=== PATIENT | male | born 1980 ===

== ENCOUNTER 2020-06-16 14:15 | Inpatient (IN) | payer OTHER, SELFPAY ==
[2020-06-16] MEDS ORDERED: cefTRIAXone/NS 1 GM/50 ML 1 GM/50 ML BAG IV ONE (14:43)
[2020-06-16] MEDS ORDERED: predniSONE 20 MG TAB PO ONE (14:43)
[2020-06-16] MEDS ORDERED: AZITHROMYCIN 500 MG in SODIUM CHLORIDE 0.9% 250ML 250 ML IV ONE (15:00)
--- NOTE | 2020-06-16 15:34 | XRay Report ---
XR chest 1V ap INDICATION / CLINICAL INFORMATION: Fever hypoxia exposure COVID-19. COMPARISON: None FINDINGS: SUPPORT DEVICES: None. HEART /PULMONARY VASCULATURE: No significant abnormality. LUNGS / PLEURA: Patchy bilateral airspace opacities are present. No pleural effusion. No pneumothorax . ADDITIONAL FINDINGS: No significant additional findings. IMPRESSION: Patchy bilateral airspace opacities, compatible with pneumonia. Findings are in keeping with reported history of COVID exposure. Signer Name: Varun Estrella MD Signed: 06/16/2020 3:29 PM Workstation Name: [id number]
[2020-06-16 15:50] LABS: Basophils % (Auto) 0.2 % (0.0-1.8); Hematocrit 48.3 % (35.5-45.6); Hemoglobin 16.1 gm/dl (11.8-15.2); Lymphocytes # (Auto) 1.2 K/mm3 (1.2-5.4); Lymphocytes % (Auto) 10.5 % (13.4-35.0); Mean Corpuscular HGB Conc 33 % (32-34); Mean Corpuscular Volume 88 fl (84-94); Monocytes # (Auto) 0.9 K/mm3 (0.0-0.8); Monocytes % (Auto) 7.7 % (0.0-7.3); Platelet Count 238 K/mm3 (140-440); Red Blood Count 5.52 M/mm3 (3.65-5.03); Red Cell Distribution Width 13.3 % (13.2-15.2)
--- NOTE | 2020-06-16 15:56 | Emergency Department Report ---
ED Shortness of Breath HPI - General Chief Complaint: Dyspnea/Respdistress Stated Complaint: SOB/POSSIBLE COVID Time Seen by Provider: 06/16/20 14:41 Source: patient, EMS, commercial lines manager Mode of arrival: Stretcher Limitations: Language Barrier - History of Present Illness Initial Comments: Chief complaint: Shortness of breath HPI this is a 39-year-old male with history of diabetes mellitus who presents with fever cough shortness of breath. Patient was exposed to person with known COVID-19 infection. Patient has been sick for 1 week since last Friday. He denies any pain. He arrived per EMS. EMS oxygen saturation 80% on room air. Patient required high flow oxygen via nonrebreather mask. Patient denies pain. I used [place] language line commercial lines manager per phone for history taking. Also used [place] language line commercial lines manager to explain course of treatment. MD Complaint: shortness of breath, cough -: Gradual, week(s) (1) Severity: severe Improves With: oxygen Worsens With: exertion Known History Of: other (Exposure to COVID-19) Context: other (Exposure to COVID-19) Associated Symptoms: fever, cough - Related Data Allergies Allergy/AdvReac Type Severity Reaction Status Date / Time No Known Allergies Allergy Unverified 06/16/20 14:30 ED Review of Systems ROS: Stated complaint: SOB/POSSIBLE COVID Other details as noted in HPI Comment: All other systems reviewed and negative Constitutional: fever, malaise Respiratory: cough, shortness of breath Cardiovascular: denies: chest pain Gastrointestinal: denies: abdominal pain, nausea, vomiting ED Past Medical Hx - Past Medical History Previous Medical History?: Yes Hx Diabetes: Yes - Surgical History Past Surgical History?: No - Social History Smoking Status: Never Smoker Substance Use Type: Alcohol ED Physical Exam - General Limitations: Language Barrier General appearance: alert, in distress, other (Anxious increased work of breathing rapid respiratory rate) - Head Head exam: Present: atraumatic, normocephalic - Eye Eye exam: Present: normal appearance, scleral icterus - ENT ENT exam: Present: mucous membranes moist - Neck Neck exam: Present: normal inspection, full ROM - Respiratory Respiratory exam: Present: respiratory distress, decreased breath sounds. Absent: wheezes, rales, rhonchi - Cardiovascular Cardiovascular Exam: Present: regular rate, normal rhythm, normal heart sounds. Absent: systolic murmur, diastolic murmur, rubs, gallop - GI/Abdominal GI/Abdominal exam: Present: soft, normal bowel sounds. Absent: distended, tenderness, guarding, rebound - Rectal Rectal exam: Present: deferred - Extremities Exam Extremities exam: Present: normal inspection - Back Exam Back exam: Present: normal inspection - Neurological Exam Neurological exam: Present: alert, oriented X3 - Psychiatric Psychiatric exam: Present: normal affect, anxious - Skin Skin exam: Present: warm, dry, intact, normal color. Absent: rash ED Course Vital Signs 06/16/20 06/16/20 06/16/20 14:27 14:30 14:46 Temperature 100.9 F H Pulse Rate 114 H 112 H Respiratory 36 H 57 H Rate Blood Pressure 144/87 144/87 O2 Sat by Pulse 95 95 94 Oximetry 06/16/20 06/16/20 06/16/20 14:51 15:00 15:16 Temperature Pulse Rate 115 H 117 H Respiratory 36 H 34 H 25 H Rate Blood Pressure 130/85 130/85 O2 Sat by Pulse 94 93 94 Oximetry 06/16/20 06/16/20 06/16/20 15:30 15:46 16:00 Temperature Pulse Rate 111 H 111 H 110 H Respiratory 55 H 54 H 20 Rate Blood Pressure 144/87 144/87 137/88 O2 Sat by Pulse 94 91 91 Oximetry 06/16/20 06/16/20 16:16 16:43 Temperature Pulse Rate 110 H Respiratory 64 H Rate Blood Pressure 137/88 O2 Sat by Pulse 92 97 Oximetry ED Medical Decision Making - Lab Data Result diagrams: 06/16/20 15:21 06/16/20 15:21 Laboratory Results - last 24 hr 06/16/20 06/16/20 06/16/20 15:21 15:21 15:21 WBC RBC Hgb Hct MCV MCH MCHC RDW Plt Count Lymph % (Auto) [place] % (Auto) Eos % (Auto) Baso % (Auto) Lymph # (Auto) [place] # (Auto) Eos # (Auto) Baso # (Auto) Seg Neutrophils % Seg Neutrophils # D-Dimer 349.09 H Sodium Potassium Chloride Carbon Dioxide Anion Gap BUN Creatinine Estimated GFR BUN/Creatinine Ratio Glucose 291 H Lactic Acid Calcium Ferritin 1670.0 H Total Bilirubin AST ALT Alkaline Phosphatase Lactate Dehydrogenase 316 H C-Reactive Protein 36.30 H Total Protein Albumin Albumin/Globulin Ratio 06/16/20 06/16/20 06/16/20 15:21 15:21 15:21 WBC 11.6 H RBC 5.52 H Hgb 16.1 H Hct 48.3 H MCV 88 MCH 29 MCHC 33 RDW 13.3 Plt Count 238 Lymph % (Auto) 10.5 L [place] % (Auto) 7.7 H Eos % (Auto) 0.0 Baso % (Auto) 0.2 Lymph # (Auto) 1.2 [place] # (Auto) 0.9 H Eos # (Auto) 0.0 Baso # (Auto) 0.0 Seg Neutrophils % 81.6 H Seg Neutrophils # 9.5 H D-Dimer Sodium 139 Potassium 4.4 Chloride 100.9 Carbon Dioxide 22 Anion Gap 21 BUN 13 Creatinine 0.5 L Estimated GFR > 60 BUN/Creatinine Ratio 26 Glucose 289 H Lactic Acid 1.30 Calcium 9.5 Ferritin Total Bilirubin 0.70 AST 15 ALT 24 Alkaline Phosphatase 91 Lactate Dehydrogenase C-Reactive Protein Total Protein 7.0 Albumin 3.8 L Albumin/Globulin Ratio 1.2 - Radiology Data Radiology results: report reviewed, image reviewed Chest radiograph: Radiology impression in my interpretation Patchy bilateral airspace opacities - Medical Decision Making Acute respiratory failure hypoxia due to multifocal pneumonia likely COVID-19 infection. Patient was treated with broad-spectrum antibiotics IV steroids. Patient is requiring high flow per nasal cannula. He did not tolerate Venturi mask. Patient admitted to the hospital service in fair condition. Inflammatory markers associated with COVID-19 are elevated. Patient has mild leukocytosis 11,000. Chemistry within normal limits. Critical care attestation.: If time is entered above; I have spent that time in minutes in the direct care of this critically ill patient, excluding procedure time. ED Disposition Clinical Impression: Acute respiratory failure, SIRS (systemic inflammatory response syndrome), Suspected COVID-19 virus infection Disposition: OP ADMIT IP TO THIS HOSP Is pt being admited?: Yes Does the pt Need Aspirin: No Condition: Fair
[2020-06-16 16:10] LABS: Alanine Aminotransferase 24 units/L (7-56); Albumin 3.8 g/dL (3.9-5); BUN/Creatinine Ratio 26; Blood Urea Nitrogen 13 mg/dL (9-20); Calcium 9.5 mg/dL (8.4-10.2); Hemolysis Index 8
[2020-06-16 16:24] LABS: C-Reactive Protein 36.3 mg/dL (0.00-1.30)
--- NOTE | 2020-06-16 18:23 | History and Physical Report ---
History of Present Illness Chief complaint: I cannot breathe History of present illness: 39 YO Male with DM presents to ED for evaluation. Patient states that he has been feeling sick for the past 1 week. Patient states that he has experienced subjective fever, dry cough, shortness of breath, decreased exercise tolerance, malaise, body aches over the past 1 week with worsening symptoms over the past 2 days. Patient acknowledges known coronavirus exposure 1 week ago. EMS was notified and upon arrival the patient was found to be in distress with a pulse oximetry of 80% on room air. Patient placed on supplemental oxygen via nonrebreather mask and transported to [facility] for further care and evaluation. Patient seen and evaluated in the emergency department. All lab and imaging studies reviewed. Patient found to have pulse oximetry of 80% on room air which is consistent with acute hypoxemic respiratory failure. Patient also underwent chest x-ray which revealed bilateral pneumonia. Patient admitted to medical floor and initiated on pneumonia protocol as well as coronavirus protocol. Coronavirus PCR is ordered and pending at time of admission. Patient knowledges fever. Patient denies chills, chest pain, palpitations, skin rash, prolonged travel/immobility, unilateral leg swelling, calf pain, individual/family history of DVT/PE/bleeding/blood clotting disorders. No prior admission for review. No medication listed at time of admission for reconciliation. Past History Past Medical History: diabetes Past Surgical History: No surgical history, Other (Reviewed) Social history: single, lives with family. denies: smoking, alcohol abuse, prescription drug abuse Family history: diabetes, hypertension Medications and Allergies Allergies Allergy/AdvReac Type Severity Reaction Status Date / Time No Known Allergies Allergy Unverified 06/16/20 14:30 Review of Systems Constitutional: fever, fatigue, weakness, malaise Ears, nose, mouth and throat: no ear pain, no ear discharge, no tinnitis, no decreased hearing, no nose pain Cardiovascular: no chest pain, no orthopnea, no palpitations, no rapid/irregular heart beat Respiratory: cough, cough with sputum, shortness of breath, dyspnea on exertion Gastrointestinal: no nausea, no vomiting, no diarrhea, no constipation Genitourinary Male: no hematuria, no flank pain, no discharge, no urinary frequency, no urinary hesitancy Rectal: no pain, no incontinence, no bleeding Musculoskeletal: no neck stiffness, no neck pain, no shooting arm pain, no arm numbness/tingling, no low back pain Integumentary: no rash, no pruritis, no redness, no sores, no wounds Neurological: no transient paralysis, no paralysis, no weakness, no parathesias, no numbness, no tingling, no seizures, no syncope Psychiatric: no anxiety, no memory loss, no change in sleep habits, no sleep disturbances, no insomnia, no change in appetite Endocrine: no cold intolerance, no heat intolerance, no polyphagia, no excessive thirst, no polydipsia, no polyuria Hematologic/Lymphatic: no easy bruising, no easy bleeding, no lymphedema Allergic/Immunologic: no urticaria, no allergic rhinitis, no persistent infections, no anaphylaxis Exam - Constitutional Vitals: Temp Pulse Resp BP Pulse Ox 100.9 F H 110 H 64 H 137/88 97 06/16/20 14:30 06/16/20 16:16 06/16/20 16:16 06/16/20 16:16 06/16/20 16:43 General appearance: Present: mild distress - EENT Eyes: Present: PERRL ENT: hearing intact, clear oral mucosa - Neck Neck: Present: supple, normal ROM - Respiratory Respiratory effort: labored, accessory muscle use, stridor Respiratory: bilateral: diminished, rhonchi - Cardiovascular Heart Sounds: Present: S1 & S2. Absent: rub, click - Extremities Extremities: pulses symmetrical, No edema Peripheral Pulses: within normal limits - Abdominal General gastrointestinal: Present: soft, non-tender, non-distended, normal bowel sounds Male genitourinary: Present: normal - Integumentary Integumentary: Present: clear, warm, dry - Musculoskeletal Musculoskeletal: gait normal, strength equal bilaterally - Psychiatric Psychiatric: appropriate mood/affect, intact judgment & insight - Neurologic Neurologic: CNII-XII intact, moves all extremities Results - Labs CBC & Chem 7: 06/16/20 15:21 06/16/20 15:21 Labs: Abnormal lab results 06/16/20 06/16/20 06/16/20 Range/Units 15:21 15:21 15:21 WBC (4.5-11.0) K/mm3 RBC (3.65-5.03) M/mm3 Hgb (11.8-15.2) gm/dl Hct (35.5-45.6) % Lymph % (Auto) (13.4-35.0) % [place] % (Auto) (0.0-7.3) % [place] # (Auto) (0.0-0.8) K/mm3 Seg Neutrophils % (40.0-70.0) % Seg Neutrophils # (1.8-7.7) K/mm3 D-Dimer 349.09 H (0-234) ng/mlDDU Creatinine (0.8-1.3) mg/dL Glucose 291 H (75-100) mg/dL Ferritin 1670.0 H (30.0-300.0) ng/mL Lactate Dehydrogenase 316 H (91-180) units/L C-Reactive Protein 36.30 H (0.00-1.30) mg/dL Albumin (3.9-5) g/dL 06/16/20 06/16/20 Range/Units 15:21 15:21 WBC 11.6 H (4.5-11.0) K/mm3 RBC 5.52 H (3.65-5.03) M/mm3 Hgb 16.1 H (11.8-15.2) gm/dl Hct 48.3 H (35.5-45.6) % Lymph % (Auto) 10.5 L (13.4-35.0) % [place] % (Auto) 7.7 H (0.0-7.3) % [place] # (Auto) 0.9 H (0.0-0.8) K/mm3 Seg Neutrophils % 81.6 H (40.0-70.0) % Seg Neutrophils # 9.5 H (1.8-7.7) K/mm3 D-Dimer (0-234) ng/mlDDU Creatinine 0.5 L (0.8-1.3) mg/dL Glucose 289 H (75-100) mg/dL Ferritin (30.0-300.0) ng/mL Lactate Dehydrogenase (91-180) units/L C-Reactive Protein (0.00-1.30) mg/dL Albumin 3.8 L (3.9-5) g/dL Assessment and Plan - Patient Problems (1) Acute hypoxemic respiratory failure Current Visit: Yes Status: Acute Plan to address problem: Supplemental oxygen, pulse oximetry, nebulizer therapy, chest x-ray, prone positioning while in bed, pulmonary toilet, (2) Pneumonia Current Visit: Yes Status: Acute Plan to address problem: Pneumonia protocol: Chest x-ray, CBC, CMP, supplemental oxygen, nebulizer therapy, IV antibiotic therapy, blood culture. (3) Suspected 2019 novel coronavirus infection Current Visit: Yes Status: Acute Plan to address problem: Coronavirus protocol: Contact precautions, isolation precautions, IV antibiotic therapy, IV steroid therapy, supplemental oxygen, pulse oximetry, prone positioning while in bed, (4) Diabetes Current Visit: Yes Status: Acute Plan to address problem: Consistent carbohydrate diet, sliding scale insulin therapy, Accu-Chek, hypogly cemia protocol (5) DVT prophylaxis Current Visit: Yes Status: Acute Plan to address problem: SCD to bilateral lower extremities while in bed, prophylactic anticoagulation
[2020-06-16] MEDS ORDERED: ACETAMINOPHEN 325 MG TAB PO PRN (18:24)
[2020-06-16] MEDS ORDERED: ONDANSETRON 4 MG/2 ML INJ IV PRN (18:24)
[2020-06-16] MEDS: methylPREDNISolone Sod Succinate 40 MG/1 ML INJ IV SCH (23:00)
[2020-06-16] MEDS: HEPARIN 5,000 UNIT/1 ML VIAL SUB-Q SCH (23:00)
[2020-06-17] MEDS ORDERED: methylPREDNISolone Sod Succinate 40 MG/1 ML INJ ONE (06:05)
[2020-06-17] MEDS: methylPREDNISolone Sod Succinate 40 MG/1 ML INJ IV SCH ×3 (06:22→21:37)
[2020-06-17 06:30] LABS: BUN/Creatinine Ratio 28; Blood Urea Nitrogen 22 mg/dL (9-20); Calcium 9.2 mg/dL (8.4-10.2); Hemolysis Index 10
[2020-06-17 06:35] LABS: Basophils % (Auto) 0.1 % (0.0-1.8); Eosinophils % (Auto) 0.1 % (0.0-4.3); Hematocrit 46.6 % (35.5-45.6); Hemoglobin 15.6 gm/dl (11.8-15.2); Lymphocytes % (Auto) 19.7 % (13.4-35.0); Mean Corpuscular HGB Conc 34 % (32-34); Mean Corpuscular Volume 89 fl (84-94); Monocytes # (Auto) 1.2 K/mm3 (0.0-0.8); Monocytes % (Auto) 11.7 % (0.0-7.3); Platelet Count 267 K/mm3 (140-440); Red Blood Count 5.21 M/mm3 (3.65-5.03); Red Cell Distribution Width 13.2 % (13.2-15.2)
[2020-06-17] MEDS ORDERED: AZITHROMYCIN 500 MG in SODIUM CHLORIDE 0.9% 250ML 250 ML IV SCH (10:00)
--- NOTE | 2020-06-17 11:13 | Progress Note ---
Assessment and Plan (1) Acute hypoxemic respiratory failure Current Visit: Yes Status: Acute Plan to address problem: Continue oxygen supplement Chest x-ray-shows patchy bilateral air space opacities compatible with PNA Respiratory care-bronchodilator and ABGs (2) Pneumonia Current Visit: Yes Status: Acute Plan to address problem: Chest x-ray, CBC, CMP, supplemental oxygen, Continue IV antibiotic therapy blood culture-f/u with result (3) Covid 2019 positive infection Current Visit: Yes Status: Acute Plan to address problem: Continue airborne and Contact isolation precautions, IV antibiotic therapy and systemic IV steroid therapy advised on prone positioning while in bed trend inflammatory makers d-dimer, ferritin, CRP and LDH ID following (4) Diabetes Current Visit: Yes Status: Acute Plan to address problem: Monitor blood sugar with SSI Discussed lifestyle modification, dawson Consistent carbohydrate diet and more fruits and vegetable Regular exercise and weight management (5) DVT prophylaxis Current Visit: Yes Status: Acute Plan to address problem: SCD to bilateral lower extremities while in bed, prophylactic anticoagulation Subjective Date of service: 06/17/20 Principal diagnosis: shortness of breath Interval history: Patient seen at bedside-on vapor -therm at 80% oxygen. He reports mild shortness of breath, but denies chest pain Reviewed lab, mar, and v/s and Reviewed radiology report- Chest x-ray-shows patchy bilateral air space opacities compatible with PNA Objective - Constitutional Vitals: Vital Signs - 12hr 06/17/20 06/17/20 06/17/20 00:00 01:00 02:00 Pulse Rate 96 H Respiratory 50 H 50 H 44 H Rate Blood Pressure 129/77 121/71 118/65 O2 Sat by Pulse 91 91 91 Oximetry 06/17/20 06/17/20 06/17/20 03:00 03:45 04:00 Pulse Rate 86 Respiratory 45 H 48 H Rate Blood Pressure 120/72 114/73 O2 Sat by Pulse 92 95 89 Oximetry 06/17/20 06/17/20 06/17/20 05:00 06:00 07:00 Pulse Rate Respiratory 39 H 47 H 40 H Rate Blood Pressure 125/74 111/70 119/74 O2 Sat by Pulse 87 90 91 Oximetry 06/17/20 06/17/20 06/17/20 08:00 09:00 09:01 Pulse Rate Respiratory 45 H 49 H Rate Blood Pressure 121/81 127/84 O2 Sat by Pulse 93 94 92 Oximetry 06/17/20 10:00 Pulse Rate Respiratory 45 H Rate Blood Pressure 125/81 O2 Sat by Pulse 95 Oximetry General appearance: Present: mild distress, obese - EENT Eyes: PERRL, EOM intact ENT: hearing intact, clear oral mucosa Ears: bilateral: normal - Neck Neck: supple, normal ROM - Respiratory Respiratory effort: normal Respiratory: bilateral: diminished - Breasts Breasts: normal - Cardiovascular Heart rate: 91 Rhythm: regular Heart Sounds: Present: S1 & S2. Absent: gallop, rub Extremities: pulses intact, No edema, normal color, Full ROM - Gastrointestinal General gastrointestinal: Present: soft, non-tender, non-distended, normal bowel sounds - Genitourinary Male genitourinary: normal - Integumentary Integumentary: clear, warm, dry - Musculoskeletal Musculoskeletal: 1, strength equal bilaterally - Neurologic Neurologic: moves all extremities - Psychiatric Psychiatric: memory intact, appropriate mood/affect, intact judgment & insight - Allied health notes Allied health notes reviewed: nursing - Labs CBC & Chem 7: 06/17/20 05:44 06/17/20 05:44 Labs: Abnormal lab results 06/16/20 06/16/20 06/16/20 Range/Units 15:21 15:21 15:21 WBC (4.5-11.0) K/mm3 RBC (3.65-5.03) M/mm3 Hgb (11.8-15.2) gm/dl Hct (35.5-45.6) % Lymph % (Auto) (13.4-35.0) % [place] % (Auto) (0.0-7.3) % [place] # (Auto) (0.0-0.8) K/mm3 Seg Neutrophils % (40.0-70.0) % Seg Neutrophils # (1.8-7.7) K/mm3 D-Dimer 349.09 H (0-234) ng/mlDDU Sodium (137-145) mmol/L Chloride (98-107) mmol/L Carbon Dioxide (22-30) mmol/L BUN (9-20) mg/dL Creatinine (0.8-1.3) mg/dL Glucose 291 H (75-100) mg/dL Ferritin 1670.0 H (30.0-300.0) ng/mL Lactate Dehydrogenase 316 H (91-180) units/L C-Reactive Protein 36.30 H (0.00-1.30) mg/dL Albumin (3.9-5) g/dL 06/16/20 06/16/20 06/17/20 Range/Units 15:21 15:21 05:44 WBC 11.6 H (4.5-11.0) K/mm3 RBC 5.52 H 5.21 H (3.65-5.03) M/mm3 Hgb 16.1 H 15.6 H (11.8-15.2) gm/dl Hct 48.3 H 46.6 H (35.5-45.6) % Lymph % (Auto) 10.5 L (13.4-35.0) % [place] % (Auto) 7.7 H 11.7 H (0.0-7.3) % [place] # (Auto) 0.9 H 1.2 H (0.0-0.8) K/mm3 Seg Neutrophils % 81.6 H (40.0-70.0) % Seg Neutrophils # 9.5 H (1.8-7.7) K/mm3 D-Dimer (0-234) ng/mlDDU Sodium (137-145) mmol/L Chloride (98-107) mmol/L Carbon Dioxide (22-30) mmol/L BUN (9-20) mg/dL Creatinine 0.5 L (0.8-1.3) mg/dL Glucose 289 H (75-100) mg/dL Ferritin (30.0-300.0) ng/mL Lactate Dehydrogenase (91-180) units/L C-Reactive Protein (0.00-1.30) mg/dL Albumin 3.8 L (3.9-5) g/dL 06/17/20 Range/Units 05:44 WBC (4.5-11.0) K/mm3 RBC (3.65-5.03) M/mm3 Hgb (11.8-15.2) gm/dl Hct (35.5-45.6) % Lymph % (Auto) (13.4-35.0) % [place] % (Auto) (0.0-7.3) % [place] # (Auto) (0.0-0.8) K/mm3 Seg Neutrophils % (40.0-70.0) % Seg Neutrophils # (1.8-7.7) K/mm3 D-Dimer (0-234) ng/mlDDU Sodium 136 L (137-145) mmol/L Chloride 97.8 L (98-107) mmol/L Carbon Dioxide 20 L (22-30) mmol/L BUN 22 H (9-20) mg/dL Creatinine (0.8-1.3) mg/dL Glucose 299 H (75-100) mg/dL Ferritin (30.0-300.0) ng/mL Lactate Dehydrogenase (91-180) units/L C-Reactive Protein (0.00-1.30) mg/dL Albumin (3.9-5) g/dL
[2020-06-17] MEDS: AZITHROMYCIN 250 MG TAB PO SCH (12:27)
[2020-06-17] MEDS: HEPARIN 5,000 UNIT/1 ML VIAL SUB-Q SCH ×2 (12:27→21:37)
[2020-06-17] MEDS: cefTRIAXone/NS 2 GM/100 ML 2 GM/100 ML BAG IV SCH (12:32)
[2020-06-18] MEDS: methylPREDNISolone Sod Succinate 40 MG/1 ML INJ IV SCH (05:37)
--- NOTE | 2020-06-18 08:27 | Progress Note ---
Assessment and Plan (1) Acute hypoxemic respiratory failure Current Visit: Yes Status: Acute Plan to address problem: Continue oxygen supplement Chest x-ray-shows patchy bilateral air space opacities compatible with PNA Respiratory care-bronchodilators and ABGs (2) Pneumonia Current Visit: Yes Status: Acute Plan to address problem: Chest x-ray, CBC, CMP, supplemental oxygen, Continue IV antibiotic therapy blood culture-f/u with result (3) Covid 2019 positive infection Current Visit: Yes Status: Acute Plan to address problem: Continue airborne and Contact isolation precautions, IV antibiotic therapy and systemic IV steroid therapy advised on prone positioning while in bed trend inflammatory makers d-dimer, ferritin, CRP and LDH Ascorbic acid acid, zinc sulphate, and vitamin D ID consulted (4) Diabetes Current Visit: Yes Status: Acute Plan to address problem: Monitor blood sugar with SSI Discussed lifestyle modification, low Consistent carbohydrate diet and more fruits and vegetable Regular exercise and weight management (5) DVT prophylaxis Current Visit: Yes Status: Acute Plan to address problem: SCD to bilateral lower extremities while in bed, prophylactic anticoagulation Subjective Date of service: 06/18/20 Principal diagnosis: shortness of breath Interval history: Patient seen at bedside-on vapor -therm at 80% oxygen. He reports mild shortness of breath, but denies chest pain Reviewed lab, mar, and v/s and Reviewed radiology report- Chest x-ray-shows patchy bilateral air space opacities compatible with PNA Objective - Constitutional Vitals: Vital Signs - 12hr 06/17/20 06/17/20 06/18/20 21:33 22:45 06:49 Temperature 99.0 F 99.0 F Pulse Rate 97 H 88 Respiratory 20 20 Rate Blood Pressure 113/70 126/80 O2 Sat by Pulse 91 92 92 Oximetry General appearance: Present: mild distress, obese - EENT Eyes: PERRL, EOM intact ENT: hearing intact, clear oral mucosa Ears: bilateral: normal - Neck Neck: supple, normal ROM - Respiratory Respiratory effort: normal Respiratory: bilateral: CTA - Breasts Breasts: normal - Cardiovascular Heart rate: 88 Rhythm: regular Heart Sounds: Present: S1 & S2. Absent: gallop, rub Extremities: pulses intact, No edema, normal color, Full ROM - Gastrointestinal General gastrointestinal: Present: soft, non-tender, non-distended, normal bowel sounds - Genitourinary Male genitourinary: normal - Integumentary Integumentary: clear, warm, dry - Musculoskeletal Musculoskeletal: 1, strength equal bilaterally - Neurologic Neurologic: moves all extremities - Psychiatric Psychiatric: memory intact, appropriate mood/affect, intact judgment & insight - Allied health notes Allied health notes reviewed: nursing - Labs CBC & Chem 7: 06/17/20 05:44 06/17/20 05:44 Labs: Abnormal lab results 06/17/20 Range/Units 10:03 Coronavirus (PCR) Positive A (Negative)
[2020-06-18] MEDS: AZITHROMYCIN 250 MG TAB PO SCH (09:15)
[2020-06-18] MEDS: ASCORBIC ACID 500 MG TAB PO SCH (09:15)
[2020-06-18] MEDS: ZINC SULFATE 220 MG CAP PO SCH (09:15)
[2020-06-18] MEDS: cefTRIAXone/NS 2 GM/100 ML 2 GM/100 ML BAG IV SCH ×2 (09:16→15:57)
[2020-06-18] MEDS: HEPARIN 5,000 UNIT/1 ML VIAL SUB-Q SCH ×2 (09:16→22:23)
[2020-06-18] MEDS ORDERED: REMDESIVIR 100 MG VIAL IV ONE (10:30)
--- NOTE | 2020-06-18 10:34 | Consultation ---
History of Present Illness - Reason for Consult Consult date: 06/18/20 - History of Present Illness 39-year-old man past medical history diabetes admitted to the hospital with 1 week of fever, cough, shortness of breath, myalgias. He notes symptoms became acutely worse over the past 2 days which is initial hospital. He does not report having positive Covid exposure. He was found to be hypoxic in the emergency room and placed on nonrebreather mask. He was admitted for Covid rule out. Febrile to 100.9 current receiving ceftriaxone and azithromycin. White count is 10.2. COVID-19 positive. Cultures negative. Currently on high flow nasal cannula 35/85% Imaging personally reviewed: Chest x-ray: Patchy bilateral airspace disease. Review of Systems: Bold if positive, otherwise negative General: fevers, chills, rigors HEENT: visual disturbance, diplopia, eye pain Respiratory: cough, sputum, hemoptysis, shortness of breath Cardiovascular: chest pain, syncope Gastrointestinal: nausea, vomiting, diarrhea, abdominal pain Genitourinary: dysuria, hematuria, flank pain Musculoskeletal: neck pain, back pain, joint pain, edema Neurologic: headaches, seizures Hematologic: easy bruising or bleeding Endocrine: night sweats, acute weight loss Skin: rash, jaundice, redness Psychiatric: suicidal, homicidal ideation Past History Past Medical History: diabetes Past Surgical History: No surgical history, Other (Reviewed) Social history: single, lives with family. denies: smoking, alcohol abuse, prescription drug abuse Family history: diabetes, hypertension Medications and Allergies Allergies Allergy/AdvReac Type Severity Reaction Status Date / Time No Known Allergies Allergy Unverified 06/16/20 14:30 Active Meds: Active Medications Acetaminophen (Tylenol) 650 mg PO Q4H PRN PRN Reason: Pain MILD(1-3)/Fever >100.5/COLLAZO Ascorbic Acid (Vitamin C) 500 mg PO QDAY [facility] Last Admin: 06/18/20 09:15 Dose: 500 mg Documented by: Azithromycin (Zithromax) 500 mg PO QDAY KATH[facility] Stop: 06/20/20 10:01 Last Admin: 06/18/20 09:15 Dose: 500 mg Documented by: Cholecalciferol (Vitamin D3) 5,000 unit PO DAILY [facility] Dexamethasone (Decadron) 6 mg IV DAILY [facility] Stop: 06/27/20 10:01 Heparin Sodium (Porcine) (Heparin) 5,000 unit SUB-Q Q12HR [facility] Last Admin: 06/18/20 09:16 Dose: 5,000 unit Documented by: Ceftriaxone Sodium (Rocephin/Ns 2 Gm/100 Ml) 2 gm in 100 mls @ 200 mls/hr IV Q24HR [facility]; Protocol Last Admin: 06/18/20 09:16 Dose: 200 mls/hr Documented by: Ondansetron HCl (Zofran) 4 mg IV Q8H PRN PRN Reason: Nausea And Vomiting Sodium Chloride (Sodium Chloride Flush Syringe 10 Ml) 10 ml IV BID [facility] Last Admin: 06/18/20 09:18 Dose: 10 ml Documented by: Sodium Chloride (Sodium Chloride Flush Syringe 10 Ml) 10 ml IV PRN PRN PRN Reason: LINE FLUSH Last Admin: 06/18/20 05:38 Dose: 10 ml Documented by: Zinc Sulfate (Zinc Sulfate) 220 mg PO QDAY [facility] Last Admin: 06/18/20 09:15 Dose: 220 mg Documented by: Physical Examination - Physical Exam Narrative exam: Physical exam deferred due to PPE conservation strategy. Please refer to primary team's note. - Constitutional Vitals: Vital Signs Temp Pulse Resp BP Pulse Ox 99.0 F 88 20 126/80 93 06/18/20 06:49 06/18/20 06:49 06/18/20 06:49 06/18/20 06:49 06/18/20 09:58 Temperature -Last 24 Hours Temperature 99.0 F Temperature 99.0 F Temperature 97.4 F Results - Labs CBC & Chem 7: 06/17/20 05:44 06/17/20 05:44 Labs: Abnormal lab results 06/17/20 Range/Units 10:03 Coronavirus (PCR) Positive A (Negative) Assessment and Plan Cultures: Negative A/P: #Severe COVID-19 pneumonia: Patient presented with a week of symptoms, chest x- ray with diffuse bilateral infiltrates #Acute hypoxemic respiratory failure: Likely secondary to COVID-19 infection. Currently on #Diabetes: tight glycemic control for best outcomes. Recs: -Stop antibiotics as doubt acute bacterial pneumonia on top of COVID-19. -Dexamethasone 6 mg IV/PO daily for 10 days -Ordered remdesivir. Monitor renal and liver function while receiving. Day 1 of 5. May be discharged prior to completion of course if improved -Obtain daily inflammatory markers - ferritin, Ddimer, CRP, LDH -Proning as able -Anticoagulation per primary Thank you for the consult, we will continue to follow. Janneth Kahn MD [facility] ([facility]) O: [phone] F: [phone]
[2020-06-18] MEDS ORDERED: REMDESIVIR 200 MG in SODIUM CHLORIDE 0.9% 250ML 250 ML IV ONE (10:35)
[2020-06-18] MEDS ORDERED: INSULIN GLARGINE 100 UNITS/ML SUB-Q ONE (11:00)
[2020-06-18] MEDS ORDERED: SODIUM CHLORIDE 0.9% 50 ML IVPB IV ONE (11:30)
[2020-06-18] MEDS: CHOLECALCIFEROL (VIT D3) 5,000 UNIT TAB PO SCH (12:29)
[2020-06-18] MEDS: dexAMETHasone 4 MG/ML VIAL IV SCH (12:30)
--- NOTE | 2020-06-18 13:31 | Consultation ---
History of Present Illness Consult date: 06/18/20 Reason for consult: dyspnea, hypoxemia History of present illness: I cannot breathe History of present illness: 39 YO Male with DM presents to ED for evaluation. Patient states that he has been feeling sick for the past 1 week. Patient states that he has experienced subjective fever, dry cough, shortness of breath, decreased exercise tolerance, malaise, body aches over the past 1 week with worsening symptoms over the past 2 days. Patient acknowledges known coronavirus exposure 1 week ago. EMS was notified and upon arrival the patient was found to be in distress with a pulse oximetry of 80% on room air. Patient placed on supplemental oxygen via nonrebreather mask and transported to [facility] for further care and evaluation. Patient seen and evaluated in the emergency department. All lab and imaging studies reviewed. Patient found to have pulse oximetry of 80% on room air which is consistent with acute hypoxemic respiratory failure. Patient also underwent chest x-ray which revealed bilateral pneumonia. Patient admitted to medical floor and initiated on pneumonia protocol as well as coronavirus protocol. Coronavirus PCR is +ve. Patient knowledges fever. Patient denies chills, chest pain, palpitations, skin rash, prolonged travel/immobility, unilateral leg swelling, calf pain, individual/family history of DVT/PE/bleeding/blood clotting disorders. No prior admission for review. No medication listed at time of admission for reconciliation. Past History Past Medical History: diabetes Past Surgical History: No surgical history, Other (Reviewed) Social history: single, lives with family. denies: smoking, alcohol abuse, prescription drug abuse Family history: diabetes, hypertension Medications and Allergies Allergies Allergy/AdvReac Type Severity Reaction Status Date / Time No Known Allergies Allergy Unverified 06/16/20 14:30 Active Meds: Active Medications Acetaminophen (Tylenol) 650 mg PO Q4H PRN PRN Reason: Pain MILD(1-3)/Fever >100.5/COLLAZO Ascorbic Acid (Vitamin C) 500 mg PO QDAY [facility] Last Admin: 06/18/20 09:15 Dose: 500 mg Documented by: Cholecalciferol (Vitamin D3) 5,000 unit PO DAILY [facility] Last Admin: 06/18/20 12:29 Dose: 5,000 unit Documented by: Dexamethasone (Decadron) 6 mg IV DAILY [facility] Stop: 06/27/20 10:01 Last Admin: 06/18/20 12:30 Dose: 6 mg Documented by: Heparin Sodium (Porcine) (Heparin) 5,000 unit SUB-Q Q12HR [facility] Last Admin: 06/18/20 09:16 Dose: 5,000 unit Documented by: REMDESIVIR 100 mg/ Sodium (Chloride) 250 mls @ 500 mls/hr IV Q24HR@2100 [facility] Stop: 06/22/20 21:29 Insulin Glargine (Lantus) 10 units SUB-Q QHS [facility] Ondansetron HCl (Zofran) 4 mg IV Q8H PRN PRN Reason: Nausea And Vomiting Sodium Chloride (Sodium Chloride Flush Syringe 10 Ml) 10 ml IV BID [facility] Last Admin: 06/18/20 09:18 Dose: 10 ml Documented by: Sodium Chloride (Sodium Chloride Flush Syringe 10 Ml) 10 ml IV PRN PRN PRN Reason: LINE FLUSH Last Admin: 06/18/20 05:38 Dose: 10 ml Documented by: Sodium Chloride (Nacl 0.9%) 50 ml IV Q24HR@2100 [facility] Stop: 06/22/20 21:01 Zinc Sulfate (Zinc Sulfate) 220 mg PO QDAY [facility] Last Admin: 06/18/20 09:15 Dose: 220 mg Documented by: Review of Systems All systems: negative Constitutional: fever Cardiovascular: shortness of breath, dyspnea on exertion Respiratory: cough Physical Examination Vital signs: Vital Signs Pulse Ox 95 06/16/20 14:27 General appearance: other (Mild respiratory distress on high flow nasal cannula at 80%) Eyes: non-icteric ENT: oropharynx moist Neck: supple, no lymphadenopathy, no JVD Ascultation: Bilateral: rhonchi Gastrointestinal: normoactive bowel sounds Results - Laboratory Findings CBC and BMP: 06/17/20 05:44 06/17/20 05:44 PT/INR, D-dimer D-Dimer 349.09 ng/mlDDU (0-234) H 06/16/20 15:21 Abnormal lab findings: Abnormal Labs 06/16/20 06/16/20 06/16/20 15:21 15:21 15:21 WBC RBC Hgb Hct Lymph % (Auto) [place] % (Auto) [place] # (Auto) Seg Neutrophils % Seg Neutrophils # D-Dimer 349.09 H Sodium Chloride Carbon Dioxide BUN Creatinine Glucose 291 H Ferritin 1670.0 H Lactate Dehydrogenase 316 H C-Reactive Protein 36.30 H Albumin Coronavirus (PCR) 06/16/20 06/16/20 06/17/20 15:21 15:21 05:44 WBC 11.6 H RBC 5.52 H 5.21 H Hgb 16.1 H 15.6 H Hct 48.3 H 46.6 H Lymph % (Auto) 10.5 L [place] % (Auto) 7.7 H 11.7 H [place] # (Auto) 0.9 H 1.2 H Seg Neutrophils % 81.6 H Seg Neutrophils # 9.5 H D-Dimer Sodium Chloride Carbon Dioxide BUN Creatinine 0.5 L Glucose 289 H Ferritin Lactate Dehydrogenase C-Reactive Protein Albumin 3.8 L Coronavirus (PCR) 06/17/20 06/17/20 05:44 10:03 WBC RBC Hgb Hct Lymph % (Auto) [place] % (Auto) [place] # (Auto) Seg Neutrophils % Seg Neutrophils # D-Dimer Sodium 136 L Chloride 97.8 L Carbon Dioxide 20 L BUN 22 H Creatinine Glucose 299 H Ferritin Lactate Dehydrogenase C-Reactive Protein Albumin Coronavirus (PCR) Positive A - Diagnostic Findings Chest x-ray: image reviewed (Bilateral patchy infiltrate) Assessment and Plan Impression: COVID-19 infection with pneumonia Acute hypoxic respiratory failure Recommendation: Continue with COVID-19 protocol Continue with Decadron and remdesivir. Continue with supplemental oxygen maintain saturation over 90%. Consider convalescent plasma Prognosis guarded.
[2020-06-18] MEDS: SODIUM CHLORIDE 0.9% 50 ML IVPB IV SCH (15:58)
[2020-06-18] MEDS: INSULIN GLARGINE 100 UNITS/ML SUB-Q SCH (22:23)
[2020-06-19 06:31] LABS: Hemoglobin 15.9 gm/dl (11.8-15.2)
[2020-06-19 06:36] LABS: Basophils % (Auto) 0.1 % (0.0-1.8); Eosinophils % (Auto) 0.1 % (0.0-4.3); Hematocrit 46.9 % (35.5-45.6); Lymphocytes # (Auto) 1.8 K/mm3 (1.2-5.4); Lymphocytes % (Auto) 18.2 % (13.4-35.0); Mean Corpuscular HGB Conc 34 % (32-34); Mean Corpuscular Volume 87 fl (84-94); Monocytes # (Auto) 0.9 K/mm3 (0.0-0.8); Monocytes % (Auto) 9.7 % (0.0-7.3); Platelet Count 329 K/mm3 (140-440); Red Blood Count 5.37 M/mm3 (3.65-5.03); Red Cell Distribution Width 12.9 % (13.2-15.2)
[2020-06-19 06:47] LABS: BUN/Creatinine Ratio 39; Blood Urea Nitrogen 31 mg/dL (9-20); Calcium 9.1 mg/dL (8.4-10.2); Hemolysis Index 19
--- NOTE | 2020-06-19 08:12 | Progress Note ---
Assessment and Plan 39 y/o male with acute respiratory failure secondary to COVID 19 pneumonia. 1. needs repeat inflammatory markers 2. Continue steroids, PO would be fine if patient is able to swallow 3. Continue remdesivir 4. Need to check antibodies to see if patient would be a candidate for convalescent plasma 5. Prone as much during the day as tolerated and sleep prone at night 6. Guarded prognosis. Subjective Date of service: 06/19/20 Principal diagnosis: shortness of breath Interval history: No acute events. Remains on HFNC. Sats in the mid 90's on 35 liters and 80%. Not much change since admission. Currently on IV steroids and remdesivir. Objective - Exam Narrative Exam: Patient not examined in person to preserve PPE during the global Pandemic of COVID 19 Vital Signs - 12hr 06/18/20 06/18/20 06/19/20 21:35 23:47 03:49 Temperature 98.8 F Pulse Rate 84 Respiratory 20 Rate Blood Pressure 107/70 O2 Sat by Pulse 93 93 92 Oximetry 06/19/20 05:12 Temperature 97.3 F L Pulse Rate 75 Respiratory 20 Rate Blood Pressure 106/71 O2 Sat by Pulse 95 Oximetry Constitutional: other (Mild respiratory distress on high flow nasal cannula at 80%) Eyes: non-icteric ENT: oropharynx moist Neck: supple, no lymphadenopathy, no JVD Ascultation: Bilateral: rhonchi Gastrointestinal: normoactive bowel sounds CBC and BMP: 06/19/20 05:19 06/19/20 05:19 ABG, PT/INR, D-dimer: PT/INR, D-dimer D-Dimer 349.09 ng/mlDDU (0-234) H 06/16/20 15:21 Abnormal lab findings: Abnormal Labs 06/16/20 06/16/20 06/16/20 15:21 15:21 15:21 WBC RBC Hgb Hct RDW Lymph % (Auto) [place] % (Auto) [place] # (Auto) Seg Neutrophils % Seg Neutrophils # D-Dimer 349.09 H Sodium Chloride Carbon Dioxide BUN Creatinine Glucose 291 H POC Glucose Ferritin 1670.0 H Lactate Dehydrogenase 316 H C-Reactive Protein 36.30 H Albumin Coronavirus (PCR) 06/16/20 06/16/20 06/17/20 15:21 15:21 05:44 WBC 11.6 H RBC 5.52 H 5.21 H Hgb 16.1 H 15.6 H Hct 48.3 H 46.6 H RDW Lymph % (Auto) 10.5 L [place] % (Auto) 7.7 H 11.7 H [place] # (Auto) 0.9 H 1.2 H Seg Neutrophils % 81.6 H Seg Neutrophils # 9.5 H D-Dimer Sodium Chloride Carbon Dioxide BUN Creatinine 0.5 L Glucose 289 H POC Glucose Ferritin Lactate Dehydrogenase C-Reactive Protein Albumin 3.8 L Coronavirus (PCR) 06/17/20 06/17/20 06/18/20 05:44 10:03 21:43 WBC RBC Hgb Hct RDW Lymph % (Auto) [place] % (Auto) [place] # (Auto) Seg Neutrophils % Seg Neutrophils # D-Dimer Sodium 136 L Chloride 97.8 L Carbon Dioxide 20 L BUN 22 H Creatinine Glucose 299 H POC Glucose 386 H Ferritin Lactate Dehydrogenase C-Reactive Protein Albumin Coronavirus (PCR) Positive A 06/19/20 06/19/20 06/19/20 05:19 05:19 07:52 WBC RBC 5.37 H Hgb 15.9 H Hct 46.9 H RDW 12.9 L Lymph % (Auto) [place] % (Auto) 9.7 H [place] # (Auto) 0.9 H Seg Neutrophils % 71.9 H Seg Neutrophils # D-Dimer Sodium Chloride Carbon Dioxide 21 L BUN 31 H Creatinine Glucose 353 H POC Glucose 360 H Ferritin Lactate Dehydrogenase C-Reactive Protein Albumin Coronavirus (PCR)
[2020-06-19] MEDS ORDERED: DEXTROSE 50% IN WATER (25GM) 50 ML SYRINGE IV PRN (08:36)
[2020-06-19] MEDS: ZINC SULFATE 220 MG CAP PO SCH (09:50)
[2020-06-19] MEDS: CHOLECALCIFEROL (VIT D3) 5,000 UNIT TAB PO SCH (09:50)
[2020-06-19] MEDS: ASCORBIC ACID 500 MG TAB PO SCH (09:50)
[2020-06-19] MEDS: HEPARIN 5,000 UNIT/1 ML VIAL SUB-Q SCH ×2 (09:51→22:55)
[2020-06-19] MEDS: dexAMETHasone 4 MG/ML VIAL IV SCH (09:51)
[2020-06-19] MEDS: INSULIN LISPRO 100 UNIT/ML VIAL 3 mL SUB-Q SCH ×3 (13:42→23:09)
--- NOTE | 2020-06-19 14:57 | Progress Note ---
Assessment and Plan Cultures: Negative A/P: 39-year-old man past medical history diabetes admitted with COVID-19 pneumonia #Severe COVID-19 pneumonia: Patient presented with a week of symptoms, chest x- ray with diffuse bilateral infiltrates #Acute hypoxemic respiratory failure: Likely secondary to COVID-19 infection. Currently on high flow nasal cannula #Diabetes: tight glycemic control for best outcomes. Recs: -Stop antibiotics as doubt acute bacterial pneumonia on top of COVID-19. -Dexamethasone 6 mg IV/PO daily for 10 days -Ordered remdesivir. Monitor renal and liver function while receiving. Day 2 of 5. May be discharged prior to completion of course if improved -Obtain daily inflammatory markers - ferritin, Ddimer, CRP, LDH -Proning as able -Anticoagulation per primary Thank you for the consult, we will continue to follow. Janneth Kahn MD [facility] ([facility]) O: [phone] F: [phone] Subjective Date of service: 06/19/20 Principal diagnosis: shortness of breath Interval history: Afebrile, normal white count. Cultures remain negative. Now on high flow nasal cannula 35/80%. Objective - Exam Narrative Exam: Physical exam deferred due to PPE conservation strategy. Please refer to primary team's note. - Constitutional Vitals: Vital Signs Temp Pulse Resp BP Pulse Ox 97.3 F L 75 20 106/71 94 06/19/20 05:12 06/19/20 05:12 06/19/20 05:12 06/19/20 05:12 06/19/20 13:36 Temperature -Last 24 Hours Temperature 97.3 F Temperature 98.8 F Temperature 98.9 F - Labs CBC & Chem 7: 06/19/20 05:19 06/19/20 05:19 Labs: Abnormal lab results 06/18/20 06/19/20 06/19/20 Range/Units 21:43 05:19 05:19 RBC 5.37 H (3.65-5.03) M/mm3 Hgb 15.9 H (11.8-15.2) gm/dl Hct 46.9 H (35.5-45.6) % RDW 12.9 L (13.2-15.2) % [place] % (Auto) 9.7 H (0.0-7.3) % [place] # (Auto) 0.9 H (0.0-0.8) K/mm3 Seg Neutrophils % 71.9 H (40.0-70.0) % Carbon Dioxide 21 L (22-30) mmol/L BUN 31 H (9-20) mg/dL Glucose 353 H (75-100) mg/dL POC Glucose 386 H (70-105) mg/dL 06/19/20 06/19/20 Range/Units 07:52 13:02 RBC (3.65-5.03) M/mm3 Hgb (11.8-15.2) gm/dl Hct (35.5-45.6) % RDW (13.2-15.2) % [place] % (Auto) (0.0-7.3) % [place] # (Auto) (0.0-0.8) K/mm3 Seg Neutrophils % (40.0-70.0) % Carbon Dioxide (22-30) mmol/L BUN (9-20) mg/dL Glucose (75-100) mg/dL POC Glucose 360 H 392 H (70-105) mg/dL
--- NOTE | 2020-06-19 15:59 | Progress Note ---
Assessment and Plan - Patient Problems (1) Pneumonia due to COVID-19 virus Current Visit: Yes Status: Acute Plan to address problem: 06/17: COVID-19 PCR positive 06/16 through 06/18 antibiotic therapy, which was received by ID Infectious disease consulted Contact/droplet precautions 06/18: Initiated on remdesivir, zinc, vitamin C, vitamin D, abx dc, methylprednisone changed to dexamathsone Supplemental oxygen as needed Prone to sleep OOB 3 times daily and as needed Pulmonary consult Pulmonary hygiene Anticoagulation per COVID-19 protocol Trend inflammatory markers (2) Acute hypoxemic respiratory failure Current Visit: Yes Status: Acute (3) Diabetes Current Visit: Yes Status: Chronic Plan to address problem: 06/19 hemoglobin A1c pending SSI Lantus CC diet Accu-Cheks AC at bedtime (4) DVT prophylaxis Current Visit: Yes Status: Acute Plan to address problem: SCDs to bilateral extremities while in bed Heparin subcu History Interval history: This is a 39-year-old male with diabetes mellitus who presented to the emergency department on 06/16 with complaints of feeling sick over the past week experiencing a subjective fever, dry cough, S OB, decreased exercise intolerance, malaise, body aches which worsened over the past 2 days prior to presentation after known COVID-19 exposure. EMS was notified and upon arrival f ound the patient in distress with a pulse oximetry of 80% on room air and plan patient has developed oxygenation via nonrebreather mask. In the emergency department patient was found to have a pulse oximetry of 80% on room air which is consistent with acute hypoxemic respiratory failure and his chest x-ray revealed bilateral pneumonia. Infectious disease and pulmonology were consulted. Today on exam patient remains on supplemental oxygenation with high flow nasal cannula, he is complaining of cough and shortness of breath with exertion. With the help of a oliver filter operator patient was instructed on proning as much as possible and pulmonary hygiene. Repeat Covid markers ordered for tomorrow. 06/17: COVID-19 PCR positive 06/18:Initiated on remdesivir, zinc, vitamin C, vitamin D, abx dc, methylp rednisone changed to dexamathsone Hospitalist Physical - Constitutional Vitals: Temp Pulse Resp BP Pulse Ox 97.3 F L 75 20 106/71 94 06/19/20 05:12 06/19/20 05:12 06/19/20 05:12 06/19/20 05:12 06/19/20 13:36 General appearance: Present: mild distress, obese Results - Labs CBC & Chem 7: 06/19/20 05:19 06/19/20 05:19 Labs: Laboratory Last Values WBC 9.8 K/mm3 (4.5-11.0) 06/19/20 05:19 RBC 5.37 M/mm3 (3.65-5.03) H 06/19/20 05:19 Hgb 15.9 gm/dl (11.8-15.2) H 06/19/20 05:19 Hct 46.9 % (35.5-45.6) H 06/19/20 05:19 MCV 87 fl (84-94) 06/19/20 05:19 MCH 30 pg (28-32) 06/19/20 05:19 MCHC 34 % (32-34) 06/19/20 05:19 RDW 12.9 % (13.2-15.2) L 06/19/20 05:19 Plt Count 329 K/mm3 (140-440) 06/19/20 05:19 Lymph % (Auto) 18.2 % (13.4-35.0) 06/19/20 05:19 [place] % (Auto) 9.7 % (0.0-7.3) H 06/19/20 05:19 Eos % (Auto) 0.1 % (0.0-4.3) 06/19/20 05:19 Baso % (Auto) 0.1 % (0.0-1.8) 06/19/20 05:19 Lymph # (Auto) 1.8 K/mm3 (1.2-5.4) 06/19/20 05:19 [place] # (Auto) 0.9 K/mm3 (0.0-0.8) H 06/19/20 05:19 Eos # (Auto) 0.0 K/mm3 (0.0-0.4) 06/19/20 05:19 Baso # (Auto) 0.0 K/mm3 (0.0-0.1) 06/19/20 05:19 Seg Neutrophils % 71.9 % (40.0-70.0) H 06/19/20 05:19 Seg Neutrophils # 7.0 K/mm3 (1.8-7.7) 06/19/20 05:19 D-Dimer 349.09 ng/mlDDU (0-234) H 06/16/20 15:21 Sodium 137 mmol/L (137-145) 06/19/20 05:19 Potassium 4.7 mmol/L (3.6-5.0) 06/19/20 05:19 Chloride 99.3 mmol/L (98-107) 06/19/20 05:19 Carbon Dioxide 21 mmol/L (22-30) L 06/19/20 05:19 Anion Gap 21 mmol/L 06/19/20 05:19 BUN 31 mg/dL (9-20) H 06/19/20 05:19 Creatinine 0.8 mg/dL (0.8-1.3) 06/19/20 05:19 Estimated GFR > 60 ml/min 06/19/20 05:19 BUN/Creatinine Ratio 39 % 06/19/20 05:19 Glucose 353 mg/dL (75-100) H 06/19/20 05:19 POC Glucose 392 mg/dL (70-105) H 06/19/20 13:02 Lactic Acid 1.30 mmol/L (0.7-2.0) 06/16/20 15:21 Calcium 9.1 mg/dL (8.4-10.2) 06/19/20 05:19 Ferritin 1670.0 ng/mL (30.0-300.0) H 06/16/20 15:21 Total Bilirubin 0.70 mg/dL (0.1-1.2) 06/16/20 15:21 AST 15 units/L (5-40) 06/16/20 15:21 ALT 24 units/L (7-56) 06/16/20 15:21 Alkaline Phosphatase 91 units/L (35-129) 06/16/20 15:21 Lactate Dehydrogenase 316 units/L (91-180) H 06/16/20 15:21 C-Reactive Protein 36.30 mg/dL (0.00-1.30) H 06/16/20 15:21 Total Protein 7.0 g/dL (6.3-8.2) 06/16/20 15:21 Albumin 3.8 g/dL (3.9-5) L 06/16/20 15:21 Albumin/Globulin Ratio 1.2 % 06/16/20 15:21 Procalcitonin 0.46 ng/mL (<0.15) 06/16/20 15:21 Coronavirus (PCR) Positive (Negative) A 06/17/20 10:03 Microbiology: Microbiology 06/16/20 15:24 Peripheral/Venous Blood Culture - Preliminary NO GROWTH AFTER 48 HOURS 06/16/20 15:21 Peripheral/Venous Blood Culture - Preliminary NO GROWTH AFTER 48 HOURS Bernal/IV: Voiding Method Urinal IV Catheter Type [Right Hand] Peripheral IV IV Catheter Type [Left INT / Saline Lock Antecubital] Active Medications - Current Medications Current Medications: Generic Name Dose Route Start Last Admin Trade Name Freq PRN Reason Stop Dose Admin Acetaminophen 650 mg 06/16/20 18:24 Tylenol PO Q4H PRN Pain MILD(1-3)/Fever >100.5/COLLAZO Ascorbic Acid 500 mg 06/18/20 10:00 06/19/20 09:50 Vitamin C PO 500 mg QDAY KATHARINE Administration Cholecalciferol 5,000 unit 06/18/20 10:00 06/19/20 09:50 Vitamin D3 PO 5,000 unit DAILY [facility]INE Administration Dexamethasone 6 mg 06/20/20 10:00 Decadron PO 06/27/20 10:01 DAILY [facility] Dextrose 50 ml 06/19/20 08:36 D50w (25gm) Syringe IV Q30MIN PRN Hypoglycemia Protocol Heparin Sodium (Porcine) 5,000 unit 06/16/20 22:00 06/19/20 09:51 Heparin SUB-Q 5,000 unit Q12HR KATHARINE Administration REMDESIVIR 100 mg/ Sodium 250 mls @ 500 mls/hr 06/19/20 21:00 Chloride IV 06/22/20 21:29 Q24HR@2100 [facility] Insulin Glargine 10 units 06/18/20 22:00 06/18/20 22:23 Lantus SUB-Q 10 units QHS KATHARINE Administration Insulin Human Lispro 0 unit 06/19/20 11:30 06/19/20 13:42 Humalog SUB-Q 5 unit ACHS KATHARINE Administration Protocol Ondansetron HCl 4 mg 06/16/20 18:24 Zofran IV Q8H PRN Nausea And Vomiting Sodium Chloride 10 ml 06/16/20 22:00 06/19/20 09:51 Sodium Chloride Flush Syringe 10 Ml IV 10 ml BID KATHARINE Administration Sodium Chloride 10 ml 06/16/20 18:24 06/18/20 05:38 Sodium Chloride Flush Syringe 10 Ml IV 10 ml PRN PRN Administration LINE FLUSH Sodium Chloride 50 ml 06/18/20 11:15 06/18/20 15:58 Nacl 0.9% IV 06/22/20 21:01 50 ml Q24HR@2100 KATHARINE Administration Zinc Sulfate 220 mg 06/18/20 10:00 06/19/20 09:50 Zinc Sulfate PO 220 mg QDAY K[facility]INE Administration
[2020-06-19] MEDS ORDERED: SODIUM CHLORIDE 0.9% 50 ML IVPB IV SCH (21:30)
[2020-06-19] MEDS: REMDESIVIR 100 MG in SODIUM CHLORIDE 0.9% 250ML 250 ML IV SCH (22:54)
[2020-06-19] MEDS: SODIUM CHLORIDE 0.9% 50 ML IVPB IV SCH (22:55)
[2020-06-19] MEDS: INSULIN GLARGINE 100 UNITS/ML SUB-Q SCH (23:10)
--- NOTE | 2020-06-20 09:07 | Progress Note ---
Assessment and Plan 39 y/o male with acute respiratory failure secondary to COVID 19 pneumonia. 1. Needs ab check to see if he can get convaslescent plasma, appears he would benefit from this. 2. Continue steroids, PO would be fine if patient is able to swallow 3. Continue remdesivir 4. Prone as much during the day as tolerated and sleep prone at night 5. Guarded prognosis. Subjective Date of service: 06/20/20 Principal diagnosis: shortness of breath Interval history: Inflammatory markers are increasing despite steroids. Unsure if antibodies have been ordered to see if convaslescent plasma can be used. Objective Vital Signs - 12hr 06/19/20 06/19/20 06/20/20 22:00 22:15 04:42 Temperature 97.9 F 97.8 F Pulse Rate 74 66 Respiratory 18 18 18 Rate Respiratory 18 Rate [ Generalized] Blood Pressure 112/76 105/72 O2 Sat by Pulse 96 86 Oximetry Constitutional: other (Mild respiratory distress on high flow nasal cannula at 80%) Eyes: non-icteric ENT: oropharynx moist Neck: supple, no lymphadenopathy, no JVD Ascultation: Bilateral: rhonchi Gastrointestinal: normoactive bowel sounds CBC and BMP: 06/19/20 05:19 06/19/20 05:19 ABG, PT/INR, D-dimer: PT/INR, D-dimer D-Dimer 574.02 ng/mlDDU (0-234) H 06/19/20 16:40 Abnormal lab findings: Abnormal Labs 06/16/20 06/16/20 06/16/20 15:21 15:21 15:21 WBC RBC Hgb Hct RDW Lymph % (Auto) [place] % (Auto) [place] # (Auto) Seg Neutrophils % Seg Neutrophils # D-Dimer 349.09 H Sodium Chloride Carbon Dioxide BUN Creatinine Glucose 291 H POC Glucose Hemoglobin A1c Ferritin 1670.0 H Lactate Dehydrogenase 316 H C-Reactive Protein 36.30 H Albumin Coronavirus (PCR) 06/16/20 06/16/20 06/17/20 15:21 15:21 05:44 WBC 11.6 H RBC 5.52 H 5.21 H Hgb 16.1 H 15.6 H Hct 48.3 H 46.6 H RDW Lymph % (Auto) 10.5 L [place] % (Auto) 7.7 H 11.7 H [place] # (Auto) 0.9 H 1.2 H Seg Neutrophils % 81.6 H Seg Neutrophils # 9.5 H D-Dimer Sodium Chloride Carbon Dioxide BUN Creatinine 0.5 L Glucose 289 H POC Glucose Hemoglobin A1c Ferritin Lactate Dehydrogenase C-Reactive Protein Albumin 3.8 L Coronavirus (PCR) 06/17/20 06/17/20 06/18/20 05:44 10:03 21:43 WBC RBC Hgb Hct RDW Lymph % (Auto) [place] % (Auto) [place] # (Auto) Seg Neutrophils % Seg Neutrophils # D-Dimer Sodium 136 L Chloride 97.8 L Carbon Dioxide 20 L BUN 22 H Creatinine Glucose 299 H POC Glucose 386 H Hemoglobin A1c Ferritin Lactate Dehydrogenase C-Reactive Protein Albumin Coronavirus (PCR) Positive A 06/19/20 06/19/20 06/19/20 05:19 05:19 07:52 WBC RBC 5.37 H Hgb 15.9 H Hct 46.9 H RDW 12.9 L Lymph % (Auto) [place] % (Auto) 9.7 H [place] # (Auto) 0.9 H Seg Neutrophils % 71.9 H Seg Neutrophils # D-Dimer Sodium Chloride Carbon Dioxide 21 L BUN 31 H Creatinine Glucose 353 H POC Glucose 360 H Hemoglobin A1c Ferritin Lactate Dehydrogenase C-Reactive Protein Albumin Coronavirus (PCR) 06/19/20 06/19/20 06/19/20 13:02 16:40 16:40 WBC RBC Hgb Hct RDW Lymph % (Auto) [place] % (Auto) [place] # (Auto) Seg Neutrophils % Seg Neutrophils # D-Dimer 574.02 H Sodium Chloride Carbon Dioxide BUN Creatinine Glucose POC Glucose 392 H Hemoglobin A1c Ferritin Lactate Dehydrogenase 323 H C-Reactive Protein Albumin Coronavirus (PCR) 06/19/20 06/19/20 06/19/20 16:40 16:40 16:40 WBC RBC Hgb Hct RDW Lymph % (Auto) [place] % (Auto) [place] # (Auto) Seg Neutrophils % Seg Neutrophils # D-Dimer Sodium Chloride Carbon Dioxide BUN Creatinine Glucose POC Glucose Hemoglobin A1c 10.8 H Ferritin 2098.0 H Lactate Dehydrogenase C-Reactive Protein 5.10 H Albumin Coronavirus (PCR) 06/19/20 06/19/20 06/20/20 17:50 23:00 08:12 WBC RBC Hgb Hct RDW Lymph % (Auto) [place] % (Auto) [place] # (Auto) Seg Neutrophils % Seg Neutrophils # D-Dimer Sodium Chloride Carbon Dioxide BUN Creatinine Glucose POC Glucose 412 H 317 H 286 H Hemoglobin A1c Ferritin Lactate Dehydrogenase C-Reactive Protein Albumin Coronavirus (PCR)
[2020-06-20] MEDS ORDERED: DEXAMETHASONE 4 MG TAB PO SCH (10:00)
[2020-06-20] MEDS: INSULIN LISPRO 100 UNIT/ML VIAL 3 mL SUB-Q SCH ×4 (10:16→22:27)
[2020-06-20] MEDS: HEPARIN 5,000 UNIT/1 ML VIAL SUB-Q SCH ×2 (10:17→22:26)
[2020-06-20] MEDS: ZINC SULFATE 220 MG CAP PO SCH (10:17)
[2020-06-20] MEDS: ASCORBIC ACID 500 MG TAB PO SCH (10:17)
[2020-06-20] MEDS: DEXAMETHASONE 4 MG TAB PO SCH (10:17)
[2020-06-20] MEDS: CHOLECALCIFEROL (VIT D3) 5,000 UNIT TAB PO SCH (10:28)
--- NOTE | 2020-06-20 11:52 | Progress Note ---
Assessment and Plan Cultures: Negative A/P: 39-year-old man past medical history diabetes admitted with COVID-19 pneumonia #Severe COVID-19 pneumonia: Patient presented with a week of symptoms, chest x- ray with diffuse bilateral infiltrates #Acute hypoxemic respiratory failure: Likely secondary to COVID-19 infection. Currently on high flow nasal cannula #Diabetes: tight glycemic control for best outcomes. Recs: -Dexamethasone 6 mg IV/PO daily for 10 days -Ordered remdesivir. Monitor renal and liver function while receiving. Day 3 of 5. May be discharged prior to completion of course if improved -Obtain daily inflammatory markers - ferritin, Ddimer, CRP, LDH -Proning as able -Anticoagulation per primary -Follow up COVID antibody Thank you for the consult, we will continue to follow. Janneth Kahn MD [facility] ([facility]) O: [phone] F: [phone] Subjective Date of service: 06/20/20 Principal diagnosis: shortness of breath Interval history: Afebrile, normal white count. On high flow nasal cannula 35/80%. Objective - Exam Narrative Exam: Physical exam deferred due to PPE conservation strategy. Please refer to primary team's note. - Constitutional Vitals: Vital Signs Temp Pulse Resp BP Pulse Ox 97.8 F 66 18 105/72 86 06/20/20 04:42 06/20/20 04:42 06/20/20 04:42 06/20/20 04:42 06/20/20 04:42 Temperature -Last 24 Hours Temperature 97.8 F Temperature 97.9 F Temperature 97.8 F - Labs CBC & Chem 7: 06/19/20 05:19 06/19/20 05:19 Labs: Abnormal lab results 06/19/20 06/19/20 06/19/20 Range/Units 13:02 16:40 16:40 D-Dimer 574.02 H (0-234) ng/mlDDU POC Glucose 392 H (70-105) mg/dL Hemoglobin A1c (4-6) % Ferritin (30.0-300.0) ng/mL Lactate Dehydrogenase 323 H (91-180) units/L C-Reactive Protein (0.00-1.30) mg/dL 06/19/20 06/19/20 06/19/20 Range/Units 16:40 16:40 16:40 D-Dimer (0-234) ng/mlDDU POC Glucose (70-105) mg/dL Hemoglobin A1c 10.8 H (4-6) % Ferritin 2098.0 H (30.0-300.0) ng/mL Lactate Dehydrogenase (91-180) units/L C-Reactive Protein 5.10 H (0.00-1.30) mg/dL 06/19/20 06/19/20 06/20/20 Range/Units 17:50 23:00 08:12 D-Dimer (0-234) ng/mlDDU POC Glucose 412 H 317 H 286 H (70-105) mg/dL Hemoglobin A1c (4-6) % Ferritin (30.0-300.0) ng/mL Lactate Dehydrogenase (91-180) units/L C-Reactive Protein (0.00-1.30) mg/dL
--- NOTE | 2020-06-20 15:58 | Progress Note ---
Assessment and Plan - Patient Problems (1) Pneumonia due to COVID-19 virus Current Visit: Yes Status: Acute Plan to address problem: 06/17: COVID-19 PCR positive 06/16 through 06/18 antibiotic therapy, which was received by ID Infectious disease consulted Contact/droplet precautions 06/18: Initiated on remdesivir, zinc, vitamin C, vitamin D, abx dc, methylprednisone changed to dexamathsone Supplemental oxygen as needed Prone to sleep OOB 3 times daily and as needed Pulmonary consult Pulmonary hygiene Anticoagulation per COVID-19 protocol Trend inflammatory markers (2) Acute hypoxemic respiratory failure Current Visit: Yes Status: Acute Plan to address problem: Patient is on supplemental oxygenation with high flow nasal cannula Wean as tolerated Dexamethasone therapy Pulmonary hygiene (3) Diabetes Current Visit: Yes Status: Chronic Plan to address problem: 06/19 hemoglobin A1c 10.8 SSI, increased to high dose scale Lantus, dose increased on 06/20 to attempt tighter glycemic control CC diet Accu-Cheks AC at bedtime May need to discharge with Metformin low-dose Encourage dietary changes and increase physical activity upon discharge as tolerated (4) DVT prophylaxis Current Visit: Yes Status: Acute Plan to address problem: SCDs to bilateral extremities while in bed Heparin subcu History Interval history: This is a 39-year-old male with diabetes mellitus who presented to the emergency department on 06/16 with complaints of feeling sick over the past week experiencing a subjective fever, dry cough, S OB, decreased exercise intolerance, malaise, body aches which worsened over the past 2 days prior to presentation after known COVID-19 exposure. EMS was notified and upon arrival found the patient in distress with a pulse oximetry of 80% on room air and plan patient has developed oxygenation via nonrebreather mask. In the emergency department patient was found to have a pulse oximetry of 80% on room air which is consistent with acute hypoxemic respiratory failure and his chest x-ray revealed bilateral pneumonia. Infectious disease and pulmonology were consulted. Patient remains on high flow nasal cannula at 80% FiO2 on 30 L. Patient is on remdesivir therapy day 2/. Increased lantus and SSI to high dose for tighter BG control. 06/17: COVID-19 PCR positive 06/18:Initiated on remdesivir, zinc, vitamin C, vitamin D, abx dc, methylprednisone changed to dexamathsone 06/20: Remains in high flow nasal cannula, he is complaining of cough and shortness of breath with exertion. With the help of a securities and real estate director patient was instructed on proning as much as possible and pulmonary hygiene. Hospitalist Physical - Physical exam Narrative exam: not conducted in attempt to conserve PPE and limit exposure - Constitutional Vitals: Temp Pulse Resp BP Pulse Ox 97.6 F 99 H 22 108/69 96 06/20/20 12:43 06/20/20 12:43 06/20/20 13:00 06/20/20 12:43 06/20/20 13:00 General appearance: Present: mild distress, obese Results - Labs CBC & Chem 7: 06/19/20 05:19 06/19/20 05:19 Labs: Laboratory Last Values WBC 9.8 K/mm3 (4.5-11.0) 06/19/20 05:19 RBC 5.37 M/mm3 (3.65-5.03) H 06/19/20 05:19 Hgb 15.9 gm/dl (11.8-15.2) H 06/19/20 05:19 Hct 46.9 % (35.5-45.6) H 06/19/20 05:19 MCV 87 fl (84-94) 06/19/20 05:19 MCH 30 pg (28-32) 06/19/20 05:19 MCHC 34 % (32-34) 06/19/20 05:19 RDW 12.9 % (13.2-15.2) L 06/19/20 05:19 Plt Count 329 K/mm3 (140-440) 06/19/20 05:19 Lymph % (Auto) 18.2 % (13.4-35.0) 06/19/20 05:19 [place] % (Auto) 9.7 % (0.0-7.3) H 06/19/20 05:19 Eos % (Auto) 0.1 % (0.0-4.3) 06/19/20 05:19 Baso % (Auto) 0.1 % (0.0-1.8) 06/19/20 05:19 Lymph # (Auto) 1.8 K/mm3 (1.2-5.4) 06/19/20 05:19 [place] # (Auto) 0.9 K/mm3 (0.0-0.8) H 06/19/20 05:19 Eos # (Auto) 0.0 K/mm3 (0.0-0.4) 06/19/20 05:19 Baso # (Auto) 0.0 K/mm3 (0.0-0.1) 06/19/20 05:19 Seg Neutrophils % 71.9 % (40.0-70.0) H 06/19/20 05:19 Seg Neutrophils # 7.0 K/mm3 (1.8-7.7) 06/19/20 05:19 D-Dimer 574.02 ng/mlDDU (0-234) H 06/19/20 16:40 Sodium 137 mmol/L (137-145) 06/19/20 05:19 Potassium 4.7 mmol/L (3.6-5.0) 06/19/20 05:19 Chloride 99.3 mmol/L (98-107) 06/19/20 05:19 Carbon Dioxide 21 mmol/L (22-30) L 06/19/20 05:19 Anion Gap 21 mmol/L 06/19/20 05:19 BUN 31 mg/dL (9-20) H 06/19/20 05:19 Creatinine 0.8 mg/dL (0.8-1.3) 06/19/20 05:19 Estimated GFR > 60 ml/min 06/19/20 05:19 BUN/Creatinine Ratio 39 % 06/19/20 05:19 Glucose 353 mg/dL (75-100) H 06/19/20 05:19 POC Glucose 374 mg/dL (70-105) H 06/20/20 12:41 Hemoglobin A1c 10.8 % (4-6) H 06/19/20 16:40 Lactic Acid 1.30 mmol/L (0.7-2.0) 06/16/20 15:21 Calcium 9.1 mg/dL (8.4-10.2) 06/19/20 05:19 Ferritin 2098.0 ng/mL (30.0-300.0) H 06/19/20 16:40 Total Bilirubin 0.70 mg/dL (0.1-1.2) 06/16/20 15:21 AST 15 units/L (5-40) 06/16/20 15:21 ALT 24 units/L (7-56) 06/16/20 15:21 Alkaline Phosphatase 91 units/L (35-129) 06/16/20 15:21 Lactate Dehydrogenase 323 units/L (91-180) H 06/19/20 16:40 C-Reactive Protein 5.10 mg/dL (0.00-1.30) H 06/19/20 16:40 Total Protein 7.0 g/dL (6.3-8.2) 06/16/20 15:21 Albumin 3.8 g/dL (3.9-5) L 06/16/20 15:21 Albumin/Globulin Ratio 1.2 % 06/16/20 15:21 Procalcitonin 0.46 ng/mL (<0.15) 06/16/20 15:21 Coronavirus (PCR) Positive (Negative) A 06/17/20 10:03 Microbiology: Microbiology 06/16/20 15:24 Peripheral/Venous Blood Culture - Preliminary NO GROWTH AFTER 72 HOURS 06/16/20 15:21 Peripheral/Venous Blood Culture - Preliminary NO GROWTH AFTER 72 HOURS Bernal/IV: Voiding Method Urinal IV Catheter Type [Right Hand] Peripheral IV IV Catheter Type [Left INT / Saline Lock Antecubital] Active Medications - Current Medications Current Medications: Generic Name Dose Route Start Last Admin Trade Name Freq PRN Reason Stop Dose Admin Acetaminophen 650 mg 06/16/20 18:24 Tylenol PO Q4H PRN Pain MILD(1-3)/Fever >100.5/COLLAZO Ascorbic Acid 500 mg 06/18/20 10:00 06/20/20 10:17 Vitamin C PO 500 mg QDAY KATHARINE Administration Cholecalciferol 5,000 unit 06/18/20 10:00 06/20/20 10:28 Vitamin D3 PO 5,000 unit DAILY KATHARINE Administration Dexamethasone 6 mg 06/20/20 10:00 06/20/20 10:17 Decadron PO 06/29/20 10:01 6 mg DAILY KATHARINE Administration Dextrose 50 ml 06/19/20 08:36 D50w (25gm) Syringe IV Q30MIN PRN Hypoglycemia Protocol Heparin Sodium (Porcine) 5,000 unit 06/16/20 22:00 06/20/20 10:17 Heparin SUB-Q 5,000 unit Q12HR KATHARINE Administration REMDESIVIR 100 mg/ Sodium 250 mls @ 500 mls/hr 06/19/20 21:00 06/19/20 22:54 Chloride IV 06/22/20 21:29 500 mls/hr Q24HR@2100 KATHARINE Administration Insulin Glargine 14 units 06/20/20 15:54 Lantus SUB-Q QHS KATHARINE Insulin Human Lispro 0 unit 06/19/20 11:30 06/20/20 13:10 Humalog SUB-Q 8 unit ACHS KATHARINE Administration Protocol Ondansetron HCl 4 mg 06/16/20 18:24 Zofran IV Q8H PRN Nausea And Vomiting Sodium Chloride 10 ml 06/16/20 22:00 06/20/20 10:18 Sodium Chloride Flush Syringe 10 Ml IV 10 ml BID KATHARINE Administration Sodium Chloride 10 ml 06/16/20 18:24 06/18/20 05:38 Sodium Chloride Flush Syringe 10 Ml IV 10 ml PRN PRN Administration LINE FLUSH Sodium Chloride 50 ml 06/18/20 11:15 06/19/20 22:55 Nacl 0.9% IV 06/22/20 21:01 50 ml Q24HR@2100 KATHARINE Administration Zinc Sulfate 220 mg 06/18/20 10:00 06/20/20 10:17 Zinc Sulfate PO 220 mg QDAY KATHARINE Administration
[2020-06-20] MEDS ORDERED: INSULIN GLARGINE 100 UNITS/ML SUB-Q SCH (22:00)
[2020-06-20] MEDS: REMDESIVIR 100 MG in SODIUM CHLORIDE 0.9% 250ML 250 ML IV SCH (22:24)
[2020-06-20] MEDS: SODIUM CHLORIDE 0.9% 50 ML IVPB IV SCH (22:25)
[2020-06-21 08:12] LABS: C-Reactive Protein 2.2 mg/dL (0.00-1.30)
[2020-06-21] MEDS: INSULIN LISPRO 100 UNIT/ML VIAL 3 mL SUB-Q SCH ×4 (09:00→23:14)
--- NOTE | 2020-06-21 09:07 | Progress Note ---
Assessment and Plan 39 y/o male with acute respiratory failure secondary to COVID 19 pneumonia. 1. Needs ab check to see if he can get convaslescent plasma, appears he would benefit from this. If this has already been done please disregard but I cannot find it in the computer. 2. Continue steroids 3. Continue remdesivir 4. Prone as much during the day as tolerated and sleep prone at night 5. May need to consider full dose anticoagulation given continued rise in D- Dimer but will ask ID opinion as well 6. Guarded prognosis. Subjective Date of service: 06/21/20 Principal diagnosis: shortness of breath Interval history: C-reactive protein and LDH improving but D-Dimer increasing. Oxygen requirement has not improved much either. No weaning done on yesterday or at least no documented attempts. Objective Vital Signs - 12hr 06/20/20 06/20/20 06/20/20 22:00 22:56 23:37 Temperature 98.6 F Pulse Rate 63 Respiratory 20 Rate Respiratory 19 Rate [ Generalized] Blood Pressure 111/65 O2 Sat by Pulse 96 94 Oximetry 06/21/20 06/21/20 06/21/20 01:00 04:23 04:52 Temperature 97.5 F L Pulse Rate 63 Respiratory 19 20 Rate Respiratory Rate [ Generalized] Blood Pressure 125/82 O2 Sat by Pulse 94 93 97 Oximetry Constitutional: other (Mild respiratory distress on high flow nasal cannula at 80%) Eyes: non-icteric ENT: oropharynx moist Neck: supple, no lymphadenopathy, no JVD Ascultation: Bilateral: rhonchi Gastrointestinal: normoactive bowel sounds CBC and BMP: 06/19/20 05:19 06/19/20 05:19 ABG, PT/INR, D-dimer: PT/INR, D-dimer D-Dimer 837.90 ng/mlDDU (0-234) H 06/21/20 07:13 Abnormal lab findings: Abnormal Labs 06/16/20 06/16/20 06/16/20 15:21 15:21 15:21 WBC RBC Hgb Hct RDW Lymph % (Auto) [place] % (Auto) [place] # (Auto) Seg Neutrophils % Seg Neutrophils # D-Dimer 349.09 H Sodium Chloride Carbon Dioxide BUN Creatinine Glucose 291 H POC Glucose Hemoglobin A1c Ferritin 1670.0 H Lactate Dehydrogenase 316 H C-Reactive Protein 36.30 H Albumin Coronavirus (PCR) 06/16/20 06/16/20 06/17/20 15:21 15:21 05:44 WBC 11.6 H RBC 5.52 H 5.21 H Hgb 16.1 H 15.6 H Hct 48.3 H 46.6 H RDW Lymph % (Auto) 10.5 L [place] % (Auto) 7.7 H 11.7 H [place] # (Auto) 0.9 H 1.2 H Seg Neutrophils % 81.6 H Seg Neutrophils # 9.5 H D-Dimer Sodium Chloride Carbon Dioxide BUN Creatinine 0.5 L Glucose 289 H POC Glucose Hemoglobin A1c Ferritin Lactate Dehydrogenase C-Reactive Protein Albumin 3.8 L Coronavirus (PCR) 06/17/20 06/17/20 06/18/20 05:44 10:03 21:43 WBC RBC Hgb Hct RDW Lymph % (Auto) [place] % (Auto) [place] # (Auto) Seg Neutrophils % Seg Neutrophils # D-Dimer Sodium 136 L Chloride 97.8 L Carbon Dioxide 20 L BUN 22 H Creatinine Glucose 299 H POC Glucose 386 H Hemoglobin A1c Ferritin Lactate Dehydrogenase C-Reactive Protein Albumin Coronavirus (PCR) Positive A 06/19/20 06/19/20 06/19/20 05:19 05:19 07:52 WBC RBC 5.37 H Hgb 15.9 H Hct 46.9 H RDW 12.9 L Lymph % (Auto) [place] % (Auto) 9.7 H [place] # (Auto) 0.9 H Seg Neutrophils % 71.9 H Seg Neutrophils # D-Dimer Sodium Chloride Carbon Dioxide 21 L BUN 31 H Creatinine Glucose 353 H POC Glucose 360 H Hemoglobin A1c Ferritin Lactate Dehydrogenase C-Reactive Protein Albumin Coronavirus (PCR) 06/19/20 06/19/20 06/19/20 13:02 16:40 16:40 WBC RBC Hgb Hct RDW Lymph % (Auto) [place] % (Auto) [place] # (Auto) Seg Neutrophils % Seg Neutrophils # D-Dimer 574.02 H Sodium Chloride Carbon Dioxide BUN Creatinine Glucose POC Glucose 392 H Hemoglobin A1c Ferritin Lactate Dehydrogenase 323 H C-Reactive Protein Albumin Coronavirus (PCR) 06/19/20 06/19/20 06/19/20 16:40 16:40 16:40 WBC RBC Hgb Hct RDW Lymph % (Auto) [place] % (Auto) [place] # (Auto) Seg Neutrophils % Seg Neutrophils # D-Dimer Sodium Chloride Carbon Dioxide BUN Creatinine Glucose POC Glucose Hemoglobin A1c 10.8 H Ferritin 2098.0 H Lactate Dehydrogenase C-Reactive Protein 5.10 H Albumin Coronavirus (PCR) 06/19/20 06/19/20 06/20/20 17:50 23:00 08:12 WBC RBC Hgb Hct RDW Lymph % (Auto) [place] % (Auto) [place] # (Auto) Seg Neutrophils % Seg Neutrophils # D-Dimer Sodium Chloride Carbon Dioxide BUN Creatinine Glucose POC Glucose 412 H 317 H 286 H Hemoglobin A1c Ferritin Lactate Dehydrogenase C-Reactive Protein Albumin Coronavirus (PCR) 06/20/20 06/20/20 06/20/20 12:41 16:43 22:22 WBC RBC Hgb Hct RDW Lymph % (Auto) [place] % (Auto) [place] # (Auto) Seg Neutrophils % Seg Neutrophils # D-Dimer Sodium Chloride Carbon Dioxide BUN Creatinine Glucose POC Glucose 374 H 315 H 316 H Hemoglobin A1c Ferritin Lactate Dehydrogenase C-Reactive Protein Albumin Coronavirus (PCR) 06/21/20 06/21/20 07:13 07:13 WBC RBC Hgb Hct RDW Lymph % (Auto) [place] % (Auto) [place] # (Auto) Seg Neutrophils % Seg Neutrophils # D-Dimer 837.90 H Sodium Chloride Carbon Dioxide BUN Creatinine Glucose POC Glucose Hemoglobin A1c Ferritin Lactate Dehydrogenase 231 H C-Reactive Protein 2.20 H Albumin Coronavirus (PCR)
[2020-06-21] MEDS: ZINC SULFATE 220 MG CAP PO SCH (09:57)
[2020-06-21] MEDS: INSULIN GLARGINE 100 UNITS/ML SUB-Q SCH ×2 (09:57→23:12)
[2020-06-21] MEDS: ASCORBIC ACID 500 MG TAB PO SCH (09:57)
[2020-06-21] MEDS: CHOLECALCIFEROL (VIT D3) 5,000 UNIT TAB PO SCH (09:57)
[2020-06-21] MEDS: HEPARIN 5,000 UNIT/1 ML VIAL SUB-Q SCH ×2 (09:58→21:36)
[2020-06-21] MEDS: DEXAMETHASONE 4 MG TAB PO SCH (09:58)
--- NOTE | 2020-06-21 16:51 | Progress Note ---
Assessment and Plan Cultures: Negative A/P: 39-year-old man past medical history diabetes admitted with COVID-19 pneumonia #Severe COVID-19 pneumonia: Patient presented with a week of symptoms, chest x- ray with diffuse bilateral infiltrates #Acute hypoxemic respiratory failure: Likely secondary to COVID-19 infection. Currently on high flow nasal cannula #Diabetes: tight glycemic control for best outcomes. Recs: -Dexamethasone 6 mg IV/PO daily for 10 days -Ordered remdesivir. Monitor renal and liver function while receiving. Day 4 of 5. May be discharged prior to completion of course if improved -Obtain daily inflammatory markers - ferritin, Ddimer, CRP, LDH -Proning as able -Anticoagulation per primary -Noted Dr. Yun note, I am also unable to find the order for COVID-19 antibody test. Thank you for the consult, we will continue to follow. Janneth Kahn MD [facility] ([facility]) O: [phone] F: [phone] Subjective Date of service: 06/21/20 Principal diagnosis: shortness of breath Interval history: Afebrile, no acute changes. On high flow nasal cannula 30/80%. Objective - Exam Narrative Exam: Physical exam deferred due to PPE conservation strategy. Please refer to primary team's note. - Constitutional Vitals: Vital Signs Temp Pulse Resp BP Pulse Ox 97.5 F L 63 20 125/82 93 06/21/20 04:52 06/21/20 04:52 06/21/20 04:52 06/21/20 04:52 06/21/20 10:00 Temperature -Last 24 Hours Temperature 97.5 F Temperature 98.6 F - Labs CBC & Chem 7: 06/19/20 05:19 06/19/20 05:19 Labs: Abnormal lab results 06/20/20 06/21/20 06/21/20 Range/Units 22:22 07:13 07:13 D-Dimer 837.90 H (0-234) ng/mlDDU POC Glucose 316 H (70-105) mg/dL Lactate Dehydrogenase 231 H (91-180) units/L C-Reactive Protein 2.20 H (0.00-1.30) mg/dL 06/21/20 06/21/20 Range/Units 09:14 13:44 D-Dimer (0-234) ng/mlDDU POC Glucose 229 H 416 H (70-105) mg/dL Lactate Dehydrogenase (91-180) units/L C-Reactive Protein (0.00-1.30) mg/dL
--- NOTE | 2020-06-21 17:00 | Progress Note ---
<IAINGEOFF HRosaura - Last Filed: 06/21/20 17:06> Assessment and Plan - Patient Problems (1) Pneumonia due to COVID-19 virus Current Visit: Yes Status: Acute Plan to address problem: 06/17: COVID-19 PCR positive 06/16 through 06/18 antibiotic therapy, which was received by ID Infectious disease consulted Contact/droplet precautions 06/18: Initiated on remdesivir, zinc, vitamin C, vitamin D, abx dc, methylprednisone changed to dexamathsone Supplemental oxygen as needed Prone to sleep OOB 3 times daily and as needed Pulmonary consult Pulmonary hygiene Anticoagulation per COVID-19 protocol Trend inflammatory markers 07/01 SARs CoV 2 antibody test ordered, consent obtained for transfusion of convalescent plasma if antibody testing is negative Will need to discharge with Eliquis 2.5 twice daily for 30 days (2) Acute hypoxemic respiratory failure Current Visit: Yes Status: Acute Plan to address problem: Patient is on supplemental oxygenation with high flow nasal cannula Wean as tolerated Dexamethasone therapy Pulmonary hygiene (3) Diabetes Current Visit: Yes Status: Chronic Plan to address problem: 06/19 hemoglobin A1c 10.8 SSI, increased to high dose scale Lantus, dose increased on 06/20 to attempt tighter glycemic control, 07/01 dosing increased CC diet Accu-Cheks AC at bedtime May need to discharge with Metformin low-dose Encourage dietary changes and increase physical activity upon discharge as tolerated (6) DVT prophylaxis Current Visit: Yes Status: Acute Plan to address problem: SCDs to bilateral extremities while in bed Heparin subcu while inpt We will need to discharge with Eliquis 2.5mg twice daily for 30 days History Interval history: This is a 39-year-old male with diabetes mellitus who presented to the emergency department on 06/16 with complaints of feeling sick over the past week experiencing a subjective fever, dry cough, S OB, decreased exercise intolerance, malaise, body aches which worsened over the past 2 days prior to presentation after known COVID-19 exposure. EMS was notified and upon arrival found the patient in distress with a pulse oximetry of 80% on room air and plan patient has developed oxygenation via nonrebreather mask. In the emergency department patient was found to have a pulse oximetry of 80% on room air which is consistent with acute hypoxemic respiratory failure and his chest x-ray revealed bilateral pneumonia. Infectious disease and pulmonology were consulted. Patient remains on high flow NC at 80% FiO2. COVID-19 antibody test ordered for possible convalescent plasma transfusion given minimal provement in oxygenation. COVID-19 plasma transfusion consent obtained with the help of the language line. Patient states that he still get shortness of breath with any exertion and is still coughing. Lantus dosing increased for persistent hyperglycemia. 06/17: COVID-19 PCR positive 06/18:Initiated on remdesivir, zinc, vitamin C, vitamin D, abx dc, methylprednisone changed to dexamathsone 06/20: Remains in high flow nasal cannula, he is complaining of cough and shortness of breath with exertion. With the help of a consular officer patient was instructed on proning as much as possible and pulmonary hygiene. Patient remains on high flow nasal cannula at 80% FiO2 on 30 L. Patient is on remd esivir therapy day 08/24. Increased lantus and SSI to high dose for tighter BG control. Hospitalist Physical - Constitutional Vitals: Temp Pulse Resp BP Pulse Ox 97.5 F L 63 20 125/82 93 06/21/20 04:52 06/21/20 04:52 06/21/20 04:52 06/21/20 04:52 06/21/20 10:00 General appearance: Present: no acute distress, mild distress, obese - EENT Eyes: Present: PERRL, EOM intact ENT: hearing intact, clear oral mucosa - Neck Neck: Present: supple, normal ROM - Respiratory Respiratory effort: normal Respiratory: bilateral: diminished - Cardiovascular Rhythm: regular Heart Sounds: Present: S1 & S2. Absent: systolic murmur, diastolic murmur - Extremities Extremities: no ischemia, pulses intact, pulses symmetrical, No edema, normal temperature, normal color, Full ROM Peripheral Pulses: within normal limits - Abdominal General gastrointestinal: soft, non-tender, non-distended, normal bowel sounds - Integumentary Integumentary: Present: clear, warm, dry - Psychiatric Psychiatric: appropriate mood/affect, cooperative - Neurologic Neurologic: CNII-XII intact, no focal deficits, moves all extremities Results - Labs CBC & Chem 7: 06/19/20 05:19 06/19/20 05:19 Labs: Laboratory Last Values WBC 9.8 K/mm3 (4.5-11.0) 06/19/20 05:19 RBC 5.37 M/mm3 (3.65-5.03) H 06/19/20 05:19 Hgb 15.9 gm/dl (11.8-15.2) H 06/19/20 05:19 Hct 46.9 % (35.5-45.6) H 06/19/20 05:19 MCV 87 fl (84-94) 06/19/20 05:19 MCH 30 pg (28-32) 06/19/20 05:19 MCHC 34 % (32-34) 06/19/20 05:19 RDW 12.9 % (13.2-15.2) L 06/19/20 05:19 Plt Count 329 K/mm3 (140-440) 06/19/20 05:19 Lymph % (Auto) 18.2 % (13.4-35.0) 06/19/20 05:19 [place] % (Auto) 9.7 % (0.0-7.3) H 06/19/20 05:19 Eos % (Auto) 0.1 % (0.0-4.3) 06/19/20 05:19 Baso % (Auto) 0.1 % (0.0-1.8) 06/19/20 05:19 Lymph # (Auto) 1.8 K/mm3 (1.2-5.4) 06/19/20 05:19 [place] # (Auto) 0.9 K/mm3 (0.0-0.8) H 06/19/20 05:19 Eos # (Auto) 0.0 K/mm3 (0.0-0.4) 06/19/20 05:19 Baso # (Auto) 0.0 K/mm3 (0.0-0.1) 06/19/20 05:19 Seg Neutrophils % 71.9 % (40.0-70.0) H 06/19/20 05:19 Seg Neutrophils # 7.0 K/mm3 (1.8-7.7) 06/19/20 05:19 D-Dimer 837.90 ng/mlDDU (0-234) H 06/21/20 07:13 Sodium 137 mmol/L (137-145) 06/19/20 05:19 Potassium 4.7 mmol/L (3.6-5.0) 06/19/20 05:19 Chloride 99.3 mmol/L (98-107) 06/19/20 05:19 Carbon Dioxide 21 mmol/L (22-30) L 06/19/20 05:19 Anion Gap 21 mmol/L 06/19/20 05:19 BUN 31 mg/dL (9-20) H 06/19/20 05:19 Creatinine 0.8 mg/dL (0.8-1.3) 06/19/20 05:19 Estimated GFR > 60 ml/min 06/19/20 05:19 BUN/Creatinine Ratio 39 % 06/19/20 05:19 Glucose 353 mg/dL (75-100) H 06/19/20 05:19 POC Glucose 416 mg/dL (70-105) H 06/21/20 13:44 Hemoglobin A1c 10.8 % (4-6) H 06/19/20 16:40 Lactic Acid 1.30 mmol/L (0.7-2.0) 06/16/20 15:21 Calcium 9.1 mg/dL (8.4-10.2) 06/19/20 05:19 Ferritin 2098.0 ng/mL (30.0-300.0) H 06/19/20 16:40 Total Bilirubin 0.70 mg/dL (0.1-1.2) 06/16/20 15:21 AST 15 units/L (5-40) 06/16/20 15:21 ALT 24 units/L (7-56) 06/16/20 15:21 Alkaline Phosphatase 91 units/L (35-129) 06/16/20 15:21 Lactate Dehydrogenase 231 units/L (91-180) H 06/21/20 07:13 C-Reactive Protein 2.20 mg/dL (0.00-1.30) H 06/21/20 07:13 Total Protein 7.0 g/dL (6.3-8.2) 06/16/20 15:21 Albumin 3.8 g/dL (3.9-5) L 06/16/20 15:21 Albumin/Globulin Ratio 1.2 % 06/16/20 15:21 Procalcitonin 0.46 ng/mL (<0.15) 06/16/20 15:21 Coronavirus (PCR) Positive (Negative) A 06/17/20 10:03 Blood Type O POSITIVE 06/21/20 13:00 Antibody Screen Negative 06/21/20 13:00 Microbiology: Microbiology 06/16/20 15:24 Peripheral/Venous Blood Culture - Preliminary NO GROWTH AFTER 4 DAYS 06/16/20 15:21 Peripheral/Venous Blood Culture - Preliminary NO GROWTH AFTER 4 DAYS Bernal/IV: Voiding Method Urinal IV Catheter Type [Right Hand] Peripheral IV IV Catheter Type [Left INT / Saline Lock Antecubital] Active Medications - Current Medications Current Medications: Generic Name Dose Route Start Last Admin Trade Name Freq PRN Reason Stop Dose Admin Acetaminophen 650 mg 06/16/20 18:24 Tylenol PO Q4H PRN Pain MILD(1-3)/Fever >100.5/COLLAZO Ascorbic Acid 500 mg 06/18/20 10:00 06/21/20 09:57 Vitamin C PO 500 mg QDAY KATHARINE Administration Cholecalciferol 5,000 unit 06/18/20 10:00 06/21/20 09:57 Vitamin D3 PO 5,000 unit DAILY KATHARINE Administration Dexamethasone 6 mg 06/20/20 10:00 06/21/20 09:58 Decadron PO 06/29/20 10:01 6 mg DAILY KATHARINE Administration Dextrose 50 ml 06/19/20 08:36 D50w (25gm) Syringe IV Q30MIN PRN Hypoglycemia Protocol Heparin Sodium (Porcine) 5,000 unit 06/16/20 22:00 06/21/20 09:58 Heparin SUB-Q 5,000 unit Q12HR KATHARINE Administration REMDESIVIR 100 mg/ Sodium 250 mls @ 500 mls/hr 06/19/20 21:00 06/20/20 22:24 Chloride IV 06/22/20 21:29 500 mls/hr Q24HR@2100 KATHARINE Administration Insulin Glargine 12 units 06/21/20 10:00 06/21/20 09:57 Lantus SUB-Q 12 units BID KATHARINE Administration Insulin Human Lispro 0 unit 06/19/20 11:30 06/21/20 13:55 Humalog SUB-Q 10 unit ACHS KATHARINE Administration Protocol Ondansetron HCl 4 mg 06/16/20 18:24 Zofran IV Q8H PRN Nausea And Vomiting Sodium Chloride 10 ml 06/16/20 22:00 06/21/20 09:58 Sodium Chloride Flush Syringe 10 Ml IV 10 ml BID KATHARINE Administration Sodium Chloride 10 ml 06/16/20 18:24 06/18/20 05:38 Sodium Chloride Flush Syringe 10 Ml IV 10 ml PRN PRN Administration LINE FLUSH Sodium Chloride 50 ml 06/18/20 11:15 06/20/20 22:25 Nacl 0.9% IV 06/22/20 21:01 50 ml Q24HR@2100 KATHARINE Administration Zinc Sulfate 220 mg 06/18/20 10:00 06/21/20 09:57 Zinc Sulfate PO 220 mg QDAY KATHARINE Administration <AUSTYN KELLY - Last Filed: 06/23/20 08:14> Assessment and Plan Assessment and plan: I agree with history, examination and assessment and plan as written by Geoff Washington NP. Patient still on high oxygen-85% Covid antibodies positive so does not qualify for convalescent plasma Hospitalist Physical - Constitutional Vitals: Temp Pulse Resp BP Pulse Ox 97.4 F L 57 L 22 96/61 99 06/23/20 05:28 06/23/20 05:28 06/23/20 05:28 06/23/20 05:28 06/23/20 05:28 Results - Labs CBC & Chem 7: 06/19/20 05:19 06/23/20 05:31 Labs: Laboratory Last Values WBC 9.8 K/mm3 (4.5-11.0) 06/19/20 05:19 RBC 5.37 M/mm3 (3.65-5.03) H 06/19/20 05:19 Hgb 15.9 gm/dl (11.8-15.2) H 06/19/20 05:19 Hct 46.9 % (35.5-45.6) H 06/19/20 05:19 MCV 87 fl (84-94) 06/19/20 05:19 MCH 30 pg (28-32) 06/19/20 05:19 MCHC 34 % (32-34) 06/19/20 05:19 RDW 12.9 % (13.2-15.2) L 06/19/20 05:19 Plt Count 329 K/mm3 (140-440) 06/19/20 05:19 Lymph % (Auto) 18.2 % (13.4-35.0) 06/19/20 05:19 [place] % (Auto) 9.7 % (0.0-7.3) H 06/19/20 05:19 Eos % (Auto) 0.1 % (0.0-4.3) 06/19/20 05:19 Baso % (Auto) 0.1 % (0.0-1.8) 06/19/20 05:19 Lymph # (Auto) 1.8 K/mm3 (1.2-5.4) 06/19/20 05:19 [place] # (Auto) 0.9 K/mm3 (0.0-0.8) H 06/19/20 05:19 Eos # (Auto) 0.0 K/mm3 (0.0-0.4) 06/19/20 05:19 Baso # (Auto) 0.0 K/mm3 (0.0-0.1) 06/19/20 05:19 Seg Neutrophils % 71.9 % (40.0-70.0) H 06/19/20 05:19 Seg Neutrophils # 7.0 K/mm3 (1.8-7.7) 06/19/20 05:19 D-Dimer 560.69 ng/mlDDU (0-234) H 06/23/20 05:31 Sodium 137 mmol/L (137-145) 06/23/20 05:31 Potassium 3.7 mmol/L (3.6-5.0) 06/23/20 05:31 Chloride 101.5 mmol/L (98-107) 06/23/20 05:31 Carbon Dioxide 26 mmol/L (22-30) 06/23/20 05:31 Anion Gap 13 mmol/L 06/23/20 05:31 BUN 19 mg/dL (9-20) 06/23/20 05:31 Creatinine 0.6 mg/dL (0.8-1.3) L 06/23/20 05:31 Estimated GFR > 60 ml/min 06/23/20 05:31 BUN/Creatinine Ratio 32 % 06/23/20 05:31 Glucose 201 mg/dL (75-100) H 06/23/20 05:31 POC Glucose 224 mg/dL (70-105) H 06/22/20 21:39 Hemoglobin A1c 10.8 % (4-6) H 06/19/20 16:40 Lactic Acid 1.30 mmol/L (0.7-2.0) 06/16/20 15:21 Calcium 8.8 mg/dL (8.4-10.2) 06/23/20 05:31 Ferritin 1770.0 ng/mL (30.0-300.0) H 06/23/20 05:31 Total Bilirubin 0.40 mg/dL (0.1-1.2) 06/22/20 05:12 AST 42 units/L (5-40) H 06/22/20 05:12 ALT 48 units/L (7-56) 06/22/20 05:12 Alkaline Phosphatase 70 units/L (35-129) 06/22/20 05:12 Lactate Dehydrogenase 189 units/L (91-180) H 06/23/20 05:31 C-Reactive Protein 1.20 mg/dL (0.00-1.30) 06/23/20 05:31 Total Protein 6.4 g/dL (6.3-8.2) 06/22/20 05:12 Albumin 3.0 g/dL (3.9-5) L 06/22/20 05:12 Albumin/Globulin Ratio 0.9 % 06/22/20 05:12 Procalcitonin 0.46 ng/mL (<0.15) 06/16/20 15:21 Coronavirus (PCR) Positive (Negative) A 06/17/20 10:03 SARS-CoV-2 IgG Ab Reactive (NonReactive) A 06/21/20 13:02 Blood Type O POSITIVE 06/21/20 13:00 Antibody Screen Negative 06/21/20 13:00 Bernal/IV: Voiding Method Urinal IV Catheter Type [Right Hand] Peripheral IV IV Catheter Type [Left INT / Saline Lock Antecubital] Active Medications - Current Medications Current Medications: Generic Name Dose Route Start Last Admin Trade Name Freq PRN Reason Stop Dose Admin Acetaminophen 650 mg 06/16/20 18:24 Tylenol PO Q4H PRN Pain MILD(1-3)/Fever >100.5/COLLAZO Ascorbic Acid 500 mg 06/18/20 10:00 06/22/20 09:20 Vitamin C PO 500 mg QDAY KATHARINE Administration Cholecalciferol 5,000 unit 06/18/20 10:00 06/22/20 11:28 Vitamin D3 PO 5,000 unit DAILY KATHARINE Administration Dexamethasone 6 mg 06/20/20 10:00 06/22/20 09:20 Decadron PO 06/29/20 10:01 6 mg DAILY KATHARINE Administration Dextrose 50 ml 06/19/20 08:36 D50w (25gm) Syringe IV Q30MIN PRN Hypoglycemia Protocol Heparin Sodium (Porcine) 5,000 unit 06/16/20 22:00 06/22/20 22:16 Heparin SUB-Q 5,000 unit Q12HR KATHARINE Administration Insulin Glargine 18 units 06/23/20 10:00 Lantus SUB-Q BID KATHARINE Insulin Human Lispro 0 unit 06/19/20 11:30 06/22/20 22:20 Humalog SUB-Q 4 unit ACHS KATHARINE Administration Protocol Ondansetron HCl 4 mg 06/16/20 18:24 Zofran IV Q8H PRN Nausea And Vomiting Sodium Chloride 10 ml 06/16/20 22:00 06/22/20 22:28 Sodium Chloride Flush Syringe 10 Ml IV 10 ml BID KATHARINE Administration Sodium Chloride 10 ml 06/16/20 18:24 06/18/20 05:38 Sodium Chloride Flush Syringe 10 Ml IV 10 ml PRN PRN Administration LINE FLUSH Zinc Sulfate 220 mg 06/18/20 10:00 06/22/20 11:28 Zinc Sulfate PO 220 mg QDAY KATHARINE Administration
[2020-06-21] MEDS: REMDESIVIR 100 MG in SODIUM CHLORIDE 0.9% 250ML 250 ML IV SCH (21:35)
[2020-06-21] MEDS: SODIUM CHLORIDE 0.9% 50 ML IVPB IV SCH (21:35)
[2020-06-22 07:20] LABS: Alanine Aminotransferase 48 units/L (7-56); Blood Urea Nitrogen 22 mg/dL (9-20); Calcium 8.7 mg/dL (8.4-10.2); Hemolysis Index 20
[2020-06-22 08:04] LABS: BUN/Creatinine Ratio 44
--- NOTE | 2020-06-22 08:16 | Progress Note ---
Assessment and Plan 39 y/o male with acute respiratory failure secondary to COVID 19 pneumonia. 1. Wean FiO2 for sats >88% 2. Follow up antibody testing 3. Continue steroids for 10 days total 4. electrolyte replacement per primary team 5. Will continue to follow Subjective Date of service: 06/22/20 Principal diagnosis: shortness of breath Interval history: No acute events. Per documentation, down to 80% now. Sats in the mid 90's. Per IMS note, proning more now with help from security infrastructure engineer. Reviewed ID note as well. Objective Vital Signs - 12hr 06/21/20 06/22/20 06/22/20 20:20 01:00 05:08 Temperature 97.4 F L Pulse Rate 58 L Respiratory 20 20 Rate Blood Pressure 109/68 O2 Sat by Pulse 97 94 99 Oximetry Constitutional: other (Mild respiratory distress on high flow nasal cannula at 80%) Eyes: non-icteric ENT: oropharynx moist Neck: supple, no lymphadenopathy, no JVD Ascultation: Bilateral: rhonchi Gastrointestinal: normoactive bowel sounds CBC and BMP: 06/19/20 05:19 06/22/20 05:12 ABG, PT/INR, D-dimer: PT/INR, D-dimer D-Dimer 837.90 ng/mlDDU (0-234) H 06/21/20 07:13 Abnormal lab findings: Abnormal Labs 06/16/20 06/16/20 06/16/20 15:21 15:21 15:21 WBC RBC Hgb Hct RDW Lymph % (Auto) [place] % (Auto) [place] # (Auto) Seg Neutrophils % Seg Neutrophils # D-Dimer 349.09 H Sodium Potassium Chloride Carbon Dioxide BUN Creatinine Glucose 291 H POC Glucose Hemoglobin A1c Ferritin 1670.0 H AST Lactate Dehydrogenase 316 H C-Reactive Protein 36.30 H Albumin Coronavirus (PCR) 06/16/20 06/16/20 06/17/20 15:21 15:21 05:44 WBC 11.6 H RBC 5.52 H 5.21 H Hgb 16.1 H 15.6 H Hct 48.3 H 46.6 H RDW Lymph % (Auto) 10.5 L [place] % (Auto) 7.7 H 11.7 H [place] # (Auto) 0.9 H 1.2 H Seg Neutrophils % 81.6 H Seg Neutrophils # 9.5 H D-Dimer Sodium Potassium Chloride Carbon Dioxide BUN Creatinine 0.5 L Glucose 289 H POC Glucose Hemoglobin A1c Ferritin AST Lactate Dehydrogenase C-Reactive Protein Albumin 3.8 L Coronavirus (PCR) 06/17/20 06/17/20 06/18/20 05:44 10:03 21:43 WBC RBC Hgb Hct RDW Lymph % (Auto) [place] % (Auto) [place] # (Auto) Seg Neutrophils % Seg Neutrophils # D-Dimer Sodium 136 L Potassium Chloride 97.8 L Carbon Dioxide 20 L BUN 22 H Creatinine Glucose 299 H POC Glucose 386 H Hemoglobin A1c Ferritin AST Lactate Dehydrogenase C-Reactive Protein Albumin Coronavirus (PCR) Positive A 06/19/20 06/19/20 06/19/20 05:19 05:19 07:52 WBC RBC 5.37 H Hgb 15.9 H Hct 46.9 H RDW 12.9 L Lymph % (Auto) [place] % (Auto) 9.7 H [place] # (Auto) 0.9 H Seg Neutrophils % 71.9 H Seg Neutrophils # D-Dimer Sodium Potassium Chloride Carbon Dioxide 21 L BUN 31 H Creatinine Glucose 353 H POC Glucose 360 H Hemoglobin A1c Ferritin AST Lactate Dehydrogenase C-Reactive Protein Albumin Coronavirus (PCR) 06/19/20 06/19/20 06/19/20 13:02 16:40 16:40 WBC RBC Hgb Hct RDW Lymph % (Auto) [place] % (Auto) [place] # (Auto) Seg Neutrophils % Seg Neutrophils # D-Dimer 574.02 H Sodium Potassium Chloride Carbon Dioxide BUN Creatinine Glucose POC Glucose 392 H Hemoglobin A1c Ferritin AST Lactate Dehydrogenase 323 H C-Reactive Protein Albumin Coronavirus (PCR) 06/19/20 06/19/20 06/19/20 16:40 16:40 16:40 WBC RBC Hgb Hct RDW Lymph % (Auto) [place] % (Auto) [place] # (Auto) Seg Neutrophils % Seg Neutrophils # D-Dimer Sodium Potassium Chloride Carbon Dioxide BUN Creatinine Glucose POC Glucose Hemoglobin A1c 10.8 H Ferritin 2098.0 H AST Lactate Dehydrogenase C-Reactive Protein 5.10 H Albumin Coronavirus (PCR) 06/19/20 06/19/20 06/20/20 17:50 23:00 08:12 WBC RBC Hgb Hct RDW Lymph % (Auto) [place] % (Auto) [place] # (Auto) Seg Neutrophils % Seg Neutrophils # D-Dimer Sodium Potassium Chloride Carbon Dioxide BUN Creatinine Glucose POC Glucose 412 H 317 H 286 H Hemoglobin A1c Ferritin AST Lactate Dehydrogenase C-Reactive Protein Albumin Coronavirus (PCR) 06/20/20 06/20/20 06/20/20 12:41 16:43 22:22 WBC RBC Hgb Hct RDW Lymph % (Auto) [place] % (Auto) [place] # (Auto) Seg Neutrophils % Seg Neutrophils # D-Dimer Sodium Potassium Chloride Carbon Dioxide BUN Creatinine Glucose POC Glucose 374 H 315 H 316 H Hemoglobin A1c Ferritin AST Lactate Dehydrogenase C-Reactive Protein Albumin Coronavirus (PCR) 06/21/20 06/21/20 06/21/20 07:13 07:13 09:14 WBC RBC Hgb Hct RDW Lymph % (Auto) [place] % (Auto) [place] # (Auto) Seg Neutrophils % Seg Neutrophils # D-Dimer 837.90 H Sodium Potassium Chloride Carbon Dioxide BUN Creatinine Glucose POC Glucose 229 H Hemoglobin A1c Ferritin AST Lactate Dehydrogenase 231 H C-Reactive Protein 2.20 H Albumin Coronavirus (PCR) 06/21/20 06/21/20 06/21/20 13:44 19:44 23:09 WBC RBC Hgb Hct RDW Lymph % (Auto) [place] % (Auto) [place] # (Auto) Seg Neutrophils % Seg Neutrophils # D-Dimer Sodium Potassium Chloride Carbon Dioxide BUN Creatinine Glucose POC Glucose 416 H 396 H 328 H Hemoglobin A1c Ferritin AST Lactate Dehydrogenase C-Reactive Protein Albumin Coronavirus (PCR) 06/22/20 06/22/20 05:12 07:43 WBC RBC Hgb Hct RDW Lymph % (Auto) [place] % (Auto) [place] # (Auto) Seg Neutrophils % Seg Neutrophils # D-Dimer Sodium 136 L Potassium 3.3 L D Chloride Carbon Dioxide BUN 22 H Creatinine 0.5 L Glucose 256 H POC Glucose 248 H Hemoglobin A1c Ferritin AST 42 H Lactate Dehydrogenase C-Reactive Protein Albumin 3.0 L Coronavirus (PCR)
[2020-06-22] MEDS ORDERED: POTASSIUM CHLORIDE ER 20 MEQ TAB PO NR (08:30)
[2020-06-22] MEDS: ASCORBIC ACID 500 MG TAB PO SCH (09:20)
[2020-06-22] MEDS: DEXAMETHASONE 4 MG TAB PO SCH (09:20)
[2020-06-22] MEDS: INSULIN LISPRO 100 UNIT/ML VIAL 3 mL SUB-Q SCH ×4 (09:21→22:20)
[2020-06-22] MEDS: HEPARIN 5,000 UNIT/1 ML VIAL SUB-Q SCH ×2 (09:23→22:16)
[2020-06-22] MEDS: INSULIN GLARGINE 100 UNITS/ML SUB-Q SCH ×2 (09:26→22:19)
[2020-06-22] MEDS: ZINC SULFATE 220 MG CAP PO SCH (11:28)
[2020-06-22] MEDS: CHOLECALCIFEROL (VIT D3) 5,000 UNIT TAB PO SCH (11:28)
[2020-06-22] MEDS ORDERED: POTASSIUM CHLORIDE ER 20 MEQ TAB PO ONE (12:33)
--- NOTE | 2020-06-22 12:54 | Vascular Lab Report ---
DUPLEX DOPPLER LOWER EXTREMITY VEINS, BILATERAL INDICATION / CLINICAL INFORMATION: Pneumonia, systemic inflammatory response syndrome. TECHNIQUE: Duplex doppler imaging was performed through the veins of both lower extremities using venous pina beverly and other maneuvers. COMPARISON: None available. FINDINGS: RIGHT COMMON FEMORAL VEIN: Negative. RIGHT FEMORAL VEIN: Negative. RIGHT POPLITEAL VEIN: Negative. RIGHT CALF VEINS: Negative. LEFT COMMON FEMORAL VEIN: Negative. LEFT FEMORAL VEIN: Negative. LEFT POPLITEAL VEIN: Negative. LEFT CALF VEINS: Negative. ADDITIONAL FINDINGS: None. IMPRESSION: 1. No sonographic evidence for DVT in either lower extremity. Signer Name: Michael Tucker MD Signed: 06/22/2020 12:49 PM Workstation Name: [id number]
--- NOTE | 2020-06-22 13:30 | Progress Note ---
Assessment and Plan Cultures: Negative A/P: 39-year-old man past medical history diabetes admitted with COVID-19 pneumonia #Severe COVID-19 pneumonia: Patient presented with a week of symptoms, chest x- ray with diffuse bilateral infiltrates #Acute hypoxemic respiratory failure: Likely secondary to COVID-19 infection. Currently on high flow nasal cannula #Diabetes: tight glycemic control for best outcomes. Recs: -Dexamethasone 6 mg IV/PO daily for 10 days -Ordered remdesivir. Monitor renal and liver function while receiving. Day 5 of 5. May be discharged prior to completion of course if improved -Obtain daily inflammatory markers - ferritin, Ddimer, CRP, LDH -Proning as able -Anticoagulation per primary Thank you for the consult, we will continue to follow. Janneth Kahn MD [facility] O: [phone] F: [phone] Subjective Date of service: 06/22/20 Principal diagnosis: shortness of breath Interval history: Afebrile, normal white count. Remains on hyponasal cannula. Imaging personally viewed: Dopplers: No DVT Objective - Exam Narrative Exam: Physical exam deferred due to PPE conservation strategy. Please refer to primary team's note. - Constitutional Vitals: Vital Signs Temp Pulse Resp BP Pulse Ox 98.0 F 78 20 91/56 95 06/22/20 11:58 06/22/20 11:58 06/22/20 11:58 06/22/20 11:58 06/22/20 11:58 Temperature -Last 24 Hours Temperature 98.0 F Temperature 97.4 F - Labs CBC & Chem 7: 06/19/20 05:19 06/22/20 05:12 Labs: Abnormal lab results 06/21/20 06/21/20 06/21/20 Range/Units 13:02 13:44 19:44 Sodium (137-145) mmol/L Potassium (3.6-5.0) mmol/L BUN (9-20) mg/dL Creatinine (0.8-1.3) mg/dL Glucose (75-100) mg/dL POC Glucose 416 H 396 H (70-105) mg/dL AST (5-40) units/L Albumin (3.9-5) g/dL SARS-CoV-2 IgG Ab Reactive A (NonReactive) 06/21/20 06/22/20 06/22/20 Range/Units 23:09 05:12 07:43 Sodium 136 L (137-145) mmol/L Potassium 3.3 L D (3.6-5.0) mmol/L BUN 22 H (9-20) mg/dL Creatinine 0.5 L (0.8-1.3) mg/dL Glucose 256 H (75-100) mg/dL POC Glucose 328 H 248 H (70-105) mg/dL AST 42 H (5-40) units/L Albumin 3.0 L (3.9-5) g/dL SARS-CoV-2 IgG Ab (NonReactive) 06/22/20 Range/Units 13:05 Sodium (137-145) mmol/L Potassium (3.6-5.0) mmol/L BUN (9-20) mg/dL Creatinine (0.8-1.3) mg/dL Glucose (75-100) mg/dL POC Glucose 339 H (70-105) mg/dL AST (5-40) units/L Albumin (3.9-5) g/dL SARS-CoV-2 IgG Ab (NonReactive)
--- NOTE | 2020-06-22 15:21 | Progress Note ---
<IAINGEOFF RachelRosaura - Last Filed: 06/22/20 15:25> Assessment and Plan - Patient Problems (1) Pneumonia due to COVID-19 virus Current Visit: Yes Status: Acute Plan to address problem: 06/17: COVID-19 PCR positive 06/16 through 06/18 antibiotic therapy, which was received by ID Infectious disease consulted Contact/droplet precautions 06/18: Initiated on remdesivir, zinc, vitamin C, vitamin D, abx dc, methylprednisone changed to dexamathsone Supplemental oxygen as needed Prone to sleep OOB 3 times daily and as needed Pulmonary consult Pulmonary hygiene Anticoagulation per COVID-19 protocol Trend inflammatory markers 07/01 SARs CoV 2 antibody test ordered, consent obtained for transfusion of convalescent plasma if antibody testing is negative. His antibody is positive Will need to discharge with Eliquis 2.5 twice daily for 30 days (2) Acute hypoxemic respiratory failure Current Visit: Yes Status: Acute Plan to address problem: Patient is on supplemental oxygenation with high flow nasal cannula Wean as tolerated Dexamethasone therapy Pulmonary hygiene (3) Diabetes Current Visit: Yes Status: Chronic Plan to address problem: 06/19 hemoglobin A1c 10.8 SSI, increased to high dose scale Lantus, dose increased on 06/20 to attempt tighter glycemic control, 07/01 dosing increased CC diet Accu-Cheks AC at bedtime May need to discharge with Metformin low-dose Encourage dietary changes and increase physical activity upon discharge as tolerated 06/22 Lantus increased with persistent hyperglycemia (4) Hyponatremia Current Visit: Yes Status: Acute Plan to address problem: 06/22 sodium 136 Slight decrease which may be clinically insignificant Trend BMP Monitor neuro status (5) Hypokalemia Current Visit: Yes Status: Acute Plan to address problem: 06/22 potassium 3.3 Repleted Replete as necessary Trend BMP (6) DVT prophylaxis Current Visit: Yes Status: Acute Plan to address problem: SCDs to bilateral extremities while in bed Heparin subcu while inpt We will need to discharge with Eliquis 2.5mg twice daily for 30 days History Interval history: This is a 39-year-old male with diabetes mellitus who presented to the emergency department on 06/16 with complaints of feeling sick over the past week experiencing a subjective fever, dry cough, S OB, decreased exercise intolerance, malaise, body aches which worsened over the past 2 days prior to presentation after known COVID-19 exposure. EMS was notified and upon arrival found the patient in distress with a pulse oximetry of 80% on room air and plan patient has developed oxygenation via nonrebreather mask. In the emergency department patient was found to have a pulse oximetry of 80% on room air which is consistent with acute hypoxemic respiratory failure and his chest x-ray re vealed bilateral pneumonia. Infectious disease and pulmonology were consulted. Patient remains on high flow NC at 80% FiO2 however subjectively he is better. Covid antibody positive therefore is not a candidate for convalescent plasma at this time. Patient is hypokalemic this morning which was repleted. 06/17: COVID-19 PCR positive 06/18:Initiated on remdesivir, zinc, vitamin C, vitamin D, abx dc, methylprednisone changed to dexamathsone 06/20: Remains in high flow nasal cannula, he is complaining of cough and shortness of breath with exertion. With the help of a automation operator patient was instructed on proning as much as possible and pulmonary hygiene. Patient remains on high flow nasal cannula at 80% FiO2 on 30 L. Patient is on remdesivir therapy day 08/24. Increased lantus and SSI to high dose for tighter BG control. 06/21: COVID-19 antibody test ordered for possible convalescent plasma transfusion given minimal provement in oxygenation and consent obtained with the help of the language line. Patient states that he still get shortness of breath with any exertion and is still coughing. Lantus dosing increased for persistent hyperglycemia. Hospitalist Physical - Constitutional Vitals: Temp Pulse Resp BP Pulse Ox 98.0 F 78 20 91/56 95 06/22/20 11:58 06/22/20 11:58 06/22/20 11:58 06/22/20 11:58 06/22/20 11:58 General appearance: Present: no acute distress, obese - EENT Eyes: Present: PERRL, EOM intact ENT: hearing intact, clear oral mucosa - Neck Neck: Present: supple, normal ROM - Respiratory Respiratory effort: normal Respiratory: bilateral: diminished - Cardiovascular Rhythm: regular Heart Sounds: Present: S1 & S2. Absent: systolic murmur, diastolic murmur - Extremities Extremities: no ischemia, pulses intact, pulses symmetrical, No edema, normal temperature, normal color, Full ROM Peripheral Pulses: within normal limits - Abdominal General gastrointestinal: soft, non-tender, non-distended, normal bowel sounds - Integumentary Integumentary: Present: clear, warm, dry - Psychiatric Psychiatric: appropriate mood/affect, cooperative - Neurologic Neurologic: CNII-XII intact, no focal deficits, moves all extremities Results - Labs CBC & Chem 7: 06/19/20 05:19 06/22/20 05:12 Labs: Laboratory Last Values WBC 9.8 K/mm3 (4.5-11.0) 06/19/20 05:19 RBC 5.37 M/mm3 (3.65-5.03) H 06/19/20 05:19 Hgb 15.9 gm/dl (11.8-15.2) H 06/19/20 05:19 Hct 46.9 % (35.5-45.6) H 06/19/20 05:19 MCV 87 fl (84-94) 06/19/20 05:19 MCH 30 pg (28-32) 06/19/20 05:19 MCHC 34 % (32-34) 06/19/20 05:19 RDW 12.9 % (13.2-15.2) L 06/19/20 05:19 Plt Count 329 K/mm3 (140-440) 06/19/20 05:19 Lymph % (Auto) 18.2 % (13.4-35.0) 06/19/20 05:19 [place] % (Auto) 9.7 % (0.0-7.3) H 06/19/20 05:19 Eos % (Auto) 0.1 % (0.0-4.3) 06/19/20 05:19 Baso % (Auto) 0.1 % (0.0-1.8) 06/19/20 05:19 Lymph # (Auto) 1.8 K/mm3 (1.2-5.4) 06/19/20 05:19 [place] # (Auto) 0.9 K/mm3 (0.0-0.8) H 06/19/20 05:19 Eos # (Auto) 0.0 K/mm3 (0.0-0.4) 06/19/20 05:19 Baso # (Auto) 0.0 K/mm3 (0.0-0.1) 06/19/20 05:19 Seg Neutrophils % 71.9 % (40.0-70.0) H 06/19/20 05:19 Seg Neutrophils # 7.0 K/mm3 (1.8-7.7) 06/19/20 05:19 D-Dimer 837.90 ng/mlDDU (0-234) H 06/21/20 07:13 Sodium 136 mmol/L (137-145) L 06/22/20 05:12 Potassium 3.3 mmol/L (3.6-5.0) L D 06/22/20 05:12 Chloride 100.9 mmol/L (98-107) 06/22/20 05:12 Carbon Dioxide 22 mmol/L (22-30) 06/22/20 05:12 Anion Gap 16 mmol/L 06/22/20 05:12 BUN 22 mg/dL (9-20) H 06/22/20 05:12 Creatinine 0.5 mg/dL (0.8-1.3) L 06/22/20 05:12 Estimated GFR > 60 ml/min 06/22/20 05:12 BUN/Creatinine Ratio 44 % 06/22/20 05:12 Glucose 256 mg/dL (75-100) H 06/22/20 05:12 POC Glucose 339 mg/dL (70-105) H 06/22/20 13:05 Hemoglobin A1c 10.8 % (4-6) H 06/19/20 16:40 Lactic Acid 1.30 mmol/L (0.7-2.0) 06/16/20 15:21 Calcium 8.7 mg/dL (8.4-10.2) 06/22/20 05:12 Ferritin 2098.0 ng/mL (30.0-300.0) H 06/19/20 16:40 Total Bilirubin 0.40 mg/dL (0.1-1.2) 06/22/20 05:12 AST 42 units/L (5-40) H 06/22/20 05:12 ALT 48 units/L (7-56) 06/22/20 05:12 Alkaline Phosphatase 70 units/L (35-129) 06/22/20 05:12 Lactate Dehydrogenase 231 units/L (91-180) H 06/21/20 07:13 C-Reactive Protein 2.20 mg/dL (0.00-1.30) H 06/21/20 07:13 Total Protein 6.4 g/dL (6.3-8.2) 06/22/20 05:12 Albumin 3.0 g/dL (3.9-5) L 06/22/20 05:12 Albumin/Globulin Ratio 0.9 % 06/22/20 05:12 Procalcitonin 0.46 ng/mL (<0.15) 06/16/20 15:21 Coronavirus (PCR) Positive (Negative) A 06/17/20 10:03 SARS-CoV-2 IgG Ab Reactive (NonReactive) A 06/21/20 13:02 Blood Type O POSITIVE 06/21/20 13:00 Antibody Screen Negative 06/21/20 13:00 Microbiology: Microbiology 06/16/20 15:24 Peripheral/Venous Blood Culture - Final NO GROWTH AFTER 5 DAYS 06/16/20 15:21 Peripheral/Venous Blood Culture - Final NO GROWTH AFTER 5 DAYS Bernal/IV: Voiding Method Urinal IV Catheter Type [Right Hand] Peripheral IV IV Catheter Type [Left INT / Saline Lock Antecubital] Active Medications - Current Medications Current Medications: Generic Name Dose Route Start Last Admin Trade Name Freq PRN Reason Stop Dose Admin Acetaminophen 650 mg 06/16/20 18:24 Tylenol PO Q4H PRN Pain MILD(1-3)/Fever >100.5/COLLAZO Ascorbic Acid 500 mg 06/18/20 10:00 06/22/20 09:20 Vitamin C PO 500 mg QDAY KATHARINE Administration Cholecalciferol 5,000 unit 06/18/20 10:00 06/22/20 11:28 Vitamin D3 PO 5,000 unit DAILY KATHARINE Administration Dexamethasone 6 mg 06/20/20 10:00 06/22/20 09:20 Decadron PO 06/29/20 10:01 6 mg DAILY KATHAIRNE Administration Dextrose 50 ml 06/19/20 08:36 D50w (25gm) Syringe IV Q30MIN PRN Hypoglycemia Protocol Heparin Sodium (Porcine) 5,000 unit 06/16/20 22:00 06/22/20 09:23 Heparin SUB-Q 5,000 unit Q12HR KATHARINE Administration REMDESIVIR 100 mg/ Sodium 250 mls @ 500 mls/hr 06/19/20 21:00 06/21/20 21:35 Chloride IV 06/22/20 21:29 500 mls/hr Q24HR@2100 KATHARINE Administration Insulin Glargine 16 units 06/22/20 09:00 06/22/20 09:26 Lantus SUB-Q 16 units BID KATHARINE Administration Insulin Human Lispro 0 unit 06/19/20 11:30 06/22/20 13:11 Humalog SUB-Q 8 unit ACHS KATHARINE Administration Protocol Ondansetron HCl 4 mg 06/16/20 18:24 Zofran IV Q8H PRN Nausea And Vomiting Sodium Chloride 10 ml 06/16/20 22:00 06/22/20 09:28 Sodium Chloride Flush Syringe 10 Ml IV 10 ml BID KATHARINE Administration Sodium Chloride 10 ml 06/16/20 18:24 06/18/20 05:38 Sodium Chloride Flush Syringe 10 Ml IV 10 ml PRN PRN Administration LINE FLUSH Sodium Chloride 50 ml 06/18/20 11:15 06/21/20 21:35 Nacl 0.9% IV 06/22/20 21:01 50 ml Q24HR@2100 KATHARINE Administration Zinc Sulfate 220 mg 06/18/20 10:00 06/22/20 11:28 Zinc Sulfate PO 220 mg QDAY KATHARINE Administration <AUSTYN KELLY - Last Filed: 06/23/20 08:15> Assessment and Plan Assessment and plan: I agree with history, examination and assessment and plan as written by Geoff Washington NP. Still on high oxygen Continue steroids Not a candidate for convalescent plasma as he has antibodies. Hospitalist Physical - Constitutional Vitals: Temp Pulse Resp BP Pulse Ox 97.4 F L 57 L 22 96/61 99 06/23/20 05:28 06/23/20 05:28 06/23/20 05:28 06/23/20 05:28 06/23/20 05:28 Results - Labs CBC & Chem 7: 06/19/20 05:19 06/23/20 05:31 Labs: Laboratory Last Values WBC 9.8 K/mm3 (4.5-11.0) 06/19/20 05:19 RBC 5.37 M/mm3 (3.65-5.03) H 06/19/20 05:19 Hgb 15.9 gm/dl (11.8-15.2) H 06/19/20 05:19 Hct 46.9 % (35.5-45.6) H 06/19/20 05:19 MCV 87 fl (84-94) 06/19/20 05:19 MCH 30 pg (28-32) 06/19/20 05:19 MCHC 34 % (32-34) 06/19/20 05:19 RDW 12.9 % (13.2-15.2) L 06/19/20 05:19 Plt Count 329 K/mm3 (140-440) 06/19/20 05:19 Lymph % (Auto) 18.2 % (13.4-35.0) 06/19/20 05:19 [place] % (Auto) 9.7 % (0.0-7.3) H 06/19/20 05:19 Eos % (Auto) 0.1 % (0.0-4.3) 06/19/20 05:19 Baso % (Auto) 0.1 % (0.0-1.8) 06/19/20 05:19 Lymph # (Auto) 1.8 K/mm3 (1.2-5.4) 06/19/20 05:19 [place] # (Auto) 0.9 K/mm3 (0.0-0.8) H 06/19/20 05:19 Eos # (Auto) 0.0 K/mm3 (0.0-0.4) 06/19/20 05:19 Baso # (Auto) 0.0 K/mm3 (0.0-0.1) 06/19/20 05:19 Seg Neutrophils % 71.9 % (40.0-70.0) H 06/19/20 05:19 Seg Neutrophils # 7.0 K/mm3 (1.8-7.7) 06/19/20 05:19 D-Dimer 560.69 ng/mlDDU (0-234) H 06/23/20 05:31 Sodium 137 mmol/L (137-145) 06/23/20 05:31 Potassium 3.7 mmol/L (3.6-5.0) 06/23/20 05:31 Chloride 101.5 mmol/L (98-107) 06/23/20 05:31 Carbon Dioxide 26 mmol/L (22-30) 06/23/20 05:31 Anion Gap 13 mmol/L 06/23/20 05:31 BUN 19 mg/dL (9-20) 06/23/20 05:31 Creatinine 0.6 mg/dL (0.8-1.3) L 06/23/20 05:31 Estimated GFR > 60 ml/min 06/23/20 05:31 BUN/Creatinine Ratio 32 % 06/23/20 05:31 Glucose 201 mg/dL (75-100) H 06/23/20 05:31 POC Glucose 224 mg/dL (70-105) H 06/22/20 21:39 Hemoglobin A1c 10.8 % (4-6) H 06/19/20 16:40 Lactic Acid 1.30 mmol/L (0.7-2.0) 06/16/20 15:21 Calcium 8.8 mg/dL (8.4-10.2) 06/23/20 05:31 Ferritin 1770.0 ng/mL (30.0-300.0) H 06/23/20 05:31 Total Bilirubin 0.40 mg/dL (0.1-1.2) 06/22/20 05:12 AST 42 units/L (5-40) H 06/22/20 05:12 ALT 48 units/L (7-56) 06/22/20 05:12 Alkaline Phosphatase 70 units/L (35-129) 06/22/20 05:12 Lactate Dehydrogenase 189 units/L (91-180) H 06/23/20 05:31 C-Reactive Protein 1.20 mg/dL (0.00-1.30) 06/23/20 05:31 Total Protein 6.4 g/dL (6.3-8.2) 06/22/20 05:12 Albumin 3.0 g/dL (3.9-5) L 06/22/20 05:12 Albumin/Globulin Ratio 0.9 % 06/22/20 05:12 Procalcitonin 0.46 ng/mL (<0.15) 06/16/20 15:21 Coronavirus (PCR) Positive (Negative) A 06/17/20 10:03 SARS-CoV-2 IgG Ab Reactive (NonReactive) A 06/21/20 13:02 Blood Type O POSITIVE 06/21/20 13:00 Antibody Screen Negative 06/21/20 13:00 Bernal/IV: Voiding Method Urinal IV Catheter Type [Right Hand] Peripheral IV IV Catheter Type [Left INT / Saline Lock Antecubital] Active Medications - Current Medications Current Medications: Generic Name Dose Route Start Last Admin Trade Name Freq PRN Reason Stop Dose Admin Acetaminophen 650 mg 06/16/20 18:24 Tylenol PO Q4H PRN Pain MILD(1-3)/Fever >100.5/COLLAZO Ascorbic Acid 500 mg 06/18/20 10:00 06/22/20 09:20 Vitamin C PO 500 mg QDAY KATHARINE Administration Cholecalciferol 5,000 unit 06/18/20 10:00 06/22/20 11:28 Vitamin D3 PO 5,000 unit DAILY KATHARINE Administration Dexamethasone 6 mg 06/20/20 10:00 06/22/20 09:20 Decadron PO 06/29/20 10:01 6 mg DAILY KATHARINE Administration Dextrose 50 ml 06/19/20 08:36 D50w (25gm) Syringe IV Q30MIN PRN Hypoglycemia Protocol Heparin Sodium (Porcine) 5,000 unit 06/16/20 22:00 06/22/20 22:16 Heparin SUB-Q 5,000 unit Q12HR KATHARINE Administration Insulin Glargine 18 units 06/23/20 10:00 Lantus SUB-Q BID KATHARINE Insulin Human Lispro 0 unit 06/19/20 11:30 06/22/20 22:20 Humalog SUB-Q 4 unit ACHS KATHARINE Administration Protocol Ondansetron HCl 4 mg 06/16/20 18:24 Zofran IV Q8H PRN Nausea And Vomiting Sodium Chloride 10 ml 06/16/20 22:00 06/22/20 22:28 Sodium Chloride Flush Syringe 10 Ml IV 10 ml BID KATHARINE Administration Sodium Chloride 10 ml 06/16/20 18:24 06/18/20 05:38 Sodium Chloride Flush Syringe 10 Ml IV 10 ml PRN PRN Administration LINE FLUSH Zinc Sulfate 220 mg 06/18/20 10:00 06/22/20 11:28 Zinc Sulfate PO 220 mg QDAY KATHARINE Administration
--- NOTE | 2020-06-22 15:40 | Progress Note ---
Assessment and Plan - Patient Problems (1) Pneumonia due to COVID-19 virus Current Visit: Yes Status: Acute Plan to address problem: 06/17: COVID-19 PCR positive 06/16 through 06/18 antibiotic therapy, which was received by ID Infectious disease consulted Contact/droplet precautions 06/18: Initiated on remdesivir, zinc, vitamin C, vitamin D, abx dc, methylprednisone changed to dexamathsone Supplemental oxygen as needed Prone to sleep OOB 3 times daily and as needed Pulmonary consult Pulmonary hygiene Anticoagulation per COVID-19 protocol Trend inflammatory markers 07/01 SARs CoV 2 antibody test ordered, consent obtained for transfusion of convalescent plasma if antibody testing is negative Will need to discharge with Eliquis 2.5 twice daily for 30 days (2) Acute hypoxemic respiratory failure Current Visit: Yes Status: Acute Plan to address problem: Patient is on supplemental oxygenation with high flow nasal cannula Wean as tolerated Dexamethasone therapy Pulmonary hygiene (3) Diabetes Current Visit: Yes Status: Chronic Plan to address problem: 06/19 hemoglobin A1c 10.8 SSI, increased to high dose scale Lantus, dose increased on 06/20 to attempt tighter glycemic control, 07/01 dosing increased CC diet Accu-Cheks AC at bedtime May need to discharge with Metformin low-dose Encourage dietary changes and increase physical activity upon discharge as tolerated (4) DVT prophylaxis Current Visit: Yes Status: Acute Plan to address problem: SCDs to bilateral extremities while in bed Heparin subcu while inpt We will need to discharge with Eliquis 2.5mg twice daily for 30 days History Interval history: This is a 39-year-old male with diabetes mellitus who presented to the emergency department on 06/16 with complaints of feeling sick over the past week experiencing a subjective fever, dry cough, S OB, decreased exercise intolerance, malaise, body aches which worsened over the past 2 days prior to presentation after known COVID-19 exposure. EMS was notified and upon arrival found the patient in distress with a pulse oximetry of 80% on room air and plan patient has developed oxygenation via nonrebreather mask. In the emergency department patient was found to have a pulse oximetry of 80% on room air which is consistent with acute hypoxemic respiratory failure and his chest x-ray revealed bilateral pneumonia. Infectious disease and pulmonology were consulted. Patient remains on high flow NC at 80% FiO2. 11/28: COVID-19 PCR positive 06/18:Initiated on remdesivir, zinc, vitamin C, vitamin D, abx dc, methylprednisone changed to dexamathsone 06/20: Remains in high flow nasal cannula, he is complaining of cough and shortness of breath with exertion. With the help of a scaffold erector patient was instructed on proning as much as possible and pulmonary hygiene. Patient remains on high flow nasal cannula at 80% FiO2 on 30 L. Patient is on remdesivir therapy day 08/24. Increased lantus and SSI to high dose for tighter BG control. 06/21: COVID-19 antibody test ordered for possible convalescent plasma transfusion given minimal provement in oxygenation. COVID-19 plasma transfusion consent obtained with the help of the language line. Patient states that he still get shortness of breath with any exertion and is still coughing. Lantus dosing increased for persistent hyperglycemia. Hospitalist Physical - Constitutional Vitals: Temp Pulse Resp BP Pulse Ox 98.0 F 78 20 91/56 95 06/22/20 11:58 06/22/20 11:58 06/22/20 11:58 06/22/20 11:58 06/22/20 11:58 General appearance: Present: no acute distress, mild distress, obese - EENT Eyes: Present: PERRL, EOM intact ENT: hearing intact, clear oral mucosa - Neck Neck: Present: supple, normal ROM - Respiratory Respiratory effort: normal Respiratory: bilateral: diminished - Cardiovascular Rhythm: regular Heart Sounds: Present: S1 & S2. Absent: systolic murmur, diastolic murmur - Extremities Extremities: no ischemia, pulses intact, pulses symmetrical, No edema, normal temperature, normal color, Full ROM Peripheral Pulses: within normal limits - Abdominal General gastrointestinal: soft, non-tender, non-distended, normal bowel sounds - Integumentary Integumentary: Present: clear, warm, dry - Psychiatric Psychiatric: appropriate mood/affect, cooperative - Neurologic Neurologic: CNII-XII intact, no focal deficits, moves all extremities Results - Labs CBC & Chem 7: 06/19/20 05:19 06/22/20 05:12 Labs: Laboratory Last Values WBC 9.8 K/mm3 (4.5-11.0) 06/19/20 05:19 RBC 5.37 M/mm3 (3.65-5.03) H 06/19/20 05:19 Hgb 15.9 gm/dl (11.8-15.2) H 06/19/20 05:19 Hct 46.9 % (35.5-45.6) H 06/19/20 05:19 MCV 87 fl (84-94) 06/19/20 05:19 MCH 30 pg (28-32) 06/19/20 05:19 MCHC 34 % (32-34) 06/19/20 05:19 RDW 12.9 % (13.2-15.2) L 06/19/20 05:19 Plt Count 329 K/mm3 (140-440) 06/19/20 05:19 Lymph % (Auto) 18.2 % (13.4-35.0) 06/19/20 05:19 [place] % (Auto) 9.7 % (0.0-7.3) H 06/19/20 05:19 Eos % (Auto) 0.1 % (0.0-4.3) 06/19/20 05:19 Baso % (Auto) 0.1 % (0.0-1.8) 06/19/20 05:19 Lymph # (Auto) 1.8 K/mm3 (1.2-5.4) 06/19/20 05:19 [place] # (Auto) 0.9 K/mm3 (0.0-0.8) H 06/19/20 05:19 Eos # (Auto) 0.0 K/mm3 (0.0-0.4) 06/19/20 05:19 Baso # (Auto) 0.0 K/mm3 (0.0-0.1) 06/19/20 05:19 Seg Neutrophils % 71.9 % (40.0-70.0) H 06/19/20 05:19 Seg Neutrophils # 7.0 K/mm3 (1.8-7.7) 06/19/20 05:19 D-Dimer 837.90 ng/mlDDU (0-234) H 06/21/20 07:13 Sodium 136 mmol/L (137-145) L 06/22/20 05:12 Potassium 3.3 mmol/L (3.6-5.0) L D 06/22/20 05:12 Chloride 100.9 mmol/L (98-107) 12/03/20 05:12 Carbon Dioxide 22 mmol/L (22-30) 06/22/20 05:12 Anion Gap 16 mmol/L 06/22/20 05:12 BUN 22 mg/dL (9-20) H 06/22/20 05:12 Creatinine 0.5 mg/dL (0.8-1.3) L 06/22/20 05:12 Estimated GFR > 60 ml/min 06/22/20 05:12 BUN/Creatinine Ratio 44 % 06/22/20 05:12 Glucose 256 mg/dL (75-100) H 06/22/20 05:12 POC Glucose 339 mg/dL (70-105) H 06/22/20 13:05 Hemoglobin A1c 10.8 % (4-6) H 06/19/20 16:40 Lactic Acid 1.30 mmol/L (0.7-2.0) 06/16/20 15:21 Calcium 8.7 mg/dL (8.4-10.2) 06/22/20 05:12 Ferritin 2098.0 ng/mL (30.0-300.0) H 06/19/20 16:40 Total Bilirubin 0.40 mg/dL (0.1-1.2) 06/22/20 05:12 AST 42 units/L (5-40) H 06/22/20 05:12 ALT 48 units/L (7-56) 06/22/20 05:12 Alkaline Phosphatase 70 units/L (35-129) 06/22/20 05:12 Lactate Dehydrogenase 231 units/L (91-180) H 06/21/20 07:13 C-Reactive Protein 2.20 mg/dL (0.00-1.30) H 06/21/20 07:13 Total Protein 6.4 g/dL (6.3-8.2) 06/22/20 05:12 Albumin 3.0 g/dL (3.9-5) L 06/22/20 05:12 Albumin/Globulin Ratio 0.9 % 06/22/20 05:12 Procalcitonin 0.46 ng/mL (<0.15) 06/16/20 15:21 Coronavirus (PCR) Positive (Negative) A 06/17/20 10:03 SARS-CoV-2 IgG Ab Reactive (NonReactive) A 06/21/20 13:02 Blood Type O POSITIVE 06/21/20 13:00 Antibody Screen Negative 06/21/20 13:00 Microbiology: Microbiology 06/16/20 15:24 Peripheral/Venous Blood Culture - Final NO GROWTH AFTER 5 DAYS 06/16/20 15:21 Peripheral/Venous Blood Culture - Final NO GROWTH AFTER 5 DAYS Bernal/IV: Voiding Method Urinal IV Catheter Type [Right Hand] Peripheral IV IV Catheter Type [Left INT / Saline Lock Antecubital] Active Medications - Current Medications Current Medications: Generic Name Dose Route Start Last Admin Trade Name Freq PRN Reason Stop Dose Admin Acetaminophen 650 mg 06/16/20 18:24 Tylenol PO Q4H PRN Pain MILD(1-3)/Fever >100.5/COLLAZO Ascorbic Acid 500 mg 06/18/20 10:00 06/22/20 09:20 Vitamin C PO 500 mg QDAY KATHARINE Administration Cholecalciferol 5,000 unit 06/18/20 10:00 06/22/20 11:28 Vitamin D3 PO 5,000 unit DAILY KATHARINE Administration Dexamethasone 6 mg 06/20/20 10:00 06/22/20 09:20 Decadron PO 06/29/20 10:01 6 mg DAILY KATHARINE Administration Dextrose 50 ml 06/19/20 08:36 D50w (25gm) Syringe IV Q30MIN PRN Hypoglycemia Protocol Heparin Sodium (Porcine) 5,000 unit 06/16/20 22:00 06/22/20 09:23 Heparin SUB-Q 5,000 unit Q12HR KATHARINE Administration REMDESIVIR 100 mg/ Sodium 250 mls @ 500 mls/hr 06/19/20 21:00 06/21/20 21:35 Chloride IV 06/22/20 21:29 500 mls/hr Q24HR@2100 KATHARINE Administration Insulin Glargine 16 units 06/22/20 09:00 06/22/20 09:26 Lantus SUB-Q 16 units BID KATHARINE Administration Insulin Human Lispro 0 unit 06/19/20 11:30 06/22/20 13:11 Humalog SUB-Q 8 unit ACHS KATHARINE Administration Protocol Ondansetron HCl 4 mg 06/16/20 18:24 Zofran IV Q8H PRN Nausea And Vomiting Sodium Chloride 10 ml 06/16/20 22:00 06/22/20 09:28 Sodium Chloride Flush Syringe 10 Ml IV 10 ml BID KATHARINE Administration Sodium Chloride 10 ml 06/16/20 18:24 06/18/20 05:38 Sodium Chloride Flush Syringe 10 Ml IV 10 ml PRN PRN Administration LINE FLUSH Sodium Chloride 50 ml 06/18/20 11:15 06/21/20 21:35 Nacl 0.9% IV 06/22/20 21:01 50 ml Q24HR@2100 KATHARINE Administration Zinc Sulfate 220 mg 06/18/20 10:00 06/22/20 11:28 Zinc Sulfate PO 220 mg QDAY KATHARINE Administration
[2020-06-22] MEDS: REMDESIVIR 100 MG in SODIUM CHLORIDE 0.9% 250ML 250 ML IV SCH (20:54)
[2020-06-22] MEDS: SODIUM CHLORIDE 0.9% 50 ML IVPB IV SCH (20:55)
[2020-06-23 06:49] LABS: Blood Urea Nitrogen 19 mg/dL (9-20); Calcium 8.8 mg/dL (8.4-10.2); Hemolysis Index 5
[2020-06-23 06:54] LABS: BUN/Creatinine Ratio 32
[2020-06-23] MEDS ORDERED: SODIUM CHLORIDE 0.9% 250ML 250 ML IV ONE (07:47)
--- NOTE | 2020-06-23 08:31 | XRay Report ---
CHEST 1 VIEW INDICATION / CLINICAL INFORMATION: hypoxia,reeval. COMPARISON: 06/16/2020 FINDINGS: SUPPORT DEVICES: None. HEART / MEDIASTINUM: No significant abnormality. LUNGS / PLEURA: Bilateral airspace disease No pneumothorax. ADDITIONAL FINDINGS: No significant additional findings. IMPRESSION: Bilateral airspace disease unchanged from 06/16/2020 Signer Name: Ashok Diaz MD FACR Signed: 06/23/2020 8:26 AM Workstation Name: [id number]
[2020-06-23] MEDS: HEPARIN 5,000 UNIT/1 ML VIAL SUB-Q SCH ×2 (09:48→23:15)
[2020-06-23] MEDS: INSULIN LISPRO 100 UNIT/ML VIAL 3 mL SUB-Q SCH ×4 (09:49→23:24)
[2020-06-23] MEDS: ZINC SULFATE 220 MG CAP PO SCH (09:50)
[2020-06-23] MEDS: CHOLECALCIFEROL (VIT D3) 5,000 UNIT TAB PO SCH (09:50)
[2020-06-23] MEDS: DEXAMETHASONE 4 MG TAB PO SCH (09:50)
[2020-06-23] MEDS: ASCORBIC ACID 500 MG TAB PO SCH (09:52)
[2020-06-23] MEDS: INSULIN GLARGINE 100 UNITS/ML SUB-Q SCH ×2 (10:38→22:30)
--- NOTE | 2020-06-23 12:23 | Progress Note ---
Assessment and Plan 39 y/o male with acute respiratory failure secondary to COVID 19 pneumonia. 1. Wean FiO2 for sats >88% 2. Follow up antibody testing, not a candidate for Convalescent plasma 3. Continue steroids for 10 days total 4. electrolyte replacement per primary team 5. Proning as much as possible Subjective Date of service: 06/23/20 Principal diagnosis: shortness of breath Interval history: No acute events. No further weaning on HFNC done yet. Objective Vital Signs - 12hr 06/23/20 06/23/20 06/23/20 00:45 01:00 05:18 Temperature 98.3 F Pulse Rate 56 L Respiratory 24 20 Rate Blood Pressure 93/52 O2 Sat by Pulse 99 94 93 Oximetry 06/23/20 05:28 Temperature 97.4 F L Pulse Rate 57 L Respiratory 22 Rate Blood Pressure 96/61 O2 Sat by Pulse 99 Oximetry Constitutional: other (Mild respiratory distress on high flow nasal cannula at 80%) Eyes: non-icteric ENT: oropharynx moist Neck: supple, no lymphadenopathy, no JVD Ascultation: Bilateral: rhonchi Gastrointestinal: normoactive bowel sounds CBC and BMP: 06/19/20 05:19 06/23/20 05:31 ABG, PT/INR, D-dimer: PT/INR, D-dimer D-Dimer 560.69 ng/mlDDU (0-234) H 06/23/20 05:31 Abnormal lab findings: Abnormal Labs 06/16/20 06/16/20 06/16/20 15:21 15:21 15:21 WBC RBC Hgb Hct RDW Lymph % (Auto) [place] % (Auto) [place] # (Auto) Seg Neutrophils % Seg Neutrophils # D-Dimer 349.09 H Sodium Potassium Chloride Carbon Dioxide BUN Creatinine Glucose 291 H POC Glucose Hemoglobin A1c Ferritin 1670.0 H AST Lactate Dehydrogenase 316 H C-Reactive Protein 36.30 H Albumin Coronavirus (PCR) SARS-CoV-2 IgG Ab 06/16/20 06/16/20 06/17/20 15:21 15:21 05:44 WBC 11.6 H RBC 5.52 H 5.21 H Hgb 16.1 H 15.6 H Hct 48.3 H 46.6 H RDW Lymph % (Auto) 10.5 L [place] % (Auto) 7.7 H 11.7 H [place] # (Auto) 0.9 H 1.2 H Seg Neutrophils % 81.6 H Seg Neutrophils # 9.5 H D-Dimer Sodium Potassium Chloride Carbon Dioxide BUN Creatinine 0.5 L Glucose 289 H POC Glucose Hemoglobin A1c Ferritin AST Lactate Dehydrogenase C-Reactive Protein Albumin 3.8 L Coronavirus (PCR) SARS-CoV-2 IgG Ab 06/17/20 06/17/20 06/18/20 05:44 10:03 21:43 WBC RBC Hgb Hct RDW Lymph % (Auto) [place] % (Auto) [place] # (Auto) Seg Neutrophils % Seg Neutrophils # D-Dimer Sodium 136 L Potassium Chloride 97.8 L Carbon Dioxide 20 L BUN 22 H Creatinine Glucose 299 H POC Glucose 386 H Hemoglobin A1c Ferritin AST Lactate Dehydrogenase C-Reactive Protein Albumin Coronavirus (PCR) Positive A SARS-CoV-2 IgG Ab 06/19/20 06/19/20 06/19/20 05:19 05:19 07:52 WBC RBC 5.37 H Hgb 15.9 H Hct 46.9 H RDW 12.9 L Lymph % (Auto) [place] % (Auto) 9.7 H [place] # (Auto) 0.9 H Seg Neutrophils % 71.9 H Seg Neutrophils # D-Dimer Sodium Potassium Chloride Carbon Dioxide 21 L BUN 31 H Creatinine Glucose 353 H POC Glucose 360 H Hemoglobin A1c Ferritin AST Lactate Dehydrogenase C-Reactive Protein Albumin Coronavirus (PCR) SARS-CoV-2 IgG Ab 06/19/20 06/19/20 06/19/20 13:02 16:40 16:40 WBC RBC Hgb Hct RDW Lymph % (Auto) [place] % (Auto) [place] # (Auto) Seg Neutrophils % Seg Neutrophils # D-Dimer 574.02 H Sodium Potassium Chloride Carbon Dioxide BUN Creatinine Glucose POC Glucose 392 H Hemoglobin A1c Ferritin AST Lactate Dehydrogenase 323 H C-Reactive Protein Albumin Coronavirus (PCR) SARS-CoV-2 IgG Ab 06/19/20 06/19/20 06/19/20 16:40 16:40 16:40 WBC RBC Hgb Hct RDW Lymph % (Auto) [place] % (Auto) [place] # (Auto) Seg Neutrophils % Seg Neutrophils # D-Dimer Sodium Potassium Chloride Carbon Dioxide BUN Creatinine Glucose POC Glucose Hemoglobin A1c 10.8 H Ferritin 2098.0 H AST Lactate Dehydrogenase C-Reactive Protein 5.10 H Albumin Coronavirus (PCR) SARS-CoV-2 IgG Ab 11/06/19/20 06/20/20 17:50 23:00 08:12 WBC RBC Hgb Hct RDW Lymph % (Auto) [place] % (Auto) [place] # (Auto) Seg Neutrophils % Seg Neutrophils # D-Dimer Sodium Potassium Chloride Carbon Dioxide BUN Creatinine Glucose POC Glucose 412 H 317 H 286 H Hemoglobin A1c Ferritin AST Lactate Dehydrogenase C-Reactive Protein Albumin Coronavirus (PCR) SARS-CoV-2 IgG Ab 06/20/20 06/20/20 06/20/20 12:41 16:43 22:22 WBC RBC Hgb Hct RDW Lymph % (Auto) [place] % (Auto) [place] # (Auto) Seg Neutrophils % Seg Neutrophils # D-Dimer Sodium Potassium Chloride Carbon Dioxide BUN Creatinine Glucose POC Glucose 374 H 315 H 316 H Hemoglobin A1c Ferritin AST Lactate Dehydrogenase C-Reactive Protein Albumin Coronavirus (PCR) SARS-CoV-2 IgG Ab 06/21/20 06/21/20 06/21/20 07:13 07:13 09:14 WBC RBC Hgb Hct RDW Lymph % (Auto) [place] % (Auto) [place] # (Auto) Seg Neutrophils % Seg Neutrophils # D-Dimer 837.90 H Sodium Potassium Chloride Carbon Dioxide BUN Creatinine Glucose POC Glucose 229 H Hemoglobin A1c Ferritin AST Lactate Dehydrogenase 231 H C-Reactive Protein 2.20 H Albumin Coronavirus (PCR) SARS-CoV-2 IgG Ab 06/21/20 06/21/20 06/21/20 13:02 13:44 19:44 WBC RBC Hgb Hct RDW Lymph % (Auto) [place] % (Auto) [place] # (Auto) Seg Neutrophils % Seg Neutrophils # D-Dimer Sodium Potassium Chloride Carbon Dioxide BUN Creatinine Glucose POC Glucose 416 H 396 H Hemoglobin A1c Ferritin AST Lactate Dehydrogenase C-Reactive Protein Albumin Coronavirus (PCR) SARS-CoV-2 IgG Ab Reactive A 06/21/20 06/22/20 06/22/20 23:09 05:12 07:43 WBC RBC Hgb Hct RDW Lymph % (Auto) [place] % (Auto) [place] # (Auto) Seg Neutrophils % Seg Neutrophils # D-Dimer Sodium 136 L Potassium 3.3 L D Chloride Carbon Dioxide BUN 22 H Creatinine 0.5 L Glucose 256 H POC Glucose 328 H 248 H Hemoglobin A1c Ferritin AST 42 H Lactate Dehydrogenase C-Reactive Protein Albumin 3.0 L Coronavirus (PCR) SARS-CoV-2 IgG Ab 06/22/20 06/22/20 06/22/20 13:05 16:06 21:39 WBC RBC Hgb Hct RDW Lymph % (Auto) [place] % (Auto) [place] # (Auto) Seg Neutrophils % Seg Neutrophils # D-Dimer Sodium Potassium Chloride Carbon Dioxide BUN Creatinine Glucose POC Glucose 339 H 341 H 224 H Hemoglobin A1c Ferritin AST Lactate Dehydrogenase C-Reactive Protein Albumin Coronavirus (PCR) SARS-CoV-2 IgG Ab 06/23/20 06/23/20 06/23/20 05:31 05:31 05:31 WBC RBC Hgb Hct RDW Lymph % (Auto) [place] % (Auto) [place] # (Auto) Seg Neutrophils % Seg Neutrophils # D-Dimer 560.69 H Sodium Potassium Chloride Carbon Dioxide BUN Creatinine 0.6 L Glucose 201 H POC Glucose Hemoglobin A1c Ferritin 1770.0 H AST Lactate Dehydrogenase 189 H C-Reactive Protein Albumin Coronavirus (PCR) SARS-CoV-2 IgG Ab
--- NOTE | 2020-06-23 12:35 | Progress Note ---
Assessment and Plan - Patient Problems (1) Pneumonia due to COVID-19 virus Current Visit: Yes Status: Acute Plan to address problem: 06/17: COVID-19 PCR positive 06/16 through 06/18 antibiotic therapy, which was received by ID Infectious disease consulted Contact/droplet precautions 06/18: Initiated on remdesivir, zinc, vitamin C, vitamin D, abx dc, methylprednisone changed to dexamathsone Supplemental oxygen as needed Prone to sleep OOB 3 times daily and as needed Pulmonary consult Pulmonary hygiene Anticoagulation per COVID-19 protocol Trend inflammatory markers 07/01 SARs CoV 2 antibody test ordered, consent obtained for transfusion of convalescent plasma if antibody testing is negative Will need to discharge with Eliquis 2.5 twice daily for 30 days (2) Acute hypoxemic respiratory failure Current Visit: Yes Status: Acute Plan to address problem: Patient is on supplemental oxygenation with high flow nasal cannula Wean as tolerated Dexamethasone therapy Pulmonary hygiene (3) Diabetes Current Visit: Yes Status: Chronic Plan to address problem: 06/19 hemoglobin A1c 10.8 SSI, increased to high dose scale Lantus, dose increased on 06/20 to attempt tighter glycemic control, 07/01 dosing increased CC diet Accu-Cheks AC at bedtime May need to discharge with Metformin low-dose Encourage dietary changes and increase physical activity upon discharge as tolerated (4) Hyponatremia Current Visit: Yes Status: Resolved Plan to address problem: 06/22 sodium 136 Slight decrease which may be clinically insignificant Trend BMP Monitor neuro status (5) Hypokalemia Current Visit: Yes Status: Resolved Plan to address problem: 06/22 potassium 3.3 Repleted Replete as necessary Trend BMP (6) DVT prophylaxis Current Visit: Yes Status: Acute Plan to address problem: SCDs to bilateral extremities while in bed Heparin subcu while inpt We will need to discharge with Eliquis 2.5mg twice daily for 30 days History Interval history: This is a 39-year-old male with diabetes mellitus who presented to the emergency department on 06/16 with complaints of feeling sick over the past week experiencing a subjective fever, dry cough, S OB, decreased exercise intolerance, malaise, body aches which worsened over the past 2 days prior to presentation after known COVID-19 exposure. EMS was notified and upon arrival found the patient in distress with a pulse oximetry of 80% on room air and plan patient has developed oxygenation via nonrebreather mask. In the emergency department patient was found to have a pulse oximetry of 80% on room air which is consistent with acute hypoxemic respiratory failure and his chest x-ray revealed bilateral pneumonia. Infectious disease and pulmonology were cons ulted. Today on examination patient is on high flow nasal cannula with 100% FiO2 however he states that he feels symptomatically better. Patient is set to complete test remdesivir therapy today. 06/17: COVID-19 PCR positive 06/18:Initiated on remdesivir, zinc, vitamin C, vitamin D, abx dc, methyl prednisone changed to dexamathsone 06/20: Remains in high flow nasal cannula, he is complaining of cough and shortness of breath with exertion. With the help of a rock picker patient was instructed on proning as much as possible and pulmonary hygiene. Patient remains on high flow nasal cannula at 80% FiO2 on 30 L. Patient is on remdesivir therapy day 08/24. Increased lantus and SSI to high dose for tighter BG control. 06/21: COVID-19 antibody test ordered for possible convalescent plasma transfus ion given minimal provement in oxygenation. COVID-19 plasma transfusion consent obtained with the help of the language line. Patient states that he still get shortness of breath with any exertion and is still coughing. Lantus dosing increased for persistent hyperglycemia. Remdesivir therapy day 09/21 06/22: Patient remains on high flow NC at 80% FiO2. Remdesivir therapy day 10/22 Hospitalist Physical - Constitutional Vitals: Temp Pulse Resp BP Pulse Ox 97.4 F L 57 L 22 96/61 99 06/23/20 05:28 06/23/20 05:28 06/23/20 05:28 06/23/20 05:28 06/23/20 05:28 General appearance: Present: no acute distress, mild distress, obese - EENT Eyes: Present: PERRL, EOM intact ENT: hearing intact, clear oral mucosa - Neck Neck: Present: supple, normal ROM - Respiratory Respiratory effort: normal Respiratory: bilateral: diminished - Cardiovascular Rhythm: regular Heart Sounds: Present: S1 & S2. Absent: systolic murmur, diastolic murmur - Extremities Extremities: no ischemia, pulses intact, pulses symmetrical, No edema, normal temperature, normal color, Full ROM Peripheral Pulses: within normal limits - Abdominal General gastrointestinal: soft, non-tender, non-distended, normal bowel sounds - Integumentary Integumentary: Present: clear, warm, dry - Psychiatric Psychiatric: cooperative - Neurologic Neurologic: CNII-XII intact, no focal deficits, moves all extremities Results - Labs CBC & Chem 7: 06/19/20 05:19 06/23/20 05:31 Labs: Laboratory Last Values WBC 9.8 K/mm3 (4.5-11.0) 06/19/20 05:19 RBC 5.37 M/mm3 (3.65-5.03) H 06/19/20 05:19 Hgb 15.9 gm/dl (11.8-15.2) H 06/19/20 05:19 Hct 46.9 % (35.5-45.6) H 06/19/20 05:19 MCV 87 fl (84-94) 06/19/20 05:19 MCH 30 pg (28-32) 06/19/20 05:19 MCHC 34 % (32-34) 06/19/20 05:19 RDW 12.9 % (13.2-15.2) L 06/19/20 05:19 Plt Count 329 K/mm3 (140-440) 06/19/20 05:19 Lymph % (Auto) 18.2 % (13.4-35.0) 06/19/20 05:19 [place] % (Auto) 9.7 % (0.0-7.3) H 06/19/20 05:19 Eos % (Auto) 0.1 % (0.0-4.3) 06/19/20 05:19 Baso % (Auto) 0.1 % (0.0-1.8) 06/19/20 05:19 Lymph # (Auto) 1.8 K/mm3 (1.2-5.4) 06/19/20 05:19 [place] # (Auto) 0.9 K/mm3 (0.0-0.8) H 06/19/20 05:19 Eos # (Auto) 0.0 K/mm3 (0.0-0.4) 06/19/20 05:19 Baso # (Auto) 0.0 K/mm3 (0.0-0.1) 06/19/20 05:19 Seg Neutrophils % 71.9 % (40.0-70.0) H 06/19/20 05:19 Seg Neutrophils # 7.0 K/mm3 (1.8-7.7) 06/19/20 05:19 D-Dimer 560.69 ng/mlDDU (0-234) H 06/23/20 05:31 Sodium 137 mmol/L (137-145) 06/23/20 05:31 Potassium 3.7 mmol/L (3.6-5.0) 06/23/20 05:31 Chloride 101.5 mmol/L (98-107) 06/23/20 05:31 Carbon Dioxide 26 mmol/L (22-30) 06/23/20 05:31 Anion Gap 13 mmol/L 06/23/20 05:31 BUN 19 mg/dL (9-20) 06/23/20 05:31 Creatinine 0.6 mg/dL (0.8-1.3) L 06/23/20 05:31 Estimated GFR > 60 ml/min 06/23/20 05:31 BUN/Creatinine Ratio 32 % 06/23/20 05:31 Glucose 201 mg/dL (75-100) H 06/23/20 05:31 POC Glucose 224 mg/dL (70-105) H 06/22/20 21:39 Hemoglobin A1c 10.8 % (4-6) H 06/19/20 16:40 Lactic Acid 1.30 mmol/L (0.7-2.0) 06/16/20 15:21 Calcium 8.8 mg/dL (8.4-10.2) 06/23/20 05:31 Ferritin 1770.0 ng/mL (30.0-300.0) H 06/23/20 05:31 Total Bilirubin 0.40 mg/dL (0.1-1.2) 06/22/20 05:12 AST 42 units/L (5-40) H 06/22/20 05:12 ALT 48 units/L (7-56) 06/22/20 05:12 Alkaline Phosphatase 70 units/L (35-129) 06/22/20 05:12 Lactate Dehydrogenase 189 units/L (91-180) H 06/23/20 05:31 C-Reactive Protein 1.20 mg/dL (0.00-1.30) 06/23/20 05:31 Total Protein 6.4 g/dL (6.3-8.2) 06/22/20 05:12 Albumin 3.0 g/dL (3.9-5) L 06/22/20 05:12 Albumin/Globulin Ratio 0.9 % 06/22/20 05:12 Procalcitonin 0.46 ng/mL (<0.15) 06/16/20 15:21 Coronavirus (PCR) Positive (Negative) A 06/17/20 10:03 SARS-CoV-2 IgG Ab Reactive (NonReactive) A 06/21/20 13:02 Blood Type O POSITIVE 06/21/20 13:00 Antibody Screen Negative 06/21/20 13:00 Bernal/IV: Voiding Method Urinal IV Catheter Type [Right Hand] Peripheral IV IV Catheter Type [Left INT / Saline Lock Antecubital] Active Medications - Current Medications Current Medications: Generic Name Dose Route Start Last Admin Trade Name Freq PRN Reason Stop Dose Admin Acetaminophen 650 mg 06/16/20 18:24 Tylenol PO Q4H PRN Pain MILD(1-3)/Fever >100.5/COLLAZO Ascorbic Acid 500 mg 06/18/20 10:00 06/23/20 09:52 Vitamin C PO 500 mg QDAY KATHARINE Administration Cholecalciferol 5,000 unit 06/18/20 10:00 06/23/20 09:50 Vitamin D3 PO 5,000 unit DAILY KATHARINE Administration Dexamethasone 6 mg 06/20/20 10:00 06/23/20 09:50 Decadron PO 06/29/20 10:01 6 mg DAILY KATHARINE Administration Dextrose 50 ml 06/19/20 08:36 D50w (25gm) Syringe IV Q30MIN PRN Hypoglycemia Protocol Heparin Sodium (Porcine) 5,000 unit 06/16/20 22:00 06/23/20 09:48 Heparin SUB-Q 5,000 unit Q12HR KATHARINE Administration Insulin Glargine 18 units 06/23/20 10:00 06/23/20 10:38 Lantus SUB-Q 18 units BID KATHARINE Administration Insulin Human Lispro 0 unit 06/19/20 11:30 06/23/20 09:49 Humalog SUB-Q 4 unit ACHS KATHARINE Administration Protocol Ondansetron HCl 4 mg 06/16/20 18:24 Zofran IV Q8H PRN Nausea And Vomiting Sodium Chloride 10 ml 11/27/20 22:00 06/23/20 09:52 Sodium Chloride Flush Syringe 10 Ml IV 10 ml BID KATHARINE Administration Sodium Chloride 10 ml 06/16/20 18:24 06/18/20 05:38 Sodium Chloride Flush Syringe 10 Ml IV 10 ml PRN PRN Administration LINE FLUSH Zinc Sulfate 220 mg 06/18/20 10:00 06/23/20 09:50 Zinc Sulfate PO 220 mg QDAY KATHARINE Administration
--- NOTE | 2020-06-23 13:47 | Event Note ---
Everyday I have been assessing the patient I have been speaking to the family, Shahla, over the phone d/t limited patients limited Croatian as well as updating the patient with the use of the language line. Elizabeth Washington NP
--- NOTE | 2020-06-23 15:49 | Progress Note ---
Assessment and Plan Cultures: Negative A/P: 39-year-old man past medical history diabetes admitted with COVID-19 pneumonia #Severe COVID-19 pneumonia: Patient presented with a week of symptoms, chest x- ray with diffuse bilateral infiltrates #Acute hypoxemic respiratory failure: Likely secondary to COVID-19 infection. Currently on high flow nasal cannula #Diabetes: tight glycemic control for best outcomes. Recs: -Dexamethasone 6 mg IV/PO daily for 10 days -Completed remdesivir -Obtain daily inflammatory markers - ferritin, Ddimer, CRP, LDH -Proning as able -Anticoagulation per primary -Covid antibody positive, not a candidate for CCP. Dr. Guevara taking over tomorrow Thank you for the consult, we will continue to follow. Janneth Kahn MD [facility] ([facility] O: [phone] F: [phone] Subjective Date of service: 06/23/20 Principal diagnosis: shortness of breath Interval history: Afebrile, no acute changes. Currently on high flow nasal cannula 20/90%. Imaging personally reviewed: Chest x-ray: Unchanged bilateral airspace disease. Objective - Exam Narrative Exam: Physical exam deferred due to PPE conservation strategy. Please refer to primary team's note. - Constitutional Vitals: Vital Signs Temp Pulse Resp BP Pulse Ox 98.1 F 73 19 101/65 96 06/23/20 11:57 06/23/20 11:57 06/23/20 11:57 06/23/20 11:57 06/23/20 14:27 Temperature -Last 24 Hours Temperature 98.1 F Temperature 97.4 F Temperature 98.3 F Temperature 98.0 F - Labs CBC & Chem 7: 06/19/20 05:19 06/23/20 05:31 Labs: Abnormal lab results 06/22/20 06/22/20 06/23/20 Range/Units 16:06 21:39 05:31 D-Dimer 560.69 H (0-234) ng/mlDDU Creatinine (0.8-1.3) mg/dL Glucose (75-100) mg/dL POC Glucose 341 H 224 H (70-105) mg/dL Ferritin (30.0-300.0) ng/mL Lactate Dehydrogenase (91-180) units/L 06/23/20 06/23/20 Range/Units 05:31 05:31 D-Dimer (0-234) ng/mlDDU Creatinine 0.6 L (0.8-1.3) mg/dL Glucose 201 H (75-100) mg/dL POC Glucose (70-105) mg/dL Ferritin 1770.0 H (30.0-300.0) ng/mL Lactate Dehydrogenase 189 H (91-180) units/L
[2020-06-24] MEDS ORDERED: SODIUM CHLORIDE 0.9% 250ML 250 ML ONE (05:02)
[2020-06-24] MEDS ORDERED: SODIUM CHLORIDE 0.9% 250ML 250 ML IV ONE (05:18)
--- NOTE | 2020-06-24 08:15 | Progress Note ---
Assessment and Plan 39 y/o male with acute respiratory failure secondary to COVID 19 pneumonia. 1. Wean FiO2 for sats >88% 2. not a candidate for Convalescent plasma 3. Continue steroids for 10 days total 4. electrolyte replacement per primary team 5. Proning as much as possible Subjective Date of service: 06/24/20 Principal diagnosis: shortness of breath Interval history: Now down to 20liters and 80%. Decent sats. Objective Vital Signs - 12hr 06/23/20 06/23/20 06/24/20 20:53 21:09 01:00 Temperature 98.6 F Pulse Rate 68 Respiratory 16 20 Rate Blood Pressure 90/56 O2 Sat by Pulse 99 99 Oximetry 06/24/20 06/24/20 03:45 04:07 Temperature 97.5 F L Pulse Rate 59 L Respiratory 16 Rate Blood Pressure 78/48 O2 Sat by Pulse 98 98 Oximetry Constitutional: other (Mild respiratory distress on high flow nasal cannula at 80%) Eyes: non-icteric ENT: oropharynx moist Neck: supple, no lymphadenopathy, no JVD Ascultation: Bilateral: rhonchi Gastrointestinal: normoactive bowel sounds CBC and BMP: 06/19/20 05:19 06/23/20 05:31 ABG, PT/INR, D-dimer: PT/INR, D-dimer D-Dimer 560.69 ng/mlDDU (0-234) H 06/23/20 05:31 Abnormal lab findings: Abnormal Labs 06/16/20 06/16/20 06/16/20 15:21 15:21 15:21 WBC RBC Hgb Hct RDW Lymph % (Auto) [place] % (Auto) [place] # (Auto) Seg Neutrophils % Seg Neutrophils # D-Dimer 349.09 H Sodium Potassium Chloride Carbon Dioxide BUN Creatinine Glucose 291 H POC Glucose Hemoglobin A1c Ferritin 1670.0 H AST Lactate Dehydrogenase 316 H C-Reactive Protein 36.30 H Albumin Coronavirus (PCR) SARS-CoV-2 IgG Ab 06/16/20 06/16/20 06/17/20 15:21 15:21 05:44 WBC 11.6 H RBC 5.52 H 5.21 H Hgb 16.1 H 15.6 H Hct 48.3 H 46.6 H RDW Lymph % (Auto) 10.5 L [place] % (Auto) 7.7 H 11.7 H [place] # (Auto) 0.9 H 1.2 H Seg Neutrophils % 81.6 H Seg Neutrophils # 9.5 H D-Dimer Sodium Potassium Chloride Carbon Dioxide BUN Creatinine 0.5 L Glucose 289 H POC Glucose Hemoglobin A1c Ferritin AST Lactate Dehydrogenase C-Reactive Protein Albumin 3.8 L Coronavirus (PCR) SARS-CoV-2 IgG Ab 06/17/20 06/17/20 06/18/20 05:44 10:03 21:43 WBC RBC Hgb Hct RDW Lymph % (Auto) [place] % (Auto) [place] # (Auto) Seg Neutrophils % Seg Neutrophils # D-Dimer Sodium 136 L Potassium Chloride 97.8 L Carbon Dioxide 20 L BUN 22 H Creatinine Glucose 299 H POC Glucose 386 H Hemoglobin A1c Ferritin AST Lactate Dehydrogenase C-Reactive Protein Albumin Coronavirus (PCR) Positive A SARS-CoV-2 IgG Ab 06/19/20 06/19/20 06/19/20 05:19 05:19 07:52 WBC RBC 5.37 H Hgb 15.9 H Hct 46.9 H RDW 12.9 L Lymph % (Auto) [place] % (Auto) 9.7 H [place] # (Auto) 0.9 H Seg Neutrophils % 71.9 H Seg Neutrophils # D-Dimer Sodium Potassium Chloride Carbon Dioxide 21 L BUN 31 H Creatinine Glucose 353 H POC Glucose 360 H Hemoglobin A1c Ferritin AST Lactate Dehydrogenase C-Reactive Protein Albumin Coronavirus (PCR) SARS-CoV-2 IgG Ab 06/19/20 06/19/20 06/19/20 13:02 16:40 16:40 WBC RBC Hgb Hct RDW Lymph % (Auto) [place] % (Auto) [place] # (Auto) Seg Neutrophils % Seg Neutrophils # D-Dimer 574.02 H Sodium Potassium Chloride Carbon Dioxide BUN Creatinine Glucose POC Glucose 392 H Hemoglobin A1c Ferritin AST Lactate Dehydrogenase 323 H C-Reactive Protein Albumin Coronavirus (PCR) SARS-CoV-2 IgG Ab 06/19/20 06/19/20 06/19/20 16:40 16:40 16:40 WBC RBC Hgb Hct RDW Lymph % (Auto) [place] % (Auto) [place] # (Auto) Seg Neutrophils % Seg Neutrophils # D-Dimer Sodium Potassium Chloride Carbon Dioxide BUN Creatinine Glucose POC Glucose Hemoglobin A1c 10.8 H Ferritin 2098.0 H AST Lactate Dehydrogenase C-Reactive Protein 5.10 H Albumin Coronavirus (PCR) SARS-CoV-2 IgG Ab 06/19/20 06/19/20 06/20/20 17:50 23:00 08:12 WBC RBC Hgb Hct RDW Lymph % (Auto) [place] % (Auto) [place] # (Auto) Seg Neutrophils % Seg Neutrophils # D-Dimer Sodium Potassium Chloride Carbon Dioxide BUN Creatinine Glucose POC Glucose 412 H 317 H 286 H Hemoglobin A1c Ferritin AST Lactate Dehydrogenase C-Reactive Protein Albumin Coronavirus (PCR) SARS-CoV-2 IgG Ab 06/20/20 06/20/20 06/20/20 12:41 16:43 22:22 WBC RBC Hgb Hct RDW Lymph % (Auto) [place] % (Auto) [place] # (Auto) Seg Neutrophils % Seg Neutrophils # D-Dimer Sodium Potassium Chloride Carbon Dioxide BUN Creatinine Glucose POC Glucose 374 H 315 H 316 H Hemoglobin A1c Ferritin AST Lactate Dehydrogenase C-Reactive Protein Albumin Coronavirus (PCR) SARS-CoV-2 IgG Ab 06/21/20 06/21/20 06/21/20 07:13 07:13 09:14 WBC RBC Hgb Hct RDW Lymph % (Auto) [place] % (Auto) [place] # (Auto) Seg Neutrophils % Seg Neutrophils # D-Dimer 837.90 H Sodium Potassium Chloride Carbon Dioxide BUN Creatinine Glucose POC Glucose 229 H Hemoglobin A1c Ferritin AST Lactate Dehydrogenase 231 H C-Reactive Protein 2.20 H Albumin Coronavirus (PCR) SARS-CoV-2 IgG Ab 06/21/20 06/21/20 06/21/20 13:02 13:44 19:44 WBC RBC Hgb Hct RDW Lymph % (Auto) [place] % (Auto) [place] # (Auto) Seg Neutrophils % Seg Neutrophils # D-Dimer Sodium Potassium Chloride Carbon Dioxide BUN Creatinine Glucose POC Glucose 416 H 396 H Hemoglobin A1c Ferritin AST Lactate Dehydrogenase C-Reactive Protein Albumin Coronavirus (PCR) SARS-CoV-2 IgG Ab Reactive A 06/21/20 06/22/20 06/22/20 23:09 05:12 07:43 WBC RBC Hgb Hct RDW Lymph % (Auto) [place] % (Auto) [place] # (Auto) Seg Neutrophils % Seg Neutrophils # D-Dimer Sodium 136 L Potassium 3.3 L D Chloride Carbon Dioxide BUN 22 H Creatinine 0.5 L Glucose 256 H POC Glucose 328 H 248 H Hemoglobin A1c Ferritin AST 42 H Lactate Dehydrogenase C-Reactive Protein Albumin 3.0 L Coronavirus (PCR) SARS-CoV-2 IgG Ab 12/10/0706/22/20 06/22/20 13:05 16:06 21:39 WBC RBC Hgb Hct RDW Lymph % (Auto) [place] % (Auto) [place] # (Auto) Seg Neutrophils % Seg Neutrophils # D-Dimer Sodium Potassium Chloride Carbon Dioxide BUN Creatinine Glucose POC Glucose 339 H 341 H 224 H Hemoglobin A1c Ferritin AST Lactate Dehydrogenase C-Reactive Protein Albumin Coronavirus (PCR) SARS-CoV-2 IgG Ab 06/23/20 06/23/20 06/23/20 05:31 05:31 05:31 WBC RBC Hgb Hct RDW Lymph % (Auto) [place] % (Auto) [place] # (Auto) Seg Neutrophils % Seg Neutrophils # D-Dimer 560.69 H Sodium Potassium Chloride Carbon Dioxide BUN Creatinine 0.6 L Glucose 201 H POC Glucose Hemoglobin A1c Ferritin 1770.0 H AST Lactate Dehydrogenase 189 H C-Reactive Protein Albumin Coronavirus (PCR) SARS-CoV-2 IgG Ab 06/23/20 06/23/20 18:01 23:06 WBC RBC Hgb Hct RDW Lymph % (Auto) [place] % (Auto) [place] # (Auto) Seg Neutrophils % Seg Neutrophils # D-Dimer Sodium Potassium Chloride Carbon Dioxide BUN Creatinine Glucose POC Glucose 379 H 265 H Hemoglobin A1c Ferritin AST Lactate Dehydrogenase C-Reactive Protein Albumin Coronavirus (PCR) SARS-CoV-2 IgG Ab
[2020-06-24] MEDS: INSULIN LISPRO 100 UNIT/ML VIAL 3 mL SUB-Q SCH ×4 (09:54→22:25)
[2020-06-24] MEDS: DEXAMETHASONE 4 MG TAB PO SCH (09:56)
[2020-06-24] MEDS: HEPARIN 5,000 UNIT/1 ML VIAL SUB-Q SCH ×2 (09:57→22:08)
[2020-06-24] MEDS: INSULIN GLARGINE 100 UNITS/ML SUB-Q SCH ×2 (09:59→22:07)
[2020-06-24] MEDS: ZINC SULFATE 220 MG CAP PO SCH (10:00)
[2020-06-24] MEDS: CHOLECALCIFEROL (VIT D3) 5,000 UNIT TAB PO SCH (10:00)
[2020-06-24] MEDS: ASCORBIC ACID 500 MG TAB PO SCH (10:00)
--- NOTE | 2020-06-24 11:38 | Progress Note ---
Assessment and Plan Assessment and plan: 1) Pneumonia due to COVID-19 virus Current Visit: Yes Status: Acute Plan to address problem: 06/17: COVID-19 PCR positive 06/16 through 06/18 antibiotic therapy, which was received by ID Infectious disease consulted Contact/droplet precautions 06/18: Initiated on remdesivir, zinc, vitamin C, vitamin D, abx dc, methyl prednisone changed to dexamathsone Supplemental oxygen as needed Prone to sleep OOB 3 times daily and as needed Pulmonary consult Pulmonary hygiene Anticoagulation per COVID-19 protocol Trend inflammatory markers 07/01 SARs CoV 2 antibody test ordered, consent obtained for transfusion of con valescent plasma if antibody testing is negative Will need to discharge with Eliquis 2.5 twice daily for 7 days (2) Acute hypoxemic respiratory failure Current Visit: Yes Status: Acute Plan to address problem: Patient is on supplemental oxygenation with high flow nasal cannula Wean as tolerated Dexamethasone therapy Pulmonary hygiene (3) Diabetes Current Visit: Yes Status: Chronic Plan to address problem: 06/19 hemoglobin A1c 10.8 SSI, increased to high dose scale Lantus, dose increased on 06/20 to attempt tighter glycemic control, 07/01 dosing increased CC diet Accu-Cheks AC at bedtime May need to discharge with Metformin low-dose Encourage dietary changes and increase physical activity upon discharge as tolerated (4) Hyponatremia Current Visit: Yes Status: Resolved Plan to address problem: 06/22 sodium 136 Slight decrease which may be clinically insignificant Trend BMP Monitor neuro status (5) Hypokalemia Current Visit: Yes Status: Resolved Plan to address problem: 06/22 potassium 3.3 Repleted Replete as necessary Trend BMP (6) DVT prophylaxis Current Visit: Yes Status: Acute Plan to address problem: SCDs to bilateral extremities while in bed Heparin subcu while inpt We will need to discharge with Eliquis 2.5mg twice daily for 30 days History Interval history: This is a 39-year-old male with diabetes mellitus who presented to the emergency department on 06/16 with complaints of feeling sick over the past week experiencing a subjective fever, dry cough, S OB, decreased exercise intolerance, malaise, body aches which worsened over the past 2 days prior to presentation after known COVID-19 exposure. EMS was notified and upon arrival found the patient in distress with a pulse oximetry of 80% on room air and plan patient has developed oxygenation via nonrebreather mask. In the emergency department patient was found to have a pulse oximetry of 80% on room air which is consistent with acute hypoxemic respiratory failure and his chest x-ray revealed bilateral pneumonia. Infectious disease and pulmonology were consulted. Today on examination patient is on high flow nasal cannula with 100% FiO2 however he states that he feels symptomatically better. Patient is set to complete test remdesivir therapy today. 06/17: COVID-19 PCR positive 06/18:Initiated on remdesivir, zinc, vitamin C, vitamin D, abx dc, methylprednisone changed to dexamathsone 06/20: Remains in high flow nasal cannula, he is complaining of cough and le rtness of breath with exertion. With the help of a data base administrator patient was instructed on proning as much as possible and pulmonary hygiene. Patient remains on high flow nasal cannula at 80% FiO2 on 30 L. Patient is on remdesivir therapy day 08/24. Increased lantus and SSI to high dose for tighter BG control. 06/21: COVID-19 antibody test ordered for possible convalescent plasma transfusion given minimal provement in oxygenation. COVID-19 plasma transfusion consent obtained with the help of the language line. Patient states that he still get shortness of breath with any exertion and is still coughing. Lantus dosing increased for persistent hyperglycemia. Remdesivir therapy day 09/21 06/22: Patient remains on high flow NC at 80% FiO2. Remdesivir therapy day 10/22 06/24. Remains on high flow at 80%. No complaints. ID and pulm following Hospitalist Physical - Constitutional Vitals: Temp Pulse Resp BP Pulse Ox 97.5 F L 59 L 16 78/48 98 06/24/20 03:45 06/24/20 03:45 06/24/20 03:45 06/24/20 03:45 06/24/20 04:07 General appearance: Present: no acute distress, mild distress, obese Results - Labs CBC & Chem 7: 06/19/20 05:19 06/23/20 05:31 Labs: Laboratory Last Values WBC 9.8 K/mm3 (4.5-11.0) 06/19/20 05:19 RBC 5.37 M/mm3 (3.65-5.03) H 06/19/20 05:19 Hgb 15.9 gm/dl (11.8-15.2) H 06/19/20 05:19 Hct 46.9 % (35.5-45.6) H 06/19/20 05:19 MCV 87 fl (84-94) 06/19/20 05:19 MCH 30 pg (28-32) 06/19/20 05:19 MCHC 34 % (32-34) 06/19/20 05:19 RDW 12.9 % (13.2-15.2) L 06/19/20 05:19 Plt Count 329 K/mm3 (140-440) 06/19/20 05:19 Lymph % (Auto) 18.2 % (13.4-35.0) 06/19/20 05:19 [place] % (Auto) 9.7 % (0.0-7.3) H 06/19/20 05:19 Eos % (Auto) 0.1 % (0.0-4.3) 06/19/20 05:19 Baso % (Auto) 0.1 % (0.0-1.8) 06/19/20 05:19 Lymph # (Auto) 1.8 K/mm3 (1.2-5.4) 06/19/20 05:19 [place] # (Auto) 0.9 K/mm3 (0.0-0.8) H 06/19/20 05:19 Eos # (Auto) 0.0 K/mm3 (0.0-0.4) 06/19/20 05:19 Baso # (Auto) 0.0 K/mm3 (0.0-0.1) 06/19/20 05:19 Seg Neutrophils % 71.9 % (40.0-70.0) H 06/19/20 05:19 Seg Neutrophils # 7.0 K/mm3 (1.8-7.7) 06/19/20 05:19 D-Dimer 560.69 ng/mlDDU (0-234) H 06/23/20 05:31 Sodium 137 mmol/L (137-145) 06/23/20 05:31 Potassium 3.7 mmol/L (3.6-5.0) 06/23/20 05:31 Chloride 101.5 mmol/L (98-107) 06/23/20 05:31 Carbon Dioxide 26 mmol/L (22-30) 06/23/20 05:31 Anion Gap 13 mmol/L 06/23/20 05:31 BUN 19 mg/dL (9-20) 06/23/20 05:31 Creatinine 0.6 mg/dL (0.8-1.3) L 06/23/20 05:31 Estimated GFR > 60 ml/min 06/23/20 05:31 BUN/Creatinine Ratio 32 % 06/23/20 05:31 Glucose 201 mg/dL (75-100) H 06/23/20 05:31 POC Glucose 145 mg/dL (70-105) H 06/24/20 08:18 Hemoglobin A1c 10.8 % (4-6) H 06/19/20 16:40 Lactic Acid 1.30 mmol/L (0.7-2.0) 06/16/20 15:21 Calcium 8.8 mg/dL (8.4-10.2) 06/23/20 05:31 Ferritin 1770.0 ng/mL (30.0-300.0) H 06/23/20 05:31 Total Bilirubin 0.40 mg/dL (0.1-1.2) 06/22/20 05:12 AST 42 units/L (5-40) H 06/22/20 05:12 ALT 48 units/L (7-56) 06/22/20 05:12 Alkaline Phosphatase 70 units/L (35-129) 06/22/20 05:12 Lactate Dehydrogenase 189 units/L (91-180) H 06/23/20 05:31 C-Reactive Protein 1.20 mg/dL (0.00-1.30) 06/23/20 05:31 Total Protein 6.4 g/dL (6.3-8.2) 06/22/20 05:12 Albumin 3.0 g/dL (3.9-5) L 06/22/20 05:12 Albumin/Globulin Ratio 0.9 % 06/22/20 05:12 Procalcitonin 0.46 ng/mL (<0.15) 06/16/20 15:21 Coronavirus (PCR) Positive (Negative) A 06/17/20 10:03 SARS-CoV-2 IgG Ab Reactive (NonReactive) A 06/21/20 13:02 Blood Type O POSITIVE 06/21/20 13:00 Antibody Screen Negative 12/02/20 13:00 Bernal/IV: Voiding Method Toilet IV Catheter Type [Right Hand] Peripheral IV IV Catheter Type [Left INT / Saline Lock Antecubital] Active Medications - Current Medications Current Medications: Generic Name Dose Route Start Last Admin Trade Name Freq PRN Reason Stop Dose Admin Acetaminophen 650 mg 06/16/20 18:24 Tylenol PO Q4H PRN Pain MILD(1-3)/Fever >100.5/COLLAZO Ascorbic Acid 500 mg 06/18/20 10:00 06/24/20 10:00 Vitamin C PO 500 mg QDAY KATHARINE Administration Cholecalciferol 5,000 unit 06/18/20 10:00 06/24/20 10:00 Vitamin D3 PO 5,000 unit DAILY KATHARINE Administration Dexamethasone 6 mg 06/20/20 10:00 06/24/20 09:56 Decadron PO 06/29/20 10:01 6 mg DAILY KATHARINE Administration Dextrose 50 ml 06/19/20 08:36 D50w (25gm) Syringe IV Q30MIN PRN Hypoglycemia Protocol Heparin Sodium (Porcine) 5,000 unit 06/16/20 22:00 06/24/20 09:57 Heparin SUB-Q 5,000 unit Q12HR KATHARINE Administration Insulin Glargine 18 units 06/23/20 10:00 06/24/20 09:59 Lantus SUB-Q 18 units BID KATHARINE Administration Insulin Human Lispro 0 unit 06/19/20 11:30 06/24/20 09:54 Humalog SUB-Q Not Given ACHS KATHARINE Protocol Ondansetron HCl 4 mg 06/16/20 18:24 Zofran IV Q8H PRN Nausea And Vomiting Sodium Chloride 10 ml 06/16/20 22:00 06/24/20 09:57 Sodium Chloride Flush Syringe 10 Ml IV 10 ml BID KATHARINE Administration Sodium Chloride 10 ml 06/16/20 18:24 06/18/20 05:38 Sodium Chloride Flush Syringe 10 Ml IV 10 ml PRN PRN Administration LINE FLUSH Zinc Sulfate 220 mg 06/18/20 10:00 06/24/20 10:00 Zinc Sulfate PO 220 mg QDAY KATHARINE Administration Nutrition/Malnutrition Assess - Dietary Evaluation Nutrition/Malnutrition Findings: Nutrition Notes Start: 06/23/20 12:57 Freq: Status: Active Protocol: Document 06/23/20 12:57 AT (Rec: 06/23/20 13:02 AT [id number]) Co-Sign 06/23/20 12:57 LM Nutrition Notes Need for Assessment generated from: LOS Initial or Follow up Brief Note Other Pertinent Diagnosis Pneu d/t COVID-19(+), hyponatremia, hypokalemia Current Diet Consistent CHO Labs/Tests BG 201 A1C 10.8 Pertinent Medications Vitamin C Vitamin D3 Decadron Lantus Humalog Zinc Sulfate Subjective/Other Information Screen for LOS. Per chart, pt is consuming 100% of meals. Could not reach pt by phone. Per nurse, pt ate 100% of meals today. Nutrition Intervention Follow-Up By: 06/26/20 Additional Comments F/U for diet education needs
[2020-06-25 06:55] LABS: Basophils # (Auto) 0.1 K/mm3 (0.0-0.1); Basophils % (Auto) 0.7 % (0.0-1.8); Eosinophils # (Auto) 0.1 K/mm3 (0.0-0.4); Eosinophils % (Auto) 0.7 % (0.0-4.3); Hematocrit 46.6 % (35.5-45.6); Lymphocytes # (Auto) 2.3 K/mm3 (1.2-5.4); Lymphocytes % (Auto) 29.3 % (13.4-35.0); Mean Corpuscular HGB Conc 34 % (32-34); Mean Corpuscular Volume 85 fl (84-94); Monocytes # (Auto) 0.6 K/mm3 (0.0-0.8); Monocytes % (Auto) 8.1 % (0.0-7.3); Red Blood Count 5.47 M/mm3 (3.65-5.03); Red Cell Distribution Width 12.8 % (13.2-15.2)
[2020-06-25 06:56] LABS: Platelet Count 177 K/mm3 (140-440)
[2020-06-25 07:26] LABS: Alanine Aminotransferase 84 units/L (7-56); Albumin 3.2 g/dL (3.9-5); BUN/Creatinine Ratio 35; Blood Urea Nitrogen 14 mg/dL (9-20); Calcium 9.1 mg/dL (8.4-10.2); Hemolysis Index 12
[2020-06-25] MEDS ORDERED: POTASSIUM CHLORIDE ER 20 MEQ TAB PO ONE (07:58)
--- NOTE | 2020-06-25 09:09 | Progress Note ---
Assessment and Plan 39 y/o male with acute respiratory failure secondary to COVID 19 pneumonia. 1. Wean FiO2 for sats >88% 2. not a candidate for Convalescent plasma 3. Continue steroids for 10 days total 4. electrolyte replacement per primary team 5. Proning as much as possible Subjective Date of service: 06/25/20 Principal diagnosis: shortness of breath Interval history: Down to 70% with good sats. Objective Vital Signs - 12hr 06/24/20 06/25/20 06/25/20 21:25 01:00 03:05 Temperature Pulse Rate Respiratory 20 Rate Blood Pressure O2 Sat by Pulse 99 100 Oximetry 06/25/20 04:41 Temperature 97.6 F Pulse Rate 62 Respiratory 16 Rate Blood Pressure 92/60 O2 Sat by Pulse 98 Oximetry Constitutional: other (Mild respiratory distress on high flow nasal cannula at 80%) Eyes: non-icteric ENT: oropharynx moist Neck: supple, no lymphadenopathy, no JVD Ascultation: Bilateral: rhonchi Gastrointestinal: normoactive bowel sounds CBC and BMP: 06/25/20 05:09 06/25/20 05:09 ABG, PT/INR, D-dimer: PT/INR, D-dimer D-Dimer 383.39 ng/mlDDU (0-234) H 06/25/20 05:09 Abnormal lab findings: Abnormal Labs 06/16/20 06/16/20 06/16/20 15:21 15:21 15:21 WBC RBC Hgb Hct RDW Lymph % (Auto) [place] % (Auto) [place] # (Auto) Seg Neutrophils % Seg Neutrophils # D-Dimer 349.09 H Sodium Potassium Chloride Carbon Dioxide BUN Creatinine Glucose 291 H POC Glucose Hemoglobin A1c Ferritin 1670.0 H AST ALT Lactate Dehydrogenase 316 H C-Reactive Protein 36.30 H Albumin Coronavirus (PCR) SARS-CoV-2 IgG Ab 06/16/20 06/16/20 06/17/20 15:21 15:21 05:44 WBC 11.6 H RBC 5.52 H 5.21 H Hgb 16.1 H 15.6 H Hct 48.3 H 46.6 H RDW Lymph % (Auto) 10.5 L [place] % (Auto) 7.7 H 11.7 H [place] # (Auto) 0.9 H 1.2 H Seg Neutrophils % 81.6 H Seg Neutrophils # 9.5 H D-Dimer Sodium Potassium Chloride Carbon Dioxide BUN Creatinine 0.5 L Glucose 289 H POC Glucose Hemoglobin A1c Ferritin AST ALT Lactate Dehydrogenase C-Reactive Protein Albumin 3.8 L Coronavirus (PCR) SARS-CoV-2 IgG Ab 06/17/20 06/17/20 06/18/20 05:44 10:03 21:43 WBC RBC Hgb Hct RDW Lymph % (Auto) [place] % (Auto) [place] # (Auto) Seg Neutrophils % Seg Neutrophils # D-Dimer Sodium 136 L Potassium Chloride 97.8 L Carbon Dioxide 20 L BUN 22 H Creatinine Glucose 299 H POC Glucose 386 H Hemoglobin A1c Ferritin AST ALT Lactate Dehydrogenase C-Reactive Protein Albumin Coronavirus (PCR) Positive A SARS-CoV-2 IgG Ab 06/19/20 06/19/20 06/19/20 05:19 05:19 07:52 WBC RBC 5.37 H Hgb 15.9 H Hct 46.9 H RDW 12.9 L Lymph % (Auto) [place] % (Auto) 9.7 H [place] # (Auto) 0.9 H Seg Neutrophils % 71.9 H Seg Neutrophils # D-Dimer Sodium Potassium Chloride Carbon Dioxide 21 L BUN 31 H Creatinine Glucose 353 H POC Glucose 360 H Hemoglobin A1c Ferritin AST ALT Lactate Dehydrogenase C-Reactive Protein Albumin Coronavirus (PCR) SARS-CoV-2 IgG Ab 06/19/20 06/19/20 06/19/20 13:02 16:40 16:40 WBC RBC Hgb Hct RDW Lymph % (Auto) [place] % (Auto) [place] # (Auto) Seg Neutrophils % Seg Neutrophils # D-Dimer 574.02 H Sodium Potassium Chloride Carbon Dioxide BUN Creatinine Glucose POC Glucose 392 H Hemoglobin A1c Ferritin AST ALT Lactate Dehydrogenase 323 H C-Reactive Protein Albumin Coronavirus (PCR) SARS-CoV-2 IgG Ab 06/19/20 06/19/20 06/19/20 16:40 16:40 16:40 WBC RBC Hgb Hct RDW Lymph % (Auto) [place] % (Auto) [place] # (Auto) Seg Neutrophils % Seg Neutrophils # D-Dimer Sodium Potassium Chloride Carbon Dioxide BUN Creatinine Glucose POC Glucose Hemoglobin A1c 10.8 H Ferritin 2098.0 H AST ALT Lactate Dehydrogenase C-Reactive Protein 5.10 H Albumin Coronavirus (PCR) SARS-CoV-2 IgG Ab 06/19/20 06/19/20 06/20/20 17:50 23:00 08:12 WBC RBC Hgb Hct RDW Lymph % (Auto) [place] % (Auto) [place] # (Auto) Seg Neutrophils % Seg Neutrophils # D-Dimer Sodium Potassium Chloride Carbon Dioxide BUN Creatinine Glucose POC Glucose 412 H 317 H 286 H Hemoglobin A1c Ferritin AST ALT Lactate Dehydrogenase C-Reactive Protein Albumin Coronavirus (PCR) SARS-CoV-2 IgG Ab 06/20/20 06/20/20 06/20/20 12:41 16:43 22:22 WBC RBC Hgb Hct RDW Lymph % (Auto) [place] % (Auto) [place] # (Auto) Seg Neutrophils % Seg Neutrophils # D-Dimer Sodium Potassium Chloride Carbon Dioxide BUN Creatinine Glucose POC Glucose 374 H 315 H 316 H Hemoglobin A1c Ferritin AST ALT Lactate Dehydrogenase C-Reactive Protein Albumin Coronavirus (PCR) SARS-CoV-2 IgG Ab 06/21/20 06/21/20 06/21/20 07:13 07:13 09:14 WBC RBC Hgb Hct RDW Lymph % (Auto) [place] % (Auto) [place] # (Auto) Seg Neutrophils % Seg Neutrophils # D-Dimer 837.90 H Sodium Potassium Chloride Carbon Dioxide BUN Creatinine Glucose POC Glucose 229 H Hemoglobin A1c Ferritin AST ALT Lactate Dehydrogenase 231 H C-Reactive Protein 2.20 H Albumin Coronavirus (PCR) SARS-CoV-2 IgG Ab 06/21/20 06/21/20 06/21/20 13:02 13:44 19:44 WBC RBC Hgb Hct RDW Lymph % (Auto) [place] % (Auto) [place] # (Auto) Seg Neutrophils % Seg Neutrophils # D-Dimer Sodium Potassium Chloride Carbon Dioxide BUN Creatinine Glucose POC Glucose 416 H 396 H Hemoglobin A1c Ferritin AST ALT Lactate Dehydrogenase C-Reactive Protein Albumin Coronavirus (PCR) SARS-CoV-2 IgG Ab Reactive A 06/21/20 06/22/20 06/22/20 23:09 05:12 07:43 WBC RBC Hgb Hct RDW Lymph % (Auto) [place] % (Auto) [place] # (Auto) Seg Neutrophils % Seg Neutrophils # D-Dimer Sodium 136 L Potassium 3.3 L D Chloride Carbon Dioxide BUN 22 H Creatinine 0.5 L Glucose 256 H POC Glucose 328 H 248 H Hemoglobin A1c Ferritin AST 42 H ALT Lactate Dehydrogenase C-Reactive Protein Albumin 3.0 L Coronavirus (PCR) SARS-CoV-2 IgG Ab 06/22/20 06/22/20 06/22/20 13:05 16:06 21:39 WBC RBC Hgb Hct RDW Lymph % (Auto) [place] % (Auto) [place] # (Auto) Seg Neutrophils % Seg Neutrophils # D-Dimer Sodium Potassium Chloride Carbon Dioxide BUN Creatinine Glucose POC Glucose 339 H 341 H 224 H Hemoglobin A1c Ferritin AST ALT Lactate Dehydrogenase C-Reactive Protein Albumin Coronavirus (PCR) SARS-CoV-2 IgG Ab 06/23/20 06/23/20 06/23/20 05:31 05:31 05:31 WBC RBC Hgb Hct RDW Lymph % (Auto) [place] % (Auto) [place] # (Auto) Seg Neutrophils % Seg Neutrophils # D-Dimer 560.69 H Sodium Potassium Chloride Carbon Dioxide BUN Creatinine 0.6 L Glucose 201 H POC Glucose Hemoglobin A1c Ferritin 1770.0 H AST ALT Lactate Dehydrogenase 189 H C-Reactive Protein Albumin Coronavirus (PCR) SARS-CoV-2 IgG Ab 06/23/20 06/23/20 06/24/20 18:01 23:06 08:18 WBC RBC Hgb Hct RDW Lymph % (Auto) [place] % (Auto) [place] # (Auto) Seg Neutrophils % Seg Neutrophils # D-Dimer Sodium Potassium Chloride Carbon Dioxide BUN Creatinine Glucose POC Glucose 379 H 265 H 145 H Hemoglobin A1c Ferritin AST ALT Lactate Dehydrogenase C-Reactive Protein Albumin Coronavirus (PCR) SARS-CoV-2 IgG Ab 06/24/20 06/24/20 06/24/20 11:43 16:09 22:35 WBC RBC Hgb Hct RDW Lymph % (Auto) [place] % (Auto) [place] # (Auto) Seg Neutrophils % Seg Neutrophils # D-Dimer Sodium Potassium Chloride Carbon Dioxide BUN Creatinine Glucose POC Glucose 330 H 349 H 274 H Hemoglobin A1c Ferritin AST ALT Lactate Dehydrogenase C-Reactive Protein Albumin Coronavirus (PCR) SARS-CoV-2 IgG Ab 06/25/20 06/25/20 06/25/20 05:09 05:09 05:09 WBC RBC Hgb Hct RDW Lymph % (Auto) [place] % (Auto) [place] # (Auto) Seg Neutrophils % Seg Neutrophils # D-Dimer 383.39 H Sodium Potassium 3.4 L Chloride Carbon Dioxide 21 L BUN Creatinine 0.4 L Glucose 170 H POC Glucose Hemoglobin A1c Ferritin 1844.0 H AST ALT 84 H Lactate Dehydrogenase 196 H C-Reactive Protein Albumin 3.2 L Coronavirus (PCR) SARS-CoV-2 IgG Ab 06/25/20 06/25/20 05:09 07:39 WBC RBC 5.47 H Hgb 16.0 H Hct 46.6 H RDW 12.8 L Lymph % (Auto) [place] % (Auto) 8.1 H Casey # (Auto) Seg Neutrophils % Seg Neutrophils # D-Dimer Sodium Potassium Chloride Carbon Dioxide BUN Creatinine Glucose POC Glucose 182 H Hemoglobin A1c Ferritin AST ALT Lactate Dehydrogenase C-Reactive Protein Albumin Coronavirus (PCR) SARS-CoV-2 IgG Ab
[2020-06-25] MEDS: HEPARIN 5,000 UNIT/1 ML VIAL SUB-Q SCH ×2 (09:59→21:20)
[2020-06-25] MEDS: ZINC SULFATE 220 MG CAP PO SCH (09:59)
[2020-06-25] MEDS: CHOLECALCIFEROL (VIT D3) 5,000 UNIT TAB PO SCH (09:59)
[2020-06-25] MEDS: INSULIN GLARGINE 100 UNITS/ML SUB-Q SCH ×2 (09:59→21:19)
[2020-06-25] MEDS: ASCORBIC ACID 500 MG TAB PO SCH (09:59)
[2020-06-25] MEDS: DEXAMETHASONE 4 MG TAB PO SCH (10:00)
[2020-06-25] MEDS: INSULIN LISPRO 100 UNIT/ML VIAL 3 mL SUB-Q SCH ×4 (10:00→21:21)
--- NOTE | 2020-06-25 12:41 | Progress Note ---
Assessment and Plan Assessment and plan: 1) Pneumonia due to COVID-19 virus Current Visit: Yes Status: Acute Plan to address problem: 06/17: COVID-19 PCR positive 06/16 through 06/18 antibiotic therapy, which was received by ID Infectious disease consulted Contact/droplet precautions 06/18: Initiated on remdesivir, zinc, vitamin C, vitamin D, abx dc, methyl prednisone changed to dexamathsone Supplemental oxygen as needed Prone to sleep OOB 3 times daily and as needed Pulmonary consult Pulmonary hygiene Anticoagulation per COVID-19 protocol Trend inflammatory markers 07/01 SARs CoV 2 antibody test ordered, consent obtained for transfusion of con valescent plasma if antibody testing is negative Will need to discharge with Eliquis 2.5 twice daily for 7 days (2) Acute hypoxemic respiratory failure Current Visit: Yes Status: Acute Plan to address problem: Patient is on supplemental oxygenation with high flow nasal cannula-70% Wean as tolerated Dexamethasone therapy Pulmonary hygiene (3) Diabetes Current Visit: Yes Status: Chronic Plan to address problem: 06/19 hemoglobin A1c 10.8 SSI, increased to high dose scale Lantus, dose increased on 06/20 to attempt tighter glycemic control, 07/01 dosing increased CC diet Accu-Cheks AC at bedtime May need to discharge with Metformin low-dose Encourage dietary changes and increase physical activity upon discharge as tolerated (4) Hyponatremia Current Visit: Yes Status: Resolved Plan to address problem: 06/22 sodium 136 Slight decrease which may be clinically insignificant Trend BMP Monitor neuro status (5) Hypokalemia Current Visit: Yes Status: Resolved Plan to address problem: 06/22 potassium 3.3 Repleted Replete as necessary Trend BMP (6) DVT prophylaxis Current Visit: Yes Status: Acute Plan to address problem: SCDs to bilateral extremities while in bed Heparin subcu while inpt We will need to discharge with Eliquis 2.5mg twice daily for 30 days History Interval history: This is a 39-year-old male with diabetes mellitus who presented to the emergency department on 06/16 with complaints of feeling sick over the past week experiencing a subjective fever, dry cough, S OB, decreased exercise intolerance, malaise, body aches which worsened over the past 2 days prior to presentation after known COVID-19 exposure. EMS was notified and upon arrival found the patient in distress with a pulse oximetry of 80% on room air and plan patient has developed oxygenation via nonrebreather mask. In the emergency department patient was found to have a pulse oximetry of 80% on room air which is consistent with acute hypoxemic respiratory failure and his chest x-ray revealed bilateral pneumonia. Infectious disease and pulmonology were consulted. Today on examination patient is on high flow nasal cannula with 100% FiO2 however he states that he feels symptomatically better. Patient is set to complete test remdesivir therapy today. 06/17: COVID-19 PCR positive 06/18:Initiated on remdesivir, zinc, vitamin C, vitamin D, abx dc, methylprednis one changed to dexamathsone 06/20: Remains in high flow nasal cannula, he is complaining of cough and shortness of breath with exertion. With the help of a gas derrick operator patient was instructed on proning as much as possible and pulmonary hygiene. Patient remains on high flow nasal cannula at 80% FiO2 on 30 L. Patient is on remdesivir therapy day 08/24. Increased lantus and SSI to high dose for tighter BG control. 06/21: COVID-19 antibody test ordered for possible convalescent plasma transfusion given minimal provement in oxygenation. COVID-19 plasma transfusion consent obtained with the help of the language line. Patient states that he still get shortness of breath with any exertion and is still coughing. Lantus dosing increased for persistent hyperglycemia. Remdesivir therapy day 09/21 06/22: Patient remains on high flow NC at 80% FiO2. Remdesivir therapy day 10/22 06/24. Remains on high flow at 80%. No complaints. ID and pulm following 06/25. On 70% with sats >94%. No complaints. Hospitalist Physical - Physical exam Narrative exam: VITAL SIGNS: Reviewed. GENERAL: Awake HEAD: No signs of head trauma. EYES: Pupils are equal. Extraocular motions intact. MOUTH: Oropharynx is normal. NECK: No adenopathy, no JVD. CHEST: Chest with diminished breath sounds bilaterally. No wheezes, rales, or rhonchi. CARDIAC: normal S1 and S2, without murmurs, gallops, or rubs. ABDOMEN: Soft, non tender and non distended. No rebound or guarding, and no masses palpated. Bowel Sounds normal. MUSCULOSKELETAL: No edema NEUROLOGIC EXAM: Alert and oriented x3. No focal neurologic deficits SKIN: No obvious lesions - Constitutional Vitals: Temp Pulse Resp BP Pulse Ox 97.5 F L 66 18 92/57 97 06/25/20 12:04 06/25/20 12:04 06/25/20 12:04 06/25/20 12:21 06/25/20 12:04 - Respiratory Respiratory: bilateral: CTA Results - Labs CBC & Chem 7: 06/25/20 05:09 06/25/20 05:09 Labs: Laboratory Last Values WBC 7.9 K/mm3 (4.5-11.0) 06/25/20 05:09 RBC 5.47 M/mm3 (3.65-5.03) H 06/25/20 05:09 Hgb 16.0 gm/dl (11.8-15.2) H 06/25/20 05:09 Hct 46.6 % (35.5-45.6) H 06/25/20 05:09 MCV 85 fl (84-94) 06/25/20 05:09 MCH 29 pg (28-32) 06/25/20 05:09 MCHC 34 % (32-34) 06/25/20 05:09 RDW 12.8 % (13.2-15.2) L 06/25/20 05:09 Plt Count 177 K/mm3 (140-440) 06/25/20 05:09 Lymph % (Auto) 29.3 % (13.4-35.0) 06/25/20 05:09 [place] % (Auto) 8.1 % (0.0-7.3) H 06/25/20 05:09 Eos % (Auto) 0.7 % (0.0-4.3) 06/25/20 05:09 Baso % (Auto) 0.7 % (0.0-1.8) 06/25/20 05:09 Lymph # (Auto) 2.3 K/mm3 (1.2-5.4) 06/25/20 05:09 [place] # (Auto) 0.6 K/mm3 (0.0-0.8) 06/25/20 05:09 Eos # (Auto) 0.1 K/mm3 (0.0-0.4) 06/25/20 05:09 Baso # (Auto) 0.1 K/mm3 (0.0-0.1) 06/25/20 05:09 Seg Neutrophils % 61.2 % (40.0-70.0) 06/25/20 05:09 Seg Neutrophils # 4.8 K/mm3 (1.8-7.7) 06/25/20 05:09 D-Dimer 383.39 ng/mlDDU (0-234) H 06/25/20 05:09 Sodium 138 mmol/L (137-145) 06/25/20 05:09 Potassium 3.4 mmol/L (3.6-5.0) L 06/25/20 05:09 Chloride 102.4 mmol/L (98-107) 06/25/20 05:09 Carbon Dioxide 21 mmol/L (22-30) L 06/25/20 05:09 Anion Gap 18 mmol/L 06/25/20 05:09 BUN 14 mg/dL (9-20) 06/25/20 05:09 Creatinine 0.4 mg/dL (0.8-1.3) L 06/25/20 05:09 Estimated GFR > 60 ml/min 06/25/20 05:09 BUN/Creatinine Ratio 35 % 06/25/20 05:09 Glucose 170 mg/dL (75-100) H 06/25/20 05:09 POC Glucose 272 mg/dL (70-105) H 06/25/20 11:01 Hemoglobin A1c 10.8 % (4-6) H 06/19/20 16:40 Lactic Acid 1.30 mmol/L (0.7-2.0) 06/16/20 15:21 Calcium 9.1 mg/dL (8.4-10.2) 06/25/20 05:09 Ferritin 1844.0 ng/mL (30.0-300.0) H 06/25/20 05:09 Total Bilirubin 0.50 mg/dL (0.1-1.2) 06/25/20 05:09 AST 30 units/L (5-40) 06/25/20 05:09 ALT 84 units/L (7-56) H 06/25/20 05:09 Alkaline Phosphatase 66 units/L (35-129) 06/25/20 05:09 Lactate Dehydrogenase 196 units/L (91-180) H 06/25/20 05:09 C-Reactive Protein 0.70 mg/dL (0.00-1.30) 06/25/20 05:09 Total Protein 6.3 g/dL (6.3-8.2) 06/25/20 05:09 Albumin 3.2 g/dL (3.9-5) L 06/25/20 05:09 Albumin/Globulin Ratio 1.0 % 06/25/20 05:09 Procalcitonin 0.46 ng/mL (<0.15) 06/16/20 15:21 Coronavirus (PCR) Positive (Negative) A 06/17/20 10:03 SARS-CoV-2 IgG Ab Reactive (NonReactive) A 06/21/20 13:02 Blood Type O POSITIVE 06/21/20 13:00 Antibody Screen Negative 06/21/20 13:00 Bernal/IV: Voiding Method Toilet IV Catheter Type [Right Hand] Peripheral IV IV Catheter Type [Left INT / Saline Lock Antecubital] Active Medications - Current Medications Current Medications: Generic Name Dose Route Start Last Admin Trade Name Freq PRN Reason Stop Dose Admin Acetaminophen 650 mg 06/16/20 18:24 Tylenol PO Q4H PRN Pain MILD(1-3)/Fever >100.5/COLLAZO Ascorbic Acid 500 mg 06/18/20 10:00 06/25/20 09:59 Vitamin C PO 500 mg QDAY KATHARINE Administration Cholecalciferol 5,000 unit 06/18/20 10:00 06/25/20 09:59 Vitamin D3 PO 5,000 unit DAILY KATHARINE Administration Dexamethasone 6 mg 06/20/20 10:00 06/25/20 10:00 Decadron PO 06/29/20 10:01 6 mg DAILY KATHARINE Administration Dextrose 50 ml 06/19/20 08:36 D50w (25gm) Syringe IV Q30MIN PRN Hypoglycemia Protocol Heparin Sodium (Porcine) 5,000 unit 06/16/20 22:00 06/25/20 09:59 Heparin SUB-Q 5,000 unit Q12HR KATHARINE Administration Insulin Glargine 18 units 06/23/20 10:00 06/25/20 09:59 Lantus SUB-Q 18 units BID KATHARINE Administration Insulin Human Lispro 0 unit 06/19/20 11:30 06/25/20 12:17 Humalog SUB-Q 6 unit ACHS KATHARINE Administration Protocol Ondansetron HCl 4 mg 06/16/20 18:24 Zofran IV Q8H PRN Nausea And Vomiting Sodium Chloride 10 ml 06/16/20 22:00 06/25/20 10:00 Sodium Chloride Flush Syringe 10 Ml IV 10 ml BID KATHARINE Administration Sodium Chloride 10 ml 06/16/20 18:24 06/18/20 05:38 Sodium Chloride Flush Syringe 10 Ml IV 10 ml PRN PRN Administration LINE FLUSH Zinc Sulfate 220 mg 06/18/20 10:00 06/25/20 09:59 Zinc Sulfate PO 220 mg QDAY KATHARINE Administration Nutrition/Malnutrition Assess - Dietary Evaluation Nutrition/Malnutrition Findings: Nutrition Notes Start: 06/23/20 12:57 Freq: Status: Active Protocol: Document 06/23/20 12:57 AT (Rec: 06/23/20 13:02 AT [id number] Co-Sign 06/23/20 12:57 LM Nutrition Notes Need for Assessment generated from: LOS Initial or Follow up Brief Note Other Pertinent Diagnosis Pneu d/t COVID-19(+), hyponatremia, hypokalemia Current Diet Consistent CHO Labs/Tests BG 201 A1C 10.8 Pertinent Medications Vitamin C Vitamin D3 Decadron Lantus Humalog Zinc Sulfate Subjective/Other Information Screen for LOS. Per chart, pt is consuming 100% of meals. Could not reach pt by phone. Per nurse, pt ate 100% of meals today. Nutrition Intervention Follow-Up By: 06/26/20 Additional Comments F/U for diet education needs
[2020-06-26] MEDS ORDERED: INSULIN LISPRO 100 UNIT/ML VIAL 3 mL SUB-Q SCH (07:30)
[2020-06-26] MEDS: INSULIN LISPRO 100 UNIT/ML VIAL 3 mL SUB-Q SCH ×4 (08:13→23:44)
[2020-06-26 09:11] LABS: Blood Urea Nitrogen 16 mg/dL (9-20); Calcium 9.2 mg/dL (8.4-10.2); Hemolysis Index 7
[2020-06-26 09:18] LABS: BUN/Creatinine Ratio 32
[2020-06-26] MEDS: ZINC SULFATE 220 MG CAP PO SCH (09:39)
[2020-06-26] MEDS: ASCORBIC ACID 500 MG TAB PO SCH (09:39)
[2020-06-26] MEDS: DEXAMETHASONE 4 MG TAB PO SCH (09:39)
[2020-06-26] MEDS: CHOLECALCIFEROL (VIT D3) 5,000 UNIT TAB PO SCH (09:39)
[2020-06-26] MEDS: HEPARIN 5,000 UNIT/1 ML VIAL SUB-Q SCH ×2 (09:40→23:43)
[2020-06-26] MEDS: INSULIN GLARGINE 100 UNITS/ML SUB-Q SCH ×2 (09:40→23:42)
--- NOTE | 2020-06-26 13:21 | Progress Note ---
Assessment and Plan 39 y/o male with acute respiratory failure secondary to COVID 19 pneumonia. 1. Wean FiO2 for sats >88% 2. not a candidate for Convalescent plasma 3. Continue steroids for 10 days total, end on the . 4. electrolyte replacement per primary team 5. Proning as much as possible 6. Most likely patient will need oxygen at discharge. Will need ambulatory walk test prior to release. Subjective Date of service: 06/26/20 Principal diagnosis: shortness of breath Interval history: Oxygen is coming down very well. Last documented at 20liters and 50% with sat of 95 Objective Vital Signs - 12hr 06/26/20 06/26/20 06/26/20 03:08 04:19 08:09 Temperature 97.7 F Pulse Rate 57 L Respiratory 20 Rate Blood Pressure 95/68 O2 Sat by Pulse 98 98 95 Oximetry 06/26/20 06/26/20 11:35 11:38 Temperature Pulse Rate 66 Respiratory Rate Blood Pressure 154/125 83/42 O2 Sat by Pulse 98 Oximetry Constitutional: other (Mild respiratory distress on high flow nasal cannula at 80%) Eyes: non-icteric ENT: oropharynx moist Neck: supple, no lymphadenopathy, no JVD Ascultation: Bilateral: rhonchi Gastrointestinal: normoactive bowel sounds CBC and BMP: 06/25/20 05:09 06/26/20 08:04 ABG, PT/INR, D-dimer: PT/INR, D-dimer D-Dimer 383.39 ng/mlDDU (0-234) H 06/25/20 05:09 Abnormal lab findings: Abnormal Labs 06/16/20 06/16/20 06/16/20 15:21 15:21 15:21 WBC RBC Hgb Hct RDW Lymph % (Auto) Russell % (Auto) Russell # (Auto) Seg Neutrophils % Seg Neutrophils # D-Dimer 349.09 H Sodium Potassium Chloride Carbon Dioxide BUN Creatinine Glucose 291 H POC Glucose Hemoglobin A1c Ferritin 1670.0 H AST ALT Lactate Dehydrogenase 316 H C-Reactive Protein 36.30 H Albumin Coronavirus (PCR) SARS-CoV-2 IgG Ab 06/16/20 06/16/20 06/17/20 15:21 15:21 05:44 WBC 11.6 H RBC 5.52 H 5.21 H Hgb 16.1 H 15.6 H Hct 48.3 H 46.6 H RDW Lymph % (Auto) 10.5 L Russell % (Auto) 7.7 H 11.7 H Russell # (Auto) 0.9 H 1.2 H Seg Neutrophils % 81.6 H Seg Neutrophils # 9.5 H D-Dimer Sodium Potassium Chloride Carbon Dioxide BUN Creatinine 0.5 L Glucose 289 H POC Glucose Hemoglobin A1c Ferritin AST ALT Lactate Dehydrogenase C-Reactive Protein Albumin 3.8 L Coronavirus (PCR) SARS-CoV-2 IgG Ab 06/17/20 06/17/20 06/18/20 05:44 10:03 21:43 WBC RBC Hgb Hct RDW Lymph % (Auto) Russell % (Auto) Russell # (Auto) Seg Neutrophils % Seg Neutrophils # D-Dimer Sodium 136 L Potassium Chloride 97.8 L Carbon Dioxide 20 L BUN 22 H Creatinine Glucose 299 H POC Glucose 386 H Hemoglobin A1c Ferritin AST ALT Lactate Dehydrogenase C-Reactive Protein Albumin Coronavirus (PCR) Positive A SARS-CoV-2 IgG Ab 06/19/20 06/19/20 06/19/20 05:19 05:19 07:52 WBC RBC 5.37 H Hgb 15.9 H Hct 46.9 H RDW 12.9 L Lymph % (Auto) Russell % (Auto) 9.7 H Russell # (Auto) 0.9 H Seg Neutrophils % 71.9 H Seg Neutrophils # D-Dimer Sodium Potassium Chloride Carbon Dioxide 21 L BUN 31 H Creatinine Glucose 353 H POC Glucose 360 H Hemoglobin A1c Ferritin AST ALT Lactate Dehydrogenase C-Reactive Protein Albumin Coronavirus (PCR) SARS-CoV-2 IgG Ab 06/19/20 06/19/20 06/19/20 13:02 16:40 16:40 WBC RBC Hgb Hct RDW Lymph % (Auto) Russell % (Auto) Russell # (Auto) Seg Neutrophils % Seg Neutrophils # D-Dimer 574.02 H Sodium Potassium Chloride Carbon Dioxide BUN Creatinine Glucose POC Glucose 392 H Hemoglobin A1c Ferritin AST ALT Lactate Dehydrogenase 323 H C-Reactive Protein Albumin Coronavirus (PCR) SARS-CoV-2 IgG Ab 06/19/20 06/19/20 06/19/20 16:40 16:40 16:40 WBC RBC Hgb Hct RDW Lymph % (Auto) Russell % (Auto) Russell # (Auto) Seg Neutrophils % Seg Neutrophils # D-Dimer Sodium Potassium Chloride Carbon Dioxide BUN Creatinine Glucose POC Glucose Hemoglobin A1c 10.8 H Ferritin 2098.0 H AST ALT Lactate Dehydrogenase C-Reactive Protein 5.10 H Albumin Coronavirus (PCR) SARS-CoV-2 IgG Ab 06/19/20 06/19/20 06/20/20 17:50 23:00 08:12 WBC RBC Hgb Hct RDW Lymph % (Auto) Russell % (Auto) Russell # (Auto) Seg Neutrophils % Seg Neutrophils # D-Dimer Sodium Potassium Chloride Carbon Dioxide BUN Creatinine Glucose POC Glucose 412 H 317 H 286 H Hemoglobin A1c Ferritin AST ALT Lactate Dehydrogenase C-Reactive Protein Albumin Coronavirus (PCR) SARS-CoV-2 IgG Ab 06/20/20 06/20/20 06/20/20 12:41 16:43 22:22 WBC RBC Hgb Hct RDW Lymph % (Auto) Russell % (Auto) Russell # (Auto) Seg Neutrophils % Seg Neutrophils # D-Dimer Sodium Potassium Chloride Carbon Dioxide BUN Creatinine Glucose POC Glucose 374 H 315 H 316 H Hemoglobin A1c Ferritin AST ALT Lactate Dehydrogenase C-Reactive Protein Albumin Coronavirus (PCR) SARS-CoV-2 IgG Ab 06/21/20 06/21/20 06/21/20 07:13 07:13 09:14 WBC RBC Hgb Hct RDW Lymph % (Auto) Russell % (Auto) Russell # (Auto) Seg Neutrophils % Seg Neutrophils # D-Dimer 837.90 H Sodium Potassium Chloride Carbon Dioxide BUN Creatinine Glucose POC Glucose 229 H Hemoglobin A1c Ferritin AST ALT Lactate Dehydrogenase 231 H C-Reactive Protein 2.20 H Albumin Coronavirus (PCR) SARS-CoV-2 IgG Ab 06/21/20 06/21/20 06/21/20 13:02 13:44 19:44 WBC RBC Hgb Hct RDW Lymph % (Auto) Russell % (Auto) Russell # (Auto) Seg Neutrophils % Seg Neutrophils # D-Dimer Sodium Potassium Chloride Carbon Dioxide BUN Creatinine Glucose POC Glucose 416 H 396 H Hemoglobin A1c Ferritin AST ALT Lactate Dehydrogenase C-Reactive Protein Albumin Coronavirus (PCR) SARS-CoV-2 IgG Ab Reactive A 06/21/20 06/22/20 06/22/20 23:09 05:12 07:43 WBC RBC Hgb Hct RDW Lymph % (Auto) Russell % (Auto) Russell # (Auto) Seg Neutrophils % Seg Neutrophils # D-Dimer Sodium 136 L Potassium 3.3 L D Chloride Carbon Dioxide BUN 22 H Creatinine 0.5 L Glucose 256 H POC Glucose 328 H 248 H Hemoglobin A1c Ferritin AST 42 H ALT Lactate Dehydrogenase C-Reactive Protein Albumin 3.0 L Coronavirus (PCR) SARS-CoV-2 IgG Ab 06/22/20 06/22/20 06/22/20 13:05 16:06 21:39 WBC RBC Hgb Hct RDW Lymph % (Auto) Russell % (Auto) Russell # (Auto) Seg Neutrophils % Seg Neutrophils # D-Dimer Sodium Potassium Chloride Carbon Dioxide BUN Creatinine Glucose POC Glucose 339 H 341 H 224 H Hemoglobin A1c Ferritin AST ALT Lactate Dehydrogenase C-Reactive Protein Albumin Coronavirus (PCR) SARS-CoV-2 IgG Ab 06/23/20 06/23/20 06/23/20 05:31 05:31 05:31 WBC RBC Hgb Hct RDW Lymph % (Auto) Russell % (Auto) Russell # (Auto) Seg Neutrophils % Seg Neutrophils # D-Dimer 560.69 H Sodium Potassium Chloride Carbon Dioxide BUN Creatinine 0.6 L Glucose 201 H POC Glucose Hemoglobin A1c Ferritin 1770.0 H AST ALT Lactate Dehydrogenase 189 H C-Reactive Protein Albumin Coronavirus (PCR) SARS-CoV-2 IgG Ab 06/23/20 06/23/20 06/24/20 18:01 23:06 08:18 WBC RBC Hgb Hct RDW Lymph % (Auto) Russell % (Auto) Russell # (Auto) Seg Neutrophils % Seg Neutrophils # D-Dimer Sodium Potassium Chloride Carbon Dioxide BUN Creatinine Glucose POC Glucose 379 H 265 H 145 H Hemoglobin A1c Ferritin AST ALT Lactate Dehydrogenase C-Reactive Protein Albumin Coronavirus (PCR) SARS-CoV-2 IgG Ab 06/24/20 06/24/20 06/24/20 11:43 16:09 22:35 WBC RBC Hgb Hct RDW Lymph % (Auto) Russell % (Auto) Russell # (Auto) Seg Neutrophils % Seg Neutrophils # D-Dimer Sodium Potassium Chloride Carbon Dioxide BUN Creatinine Glucose POC Glucose 330 H 349 H 274 H Hemoglobin A1c Ferritin AST ALT Lactate Dehydrogenase C-Reactive Protein Albumin Coronavirus (PCR) SARS-CoV-2 IgG Ab 06/25/20 06/25/20 06/25/20 05:09 05:09 05:09 WBC RBC Hgb Hct RDW Lymph % (Auto) Russell % (Auto) Russell # (Auto) Seg Neutrophils % Seg Neutrophils # D-Dimer 383.39 H Sodium Potassium 3.4 L Chloride Carbon Dioxide 21 L BUN Creatinine 0.4 L Glucose 170 H POC Glucose Hemoglobin A1c Ferritin 1844.0 H AST ALT 84 H Lactate Dehydrogenase 196 H C-Reactive Protein Albumin 3.2 L Coronavirus (PCR) SARS-CoV-2 IgG Ab 06/25/20 06/25/20 06/25/20 05:09 07:39 11:01 WBC RBC 5.47 H Hgb 16.0 H Hct 46.6 H RDW 12.8 L Lymph % (Auto) Russell % (Auto) 8.1 H Russell # (Auto) Seg Neutrophils % Seg Neutrophils # D-Dimer Sodium Potassium Chloride Carbon Dioxide BUN Creatinine Glucose POC Glucose 182 H 272 H Hemoglobin A1c Ferritin AST ALT Lactate Dehydrogenase C-Reactive Protein Albumin Coronavirus (PCR) SARS-CoV-2 IgG Ab 06/25/20 06/25/20 06/26/20 16:12 21:14 08:04 WBC RBC Hgb Hct RDW Lymph % (Auto) Russell % (Auto) Russell # (Auto) Seg Neutrophils % Seg Neutrophils # D-Dimer Sodium Potassium Chloride Carbon Dioxide BUN Creatinine 0.5 L Glucose 153 H POC Glucose 299 H 305 H Hemoglobin A1c Ferritin AST ALT Lactate Dehydrogenase C-Reactive Protein Albumin Coronavirus (PCR) SARS-CoV-2 IgG Ab 06/26/20 06/26/20 08:05 12:38 WBC RBC Hgb Hct RDW Lymph % (Auto) Russell % (Auto) Russell # (Auto) Seg Neutrophils % Seg Neutrophils # D-Dimer Sodium Potassium Chloride Carbon Dioxide BUN Creatinine Glucose POC Glucose 136 H 253 H Hemoglobin A1c Ferritin AST ALT Lactate Dehydrogenase C-Reactive Protein Albumin Coronavirus (PCR) SARS-CoV-2 IgG Ab
--- NOTE | 2020-06-26 15:04 | Progress Note ---
Assessment and Plan Cultures: Blood cultures 06/16/2020 no growth A/P: 39-year-old man past medical history diabetes admitted with COVID-19 pneumonia #Hypotension:? Secondary to COVID-19 pneumonia. #Severe COVID-19 pneumonia: Patient presented with a week of symptoms, chest x- ray with diffuse bilateral infiltrates, very elevated inflammatory markers, ferritin 1944 worsening, CRP improving. #Acute hypoxemic respiratory failure: Likely secondary to COVID-19 infection. Currently on high flow nasal cannula #Diabetes: tight glycemic control for best outcomes. Recs: -Repeat blood cultures and UA -Recheck procalcitonin -Monitor blood pressure -Consider chest CTA rule out PE -Continue dexamethasone per pulmonary -Completed remdesivir -Obtain daily inflammatory markers - ferritin, Ddimer, CRP, LDH -Proning as able -Anticoagulation per primary -Covid antibody positive, not a candidate for CCP. Destiny Guevara MD [facility] ([facility]) Office [phone] Subjective Date of service: 06/26/20 Principal diagnosis: COVID-19 Interval history: Patient remains on high flow nasal cannula, 80%, no fever, noted hypotension. Objective - Exam Narrative Exam: Physical Exam: reviewed ED and hospitalist notes, limited due to conservation of PPE and decrease risk of transmission. General appearance: limited due to conservation of PPE Eyes: limited due to conservation of PPE HENT: Atraumatic; limited due to conservation of PPE Lungs: limited due to conservation of PPE CV: limited due to conservation of PPE Abdomen: limited due to conservation of PPE Extremities: limited due to conservation of PPE Skin: limited due to conservation of PPE Psych: limited due to conservation of PPE Neuro: limited due to conservation of PPE - Constitutional Vitals: Vital Signs Temp Pulse Resp BP Pulse Ox 97.7 F 66 20 83/42 98 06/26/20 04:19 06/26/20 11:35 06/26/20 04:19 06/26/20 11:38 06/26/20 11:35 Temperature -Last 24 Hours Temperature 97.7 F Temperature 98.2 F Temperature 98.2 F - Labs CBC & Chem 7: 06/25/20 05:09 06/26/20 08:04 Labs: Abnormal lab results 06/25/20 06/25/20 06/26/20 Range/Units 16:12 21:14 08:04 Creatinine 0.5 L (0.8-1.3) mg/dL Glucose 153 H (75-100) mg/dL POC Glucose 299 H 305 H (70-105) mg/dL 06/26/20 06/26/20 Range/Units 08:05 12:38 Creatinine (0.8-1.3) mg/dL Glucose (75-100) mg/dL POC Glucose 136 H 253 H (70-105) mg/dL
--- NOTE | 2020-06-26 18:12 | Progress Note ---
Assessment and Plan - Patient Problems (1) Pneumonia due to COVID-19 virus Current Visit: Yes Status: Acute Plan to address problem: 06/17: COVID-19 PCR positive 06/16 through 06/18 antibiotic therapy, which was received by ID Infectious disease consulted Contact/droplet precautions 06/18: Initiated on remdesivir, zinc, vitamin C, vitamin D, abx dc, methylprednisone changed to dexamathsone Supplemental oxygen as needed Prone to sleep OOB 3 times daily and as needed Pulmonary consult Pulmonary hygiene Anticoagulation per COVID-19 protocol Trend inflammatory markers 07/01 SARs CoV 2 antibody test ordered, consent obtained for transfusion of convalescent plasma if antibody testing is negative Will need to discharge with Eliquis 2.5 twice daily for 7 days 06/22 Bilateral lower extremity duplex ultrasound negative for DVT 06/26 CTA chest ordered per ID recommendation (2) Acute hypoxemic respiratory failure Current Visit: Yes Status: Acute Plan to address problem: Patient is on supplemental oxygenation with high flow nasal cannula Wean as tolerated Dexamethasone therapy Pulmonary hygiene 06/22 Bilateral lower extremity duplex ultrasound negative for DVT 06/26 CTA chest ordered per ID recommendation (3) Hypokalemia Current Visit: Yes Status: Resolved Plan to address problem: 06/22 potassium 3.3 Repleted Replete as necessary Trend BMP 06/25 potassium 3.4, (4) Metabolic acidosis Current Visit: Yes Status: Resolved Plan to address problem: 06/25 CO2 21 on BMP 06/26 CO2 28 on BMP Trend BMP (5) Elevated d-dimer Current Visit: Yes Status: Acute Plan to address problem: Presented with a D-dimer of 349, 06/19 D-dimer 574, 06/21 D-dimer 837, 06/23 D- dimer 560, 06/25 D-dimer 383 06/22 bilateral lower extremity Doppler ultrasounds negative for DVT 06/26 CTA chest pending per ID recommendation Patient will need to be discharged with Eliquis 2.5 twice daily for 7 days Anticoagulation per protocol (6) Diabetes Current Visit: Yes Status: Chronic Plan to address problem: 06/19 hemoglobin A1c 10.8 SSI, increased to high dose scale Lantus, dose increased on 06/20 to attempt tighter glycemic control, 07/01 dosing increased, 06/26 dose increased CC diet Accu-Cheks AC at bedtime May need to discharge with Metformin low-dose Encourage dietary changes and increase physical activity upon discharge as tolerated (7) DVT prophylaxis Current Visit: Yes Status: Acute Plan to address problem: SCDs to bilateral extremities while in bed Heparin subcu while inpt We will need to discharge with Eliquis 2.5mg twice daily for 30 days History Interval history: This is a 39-year-old male with diabetes mellitus who presented to the emergency department on 06/16 with complaints of feeling sick over the past week experiencing a subjective fever, dry cough, S OB, decreased exercise intolerance, malaise, body aches which worsened over the past 2 days prior to presentation after known COVID-19 exposure. EMS was notified and upon arrival found the patient in distress with a pulse oximetry of 80% on room air and plan patient has developed oxygenation via nonrebreather mask. In the emergency department patient was found to have a pulse oximetry of 80% on room air which is consistent with acute hypoxemic respiratory failure and his chest x-ray revealed bilateral pneumonia. Infectious disease and pulmonology were consulted. Today on examination patient is on 60% FiO2 and states that he feels symptomatically much better. Patient assessment completed with the use of language line. 06/17: COVID-19 PCR positive 06/18:Initiated on remdesivir, zinc, vitamin C, vitamin D, abx dc, methylprednisone changed to dexamathsone 06/20: Remains in high flow nasal cannula, he is complaining of cough and shortness of breath with exertion. With the help of a midwife patient was instructed on proning as much as possible and pulmonary hygiene. Patient remains on high flow nasal cannula at 80% FiO2 on 30 L. Patient is on remdesivir therapy day 08/24. Increased lantus and SSI to high dose for tighter BG control. 06/21: COVID-19 antibody test ordered for possible convalescent plasma transfusion given minimal provement in oxygenation. COVID-19 plasma transfusion consent obtained with the help of the language line. Patient states that he still get shortness of breath with any exertion and is still coughing. Lantus dosing increased for persistent hyperglycemia. Remdesivir therapy day /06/22: Patient remains on high flow NC at 80% FiO2. Remdesivir therapy day 10/22 06/24. Remains on high flow at 80%. No complaints. ID and pulm following 06/25. On 70% with sats >94%. No complaints. Hospitalist Physical - Constitutional Vitals: Temp Pulse Resp BP Pulse Ox 98.3 F 69 20 82/54 96 06/26/20 16:02 06/26/20 16:02 06/26/20 04:19 06/26/20 16:02 06/26/20 16:02 General appearance: Present: no acute distress, mild distress, obese Results - Labs CBC & Chem 7: 06/25/20 05:09 06/26/20 08:04 Labs: Laboratory Last Values WBC 7.9 K/mm3 (4.5-11.0) 06/25/20 05:09 RBC 5.47 M/mm3 (3.65-5.03) H 06/25/20 05:09 Hgb 16.0 gm/dl (11.8-15.2) H 06/25/20 05:09 Hct 46.6 % (35.5-45.6) H 06/25/20 05:09 MCV 85 fl (84-94) 06/25/20 05:09 MCH 29 pg (28-32) 06/25/20 05:09 MCHC 34 % (32-34) 06/25/20 05:09 RDW 12.8 % (13.2-15.2) L 06/25/20 05:09 Plt Count 177 K/mm3 (140-440) 06/25/20 05:09 Lymph % (Auto) 29.3 % (13.4-35.0) 06/25/20 05:09 [place] % (Auto) 8.1 % (0.0-7.3) H 06/25/20 05:09 Eos % (Auto) 0.7 % (0.0-4.3) 06/25/20 05:09 Baso % (Auto) 0.7 % (0.0-1.8) 06/25/20 05:09 Lymph # (Auto) 2.3 K/mm3 (1.2-5.4) 06/25/20 05:09 [place] # (Auto) 0.6 K/mm3 (0.0-0.8) 06/25/20 05:09 Eos # (Auto) 0.1 K/mm3 (0.0-0.4) 06/25/20 05:09 Baso # (Auto) 0.1 K/mm3 (0.0-0.1) 06/25/20 05:09 Seg Neutrophils % 61.2 % (40.0-70.0) 06/25/20 05:09 Seg Neutrophils # 4.8 K/mm3 (1.8-7.7) 06/25/20 05:09 D-Dimer 383.39 ng/mlDDU (0-234) H 06/25/20 05:09 Sodium 137 mmol/L (137-145) 06/26/20 08:04 Potassium 3.7 mmol/L (3.6-5.0) 06/26/20 08:04 Chloride 101.8 mmol/L (98-107) 06/26/20 08:04 Carbon Dioxide 28 mmol/L (22-30) D 06/26/20 08:04 Anion Gap 11 mmol/L 06/26/20 08:04 BUN 16 mg/dL (9-20) 06/26/20 08:04 Creatinine 0.5 mg/dL (0.8-1.3) L 06/26/20 08:04 Estimated GFR > 60 ml/min 06/26/20 08:04 BUN/Creatinine Ratio 32 % 06/26/20 08:04 Glucose 153 mg/dL (75-100) H 06/26/20 08:04 POC Glucose 302 mg/dL (70-105) H 06/26/20 16:00 Hemoglobin A1c 10.8 % (4-6) H 06/19/20 16:40 Lactic Acid 1.30 mmol/L (0.7-2.0) 06/16/20 15:21 Calcium 9.2 mg/dL (8.4-10.2) 06/26/20 08:04 Ferritin 1844.0 ng/mL (30.0-300.0) H 06/25/20 05:09 Total Bilirubin 0.50 mg/dL (0.1-1.2) 06/25/20 05:09 AST 30 units/L (5-40) 06/25/20 05:09 ALT 84 units/L (7-56) H 06/25/20 05:09 Alkaline Phosphatase 66 units/L (35-129) 06/25/20 05:09 Lactate Dehydrogenase 196 units/L (91-180) H 06/25/20 05:09 C-Reactive Protein 0.70 mg/dL (0.00-1.30) 06/25/20 05:09 Total Protein 6.3 g/dL (6.3-8.2) 06/25/20 05:09 Albumin 3.2 g/dL (3.9-5) L 06/25/20 05:09 Albumin/Globulin Ratio 1.0 % 06/25/20 05:09 Procalcitonin 0.46 ng/mL (<0.15) 06/16/20 15:21 Coronavirus (PCR) Positive (Negative) A 06/17/20 10:03 SARS-CoV-2 IgG Ab Reactive (NonReactive) A 06/21/20 13:02 Blood Type O POSITIVE 06/21/20 13:00 Antibody Screen Negative 06/21/20 13:00 Bernal/IV: Voiding Method Toilet IV Catheter Type [Right Hand] Peripheral IV IV Catheter Type [Left INT / Saline Lock Antecubital] Active Medications - Current Medications Current Medications: Generic Name Dose Route Start Last Admin Trade Name Freq PRN Reason Stop Dose Admin Acetaminophen 650 mg 06/16/20 18:24 Tylenol PO Q4H PRN Pain MILD(1-3)/Fever >100.5/COLLAZO Ascorbic Acid 500 mg 06/18/20 10:00 06/26/20 09:39 Vitamin C PO 500 mg QDAY KATHARINE Administration Cholecalciferol 5,000 unit 06/18/20 10:00 06/26/20 09:39 Vitamin D3 PO 5,000 unit DAILY KATHARINE Administration Dexamethasone 6 mg 06/20/20 10:00 06/26/20 09:39 Decadron PO 06/29/20 10:01 6 mg DAILY KATHARINE Administration Dextrose 50 ml 06/19/20 08:36 D50w (25gm) Syringe IV Q30MIN PRN Hypoglycemia Protocol Heparin Sodium (Porcine) 5,000 unit 06/16/20 22:00 06/26/20 09:40 Heparin SUB-Q 5,000 unit Q12HR KAHTARINE Administration Insulin Glargine 22 units 06/26/20 10:00 06/26/20 09:40 Lantus SUB-Q 22 units BID KATHARINE Administration Insulin Human Lispro 0 unit 06/19/20 11:30 06/26/20 13:58 Humalog SUB-Q 6 unit ACHS KATHARINE Administration Protocol Ondansetron HCl 4 mg 11/27/20 18:24 Zofran IV Q8H PRN Nausea And Vomiting Sodium Chloride 10 ml 06/16/20 22:00 06/26/20 09:40 Sodium Chloride Flush Syringe 10 Ml IV 10 ml BID KATHARINE Administration Sodium Chloride 10 ml 06/16/20 18:24 06/18/20 05:38 Sodium Chloride Flush Syringe 10 Ml IV 10 ml PRN PRN Administration LINE FLUSH Zinc Sulfate 220 mg 06/18/20 10:00 06/26/20 09:39 Zinc Sulfate PO 220 mg QDAY KATHARINE Administration Nutrition/Malnutrition Assess - Dietary Evaluation Nutrition/Malnutrition Findings: Nutrition Notes Start: 06/23/20 12:57 Freq: Status: Active Protocol: Document 06/26/20 16:55 (Rec: 06/26/20 16:57 [id number]) Nutrition Notes Need for Assessment generated from: LOS Initial or Follow up Brief Note Other Pertinent Diagnosis Pneu d/t COVID-19(+), hyponatremia, hypokalemia Current Diet Consistent CHO Subjective/Other Information FU for DM education needs. Pt did not answer phone x2. Nutrition Intervention Follow-Up By: 06/28/20 Additional Comments FU for diet education needs
[2020-06-27] MEDS ORDERED: SODIUM CHLORIDE 0.9% 250ML 250 ML ONE (00:12)
[2020-06-27] MEDS ORDERED: SODIUM CHLORIDE 0.9% 250ML 250 ML IV ONE (00:15)
[2020-06-27 05:41] LABS: Bacteria,Urine 1+ /HPF (Negative); Bilirubin,Urine NEG (Negative); Blood,Urine NEG (Negative); Color,Urine Straw (Yellow); Protein,Urine <15 mg/dL mg/dL (Negative); RBC,Urine < 1.0 /HPF (0.0-6.0); Urobilinogen,Urine < 2.0 mg/dL (<2.0); WBC,Urine < 1.0 /HPF (0.0-6.0)
[2020-06-27 06:54] LABS: Basophils % (Auto) 0.5 % (0.0-1.8); Eosinophils # (Auto) 0.1 K/mm3 (0.0-0.4); Eosinophils % (Auto) 0.7 % (0.0-4.3); Hematocrit 44.8 % (35.5-45.6); Hemoglobin 15.5 gm/dl (11.8-15.2); Lymphocytes # (Auto) 2.7 K/mm3 (1.2-5.4); Lymphocytes % (Auto) 34.1 % (13.4-35.0); Mean Corpuscular HGB Conc 35 % (32-34); Mean Corpuscular Volume 86 fl (84-94); Monocytes # (Auto) 0.7 K/mm3 (0.0-0.8); Monocytes % (Auto) 8.7 % (0.0-7.3); Platelet Count 214 K/mm3 (140-440); Red Blood Count 5.19 M/mm3 (3.65-5.03); Red Cell Distribution Width 12.9 % (13.2-15.2)
[2020-06-27 07:10] LABS: Alanine Aminotransferase 74 units/L (7-56); Albumin 3.1 g/dL (3.9-5); Blood Urea Nitrogen 16 mg/dL (9-20); Hemolysis Index 9
[2020-06-27 07:20] LABS: BUN/Creatinine Ratio 32
--- NOTE | 2020-06-27 08:49 | Progress Note ---
Assessment and Plan Cultures: Blood cultures 06/16/2020 no growth Blood culture 06/26/2020 pending A/P: 39-year-old man past medical history diabetes admitted with COVID-19 pneumonia #Hypotension:? Secondary to COVID-19 pneumonia. #Severe COVID-19 pneumonia: Patient presented with a week of symptoms, chest x-ray with diffuse bilateral infiltrates, very elevated inflammatory markers, ferritin 1944 worsening, CRP improving. #Acute hypoxemic respiratory failure: Likely secondary to COVID-19 infection. Remains on high flow nasal cannula. #Diabetes: tight glycemic control for best outcomes. Recs: -Follow-up repeat blood cultures and UA -Follow-up procalcitonin -Monitor blood pressure -Consider chest CTA rule out PE -Continue dexamethasone per pulmonary -Completed remdesivir -Obtain daily inflammatory markers - ferritin, Ddimer, CRP, LDH -Proning as able -Anticoagulation per primary -Covid antibody positive, not a candidate for CCP. Destiny Guevara MD [facility] ([facility]) Office [phone] Subjective Date of service: 06/27/20 Principal diagnosis: COVID-19 Interval history: Patient remains on high flow nasal cannula, 40%, no fever remains hypotensive Objective - Exam Narrative Exam: Physical Exam: reviewed ED and hospitalist notes, limited due to conservation of PPE and decrease risk of transmission. General appearance: limited due to conservation of PPE Eyes: limited due to conservation of PPE HENT: Atraumatic; limited due to conservation of PPE Lungs: limited due to conservation of PPE CV: limited due to conservation of PPE Abdomen: limited due to conservation of PPE Extremities: limited due to conservation of PPE Skin: limited due to conservation of PPE Psych: limited due to conservation of PPE Neuro: limited due to conservation of PPE - Constitutional Vitals: Vital Signs Temp Pulse Resp BP Pulse Ox 98.6 F 60 16 85/56 97 06/27/20 04:06 06/27/20 07:39 06/27/20 07:39 06/27/20 07:39 06/27/20 07:39 Temperature -Last 24 Hours Temperature 98.6 F Temperature 98.9 F Temperature 98.3 F - Labs CBC & Chem 7: 06/27/20 05:27 06/27/20 05:27 Labs: Abnormal lab results 06/26/20 06/26/20 06/26/20 Range/Units 08:04 12:38 16:00 RBC (3.65-5.03) M/mm3 Hgb (11.8-15.2) gm/dl MCHC (32-34) % RDW (13.2-15.2) % [place] % (Auto) (0.0-7.3) % Sodium (137-145) mmol/L Potassium (3.6-5.0) mmol/L Creatinine 0.5 L (0.8-1.3) mg/dL Glucose 153 H (75-100) mg/dL POC Glucose 253 H 302 H (70-105) mg/dL ALT (7-56) units/L Total Protein (6.3-8.2) g/dL Albumin (3.9-5) g/dL 06/26/20 06/27/20 06/27/20 Range/Units 21:16 05:27 05:27 RBC 5.19 H (3.65-5.03) M/mm3 Hgb 15.5 H (11.8-15.2) gm/dl MCHC 35 H (32-34) % RDW 12.9 L (13.2-15.2) % [place] % (Auto) 8.7 H (0.0-7.3) % Sodium 136 L (137-145) mmol/L Potassium 3.4 L (3.6-5.0) mmol/L Creatinine 0.5 L (0.8-1.3) mg/dL Glucose 131 H (75-100) mg/dL POC Glucose 210 H (70-105) mg/dL ALT 74 H (7-56) units/L Total Protein 6.0 L (6.3-8.2) g/dL Albumin 3.1 L (3.9-5) g/dL 06/27/20 Range/Units 08:37 RBC (3.65-5.03) M/mm3 Hgb (11.8-15.2) gm/dl MCHC (32-34) % RDW (13.2-15.2) % [place] % (Auto) (0.0-7.3) % Sodium (137-145) mmol/L Potassium (3.6-5.0) mmol/L Creatinine (0.8-1.3) mg/dL Glucose (75-100) mg/dL POC Glucose 117 H (70-105) mg/dL ALT (7-56) units/L Total Protein (6.3-8.2) g/dL Albumin (3.9-5) g/dL
[2020-06-27] MEDS: INSULIN LISPRO 100 UNIT/ML VIAL 3 mL SUB-Q SCH ×4 (08:50→23:08)
[2020-06-27] MEDS ORDERED: SODIUM CHLORIDE 0.9% 500 ML 500 ML IV ONE (09:00)
[2020-06-27] MEDS: ASCORBIC ACID 500 MG TAB PO SCH (09:23)
[2020-06-27] MEDS: DEXAMETHASONE 4 MG TAB PO SCH (09:23)
[2020-06-27] MEDS: HEPARIN 5,000 UNIT/1 ML VIAL SUB-Q SCH ×2 (09:24→23:09)
[2020-06-27] MEDS: CHOLECALCIFEROL (VIT D3) 5,000 UNIT TAB PO SCH (09:24)
[2020-06-27] MEDS: INSULIN GLARGINE 100 UNITS/ML SUB-Q SCH ×2 (09:39→23:08)
[2020-06-27] MEDS: ZINC SULFATE 220 MG CAP PO SCH (09:39)
--- NOTE | 2020-06-27 11:56 | Progress Note ---
Assessment and Plan 39 y/o male with acute respiratory failure secondary to COVID 19 pneumonia. 1. Wean FiO2 for sats >88% 2. not a candidate for Convalescent plasma 3. Continue steroids for 10 days total, end on the . 4. electrolyte replacement per primary team 5. Proning as much as possible 6. Most likely patient will need oxygen at discharge. Will need ambulatory walk test prior to release. Subjective Date of service: 06/27/20 Principal diagnosis: COVID-19 Interval history: No acute events. Now down to 6 liters NC. Good sats Objective Vital Signs - 12hr 06/27/20 06/27/20 06/27/20 04:06 04:20 07:39 Temperature 98.6 F Pulse Rate 61 60 Respiratory 16 16 Rate Blood Pressure 78/35 85/56 O2 Sat by Pulse 97 96 97 Oximetry 06/27/20 11:35 Temperature Pulse Rate Respiratory Rate Blood Pressure O2 Sat by Pulse 97 Oximetry Constitutional: other (Mild respiratory distress on high flow nasal cannula at 80%) Eyes: non-icteric ENT: oropharynx moist Neck: supple, no lymphadenopathy, no JVD Ascultation: Bilateral: rhonchi Gastrointestinal: normoactive bowel sounds CBC and BMP: 06/27/20 05:27 06/27/20 05:27 ABG, PT/INR, D-dimer: PT/INR, D-dimer D-Dimer 383.39 ng/mlDDU (0-234) H 06/25/20 05:09 Abnormal lab findings: Abnormal Labs 06/16/20 06/16/20 06/16/20 15:21 15:21 15:21 WBC RBC Hgb Hct MCHC RDW Lymph % (Auto) [place] % (Auto) [place] # (Auto) Seg Neutrophils % Seg Neutrophils # D-Dimer 349.09 H Sodium Potassium Chloride Carbon Dioxide BUN Creatinine Glucose 291 H POC Glucose Hemoglobin A1c Ferritin 1670.0 H AST ALT Lactate Dehydrogenase 316 H C-Reactive Protein 36.30 H Total Protein Albumin Coronavirus (PCR) SARS-CoV-2 IgG Ab 06/16/20 06/16/20 06/17/20 15:21 15:21 05:44 WBC 11.6 H RBC 5.52 H 5.21 H Hgb 16.1 H 15.6 H Hct 48.3 H 46.6 H MCHC RDW Lymph % (Auto) 10.5 L [place] % (Auto) 7.7 H 11.7 H [place] # (Auto) 0.9 H 1.2 H Seg Neutrophils % 81.6 H Seg Neutrophils # 9.5 H D-Dimer Sodium Potassium Chloride Carbon Dioxide BUN Creatinine 0.5 L Glucose 289 H POC Glucose Hemoglobin A1c Ferritin AST ALT Lactate Dehydrogenase C-Reactive Protein Total Protein Albumin 3.8 L Coronavirus (PCR) SARS-CoV-2 IgG Ab 06/17/20 06/17/20 06/18/20 05:44 10:03 21:43 WBC RBC Hgb Hct MCHC RDW Lymph % (Auto) [place] % (Auto) [place] # (Auto) Seg Neutrophils % Seg Neutrophils # D-Dimer Sodium 136 L Potassium Chloride 97.8 L Carbon Dioxide 20 L BUN 22 H Creatinine Glucose 299 H POC Glucose 386 H Hemoglobin A1c Ferritin AST ALT Lactate Dehydrogenase C-Reactive Protein Total Protein Albumin Coronavirus (PCR) Positive A SARS-CoV-2 IgG Ab 06/19/20 06/19/20 06/19/20 05:19 05:19 07:52 WBC RBC 5.37 H Hgb 15.9 H Hct 46.9 H MCHC RDW 12.9 L Lymph % (Auto) [place] % (Auto) 9.7 H [place] # (Auto) 0.9 H Seg Neutrophils % 71.9 H Seg Neutrophils # D-Dimer Sodium Potassium Chloride Carbon Dioxide 21 L BUN 31 H Creatinine Glucose 353 H POC Glucose 360 H Hemoglobin A1c Ferritin AST ALT Lactate Dehydrogenase C-Reactive Protein Total Protein Albumin Coronavirus (PCR) SARS-CoV-2 IgG Ab 06/19/20 06/19/20 06/19/20 13:02 16:40 16:40 WBC RBC Hgb Hct MCHC RDW Lymph % (Auto) [place] % (Auto) [place] # (Auto) Seg Neutrophils % Seg Neutrophils # D-Dimer 574.02 H Sodium Potassium Chloride Carbon Dioxide BUN Creatinine Glucose POC Glucose 392 H Hemoglobin A1c Ferritin AST ALT Lactate Dehydrogenase 323 H C-Reactive Protein Total Protein Albumin Coronavirus (PCR) SARS-CoV-2 IgG Ab 06/19/20 06/19/20 06/19/20 16:40 16:40 16:40 WBC RBC Hgb Hct MCHC RDW Lymph % (Auto) [place] % (Auto) [place] # (Auto) Seg Neutrophils % Seg Neutrophils # D-Dimer Sodium Potassium Chloride Carbon Dioxide BUN Creatinine Glucose POC Glucose Hemoglobin A1c 10.8 H Ferritin 2098.0 H AST ALT Lactate Dehydrogenase C-Reactive Protein 5.10 H Total Protein Albumin Coronavirus (PCR) SARS-CoV-2 IgG Ab 06/19/20 06/19/20 06/20/20 17:50 23:00 08:12 WBC RBC Hgb Hct MCHC RDW Lymph % (Auto) [place] % (Auto) [place] # (Auto) Seg Neutrophils % Seg Neutrophils # D-Dimer Sodium Potassium Chloride Carbon Dioxide BUN Creatinine Glucose POC Glucose 412 H 317 H 286 H Hemoglobin A1c Ferritin AST ALT Lactate Dehydrogenase C-Reactive Protein Total Protein Albumin Coronavirus (PCR) SARS-CoV-2 IgG Ab 06/20/20 06/20/20 06/20/20 12:41 16:43 22:22 WBC RBC Hgb Hct MCHC RDW Lymph % (Auto) [place] % (Auto) [place] # (Auto) Seg Neutrophils % Seg Neutrophils # D-Dimer Sodium Potassium Chloride Carbon Dioxide BUN Creatinine Glucose POC Glucose 374 H 315 H 316 H Hemoglobin A1c Ferritin AST ALT Lactate Dehydrogenase C-Reactive Protein Total Protein Albumin Coronavirus (PCR) SARS-CoV-2 IgG Ab 06/21/20 06/21/20 06/21/20 07:13 07:13 09:14 WBC RBC Hgb Hct MCHC RDW Lymph % (Auto) [place] % (Auto) [place] # (Auto) Seg Neutrophils % Seg Neutrophils # D-Dimer 837.90 H Sodium Potassium Chloride Carbon Dioxide BUN Creatinine Glucose POC Glucose 229 H Hemoglobin A1c Ferritin AST ALT Lactate Dehydrogenase 231 H C-Reactive Protein 2.20 H Total Protein Albumin Coronavirus (PCR) SARS-CoV-2 IgG Ab 06/21/20 06/21/20 06/21/20 13:02 13:44 19:44 WBC RBC Hgb Hct MCHC RDW Lymph % (Auto) [place] % (Auto) [place] # (Auto) Seg Neutrophils % Seg Neutrophils # D-Dimer Sodium Potassium Chloride Carbon Dioxide BUN Creatinine Glucose POC Glucose 416 H 396 H Hemoglobin A1c Ferritin AST ALT Lactate Dehydrogenase C-Reactive Protein Total Protein Albumin Coronavirus (PCR) SARS-CoV-2 IgG Ab Reactive A 06/21/20 06/22/20 06/22/20 23:09 05:12 07:43 WBC RBC Hgb Hct MCHC RDW Lymph % (Auto) [place] % (Auto) [place] # (Auto) Seg Neutrophils % Seg Neutrophils # D-Dimer Sodium 136 L Potassium 3.3 L D Chloride Carbon Dioxide BUN 22 H Creatinine 0.5 L Glucose 256 H POC Glucose 328 H 248 H Hemoglobin A1c Ferritin AST 42 H ALT Lactate Dehydrogenase C-Reactive Protein Total Protein Albumin 3.0 L Coronavirus (PCR) SARS-CoV-2 IgG Ab 06/22/20 06/22/20 06/22/20 13:05 16:06 21:39 WBC RBC Hgb Hct MCHC RDW Lymph % (Auto) [place] % (Auto) [place] # (Auto) Seg Neutrophils % Seg Neutrophils # D-Dimer Sodium Potassium Chloride Carbon Dioxide BUN Creatinine Glucose POC Glucose 339 H 341 H 224 H Hemoglobin A1c Ferritin AST ALT Lactate Dehydrogenase C-Reactive Protein Total Protein Albumin Coronavirus (PCR) SARS-CoV-2 IgG Ab 06/23/20 06/23/20 06/23/20 05:31 05:31 05:31 WBC RBC Hgb Hct MCHC RDW Lymph % (Auto) [place] % (Auto) [place] # (Auto) Seg Neutrophils % Seg Neutrophils # D-Dimer 560.69 H Sodium Potassium Chloride Carbon Dioxide BUN Creatinine 0.6 L Glucose 201 H POC Glucose Hemoglobin A1c Ferritin 1770.0 H AST ALT Lactate Dehydrogenase 189 H C-Reactive Protein Total Protein Albumin Coronavirus (PCR) SARS-CoV-2 IgG Ab 06/23/20 06/23/20 06/24/20 18:01 23:06 08:18 WBC RBC Hgb Hct MCHC RDW Lymph % (Auto) [place] % (Auto) [place] # (Auto) Seg Neutrophils % Seg Neutrophils # D-Dimer Sodium Potassium Chloride Carbon Dioxide BUN Creatinine Glucose POC Glucose 379 H 265 H 145 H Hemoglobin A1c Ferritin AST ALT Lactate Dehydrogenase C-Reactive Protein Total Protein Albumin Coronavirus (PCR) SARS-CoV-2 IgG Ab 06/24/20 06/24/20 06/24/20 11:43 16:09 22:35 WBC RBC Hgb Hct MCHC RDW Lymph % (Auto) [place] % (Auto) [place] # (Auto) Seg Neutrophils % Seg Neutrophils # D-Dimer Sodium Potassium Chloride Carbon Dioxide BUN Creatinine Glucose POC Glucose 330 H 349 H 274 H Hemoglobin A1c Ferritin AST ALT Lactate Dehydrogenase C-Reactive Protein Total Protein Albumin Coronavirus (PCR) SARS-CoV-2 IgG Ab 06/25/20 06/25/20 06/25/20 05:09 05:09 05:09 WBC RBC Hgb Hct MCHC RDW Lymph % (Auto) [place] % (Auto) [place] # (Auto) Seg Neutrophils % Seg Neutrophils # D-Dimer 383.39 H Sodium Potassium 3.4 L Chloride Carbon Dioxide 21 L BUN Creatinine 0.4 L Glucose 170 H POC Glucose Hemoglobin A1c Ferritin 1844.0 H AST ALT 84 H Lactate Dehydrogenase 196 H C-Reactive Protein Total Protein Albumin 3.2 L Coronavirus (PCR) SARS-CoV-2 IgG Ab 06/25/20 06/25/20 06/25/20 05:09 07:39 11:01 WBC RBC 5.47 H Hgb 16.0 H Hct 46.6 H MCHC RDW 12.8 L Lymph % (Auto) [place] % (Auto) 8.1 H [place] # (Auto) Seg Neutrophils % Seg Neutrophils # D-Dimer Sodium Potassium Chloride Carbon Dioxide BUN Creatinine Glucose POC Glucose 182 H 272 H Hemoglobin A1c Ferritin AST ALT Lactate Dehydrogenase C-Reactive Protein Total Protein Albumin Coronavirus (PCR) SARS-CoV-2 IgG Ab 06/25/20 06/25/20 06/26/20 16:12 21:14 08:04 WBC RBC Hgb Hct MCHC RDW Lymph % (Auto) [place] % (Auto) [place] # (Auto) Seg Neutrophils % Seg Neutrophils # D-Dimer Sodium Potassium Chloride Carbon Dioxide BUN Creatinine 0.5 L Glucose 153 H POC Glucose 299 H 305 H Hemoglobin A1c Ferritin AST ALT Lactate Dehydrogenase C-Reactive Protein Total Protein Albumin Coronavirus (PCR) SARS-CoV-2 IgG Ab 06/26/20 06/26/20 06/26/20 08:05 12:38 16:00 WBC RBC Hgb Hct MCHC RDW Lymph % (Auto) [place] % (Auto) [place] # (Auto) Seg Neutrophils % Seg Neutrophils # D-Dimer Sodium Potassium Chloride Carbon Dioxide BUN Creatinine Glucose POC Glucose 136 H 253 H 302 H Hemoglobin A1c Ferritin AST ALT Lactate Dehydrogenase C-Reactive Protein Total Protein Albumin Coronavirus (PCR) SARS-CoV-2 IgG Ab 06/26/20 06/27/20 06/27/20 21:16 05:27 05:27 WBC RBC 5.19 H Hgb 15.5 H Hct MCHC 35 H RDW 12.9 L Lymph % (Auto) [place] % (Auto) 8.7 H [place] # (Auto) Seg Neutrophils % Seg Neutrophils # D-Dimer Sodium 136 L Potassium 3.4 L Chloride Carbon Dioxide BUN Creatinine 0.5 L Glucose 131 H POC Glucose 210 H Hemoglobin A1c Ferritin AST ALT 74 H Lactate Dehydrogenase C-Reactive Protein Total Protein 6.0 L Albumin 3.1 L Coronavirus (PCR) SARS-CoV-2 IgG Ab 06/27/20 06/27/20 08:37 11:24 WBC RBC Hgb Hct MCHC RDW Lymph % (Auto) [place] % (Auto) [place] # (Auto) Seg Neutrophils % Seg Neutrophils # D-Dimer Sodium Potassium Chloride Carbon Dioxide BUN Creatinine Glucose POC Glucose 117 H 197 H Hemoglobin A1c Ferritin AST ALT Lactate Dehydrogenase C-Reactive Protein Total Protein Albumin Coronavirus (PCR) SARS-CoV-2 IgG Ab
--- NOTE | 2020-06-27 17:07 | Progress Note ---
Assessment and Plan - Patient Problems (1) Pneumonia due to COVID-19 virus Current Visit: Yes Status: Acute Plan to address problem: 06/17: COVID-19 PCR positive 06/16 through 06/18 antibiotic therapy, which was received by ID Infectious disease consulted Contact/droplet precautions 06/18: Initiated on remdesivir, zinc, vitamin C, vitamin D, abx dc, methylprednisone changed to dexamathsone Supplemental oxygen as needed Prone to sleep OOB 3 times daily and as needed Pulmonary consult Pulmonary hygiene Anticoagulation per COVID-19 protocol Trend inflammatory markers 07/01 SARs CoV 2 antibody test ordered, consent obtained for transfusion of convalescent plasma if antibody testing is negative Will need to discharge with Eliquis 2.5 twice daily for 7 days 06/22 Bilateral lower extremity duplex ultrasound negative for DVT 06/26 CTA chest ordered per ID recommendation We will obtain a ambulatory SPO2 before discharge (2) Acute hypoxemic respiratory failure Current Visit: Yes Status: Acute Plan to address problem: Patient is on supplemental oxygenation with high flow nasal cannula Wean as tolerated Dexamethasone therapy Pulmonary hygiene 06/22 Bilateral lower extremity duplex ultrasound negative for DVT 06/26 CTA chest ordered per ID recommendation 06/27 patient was stable to be weaned from high flow nasal cannula to nasal cannula 6 L (3) Hypokalemia Current Visit: Yes Status: Acute Plan to address problem: 06/22 potassium 3.3 Repleted Replete as necessary Trend BMP 06/25 potassium 3.4, repleted, 06/25 potassium 3.7 06/27 potassium 3.4, repleted Follow-up a.m. BMP (4) Elevated d-dimer Current Visit: Yes Status: Acute Plan to address problem: Presented with a D-dimer of 349, 06/19 D-dimer 574, 06/21 D-dimer 837, 06/23 D-d callie 560, 06/25 D-dimer 383 06/22 bilateral lower extremity Doppler ultrasounds negative for DVT 06/26 CTA chest pending per ID recommendation Patient will need to be discharged with Eliquis 2.5 twice daily for 7 days Anticoagulation per protocol (5) Diabetes Current Visit: Yes Status: Chronic Plan to address problem: 06/19 hemoglobin A1c 10.8 SSI, increased to high dose scale Lantus, dose increased on 06/20 to attempt tighter glycemic control, 07/01 dosing increased, 06/26 dose increased, 06/27 dose increased CC diet Accu-Cheks AC at bedtime May need to discharge with Metformin low-dose Encourage dietary changes and increase physical activity upon discharge as tolerated (6) DVT prophylaxis Current Visit: Yes Status: Acute Plan to address problem: SCDs to bilateral extremities while in bed Heparin subcu while inpt We will need to discharge with Eliquis 2.5mg twice daily for 30 days History Interval history: This is a 39-year-old male with diabetes mellitus who presented to the emergency department on 06/16 with complaints of feeling sick over the past week experiencing a subjective fever, dry cough, S OB, decreased exercise intolerance, malaise, body aches which worsened over the past 2 days prior to presentation after known COVID-19 exposure. EMS was notified and upon arrival found the patient in distress with a pulse oximetry of 80% on room air and plan patient has developed oxygenation via nonrebreather mask. In the emergency dep artment patient was found to have a pulse oximetry of 80% on room air which is consistent with acute hypoxemic respiratory failure and his chest x-ray revealed bilateral pneumonia. Infectious disease and pulmonology were consulted. Today RT was able to wean the patient down to 6 L nasal cannula. Patient was hypotensive and she received a 500 L bolus this morning bringing his total inpatient stay boluses to 1 L. Upon recheck patient MAP slightly over 65 however he is maintaining an does not seem to be unstable at this time. Infectious disease decided to reculture and send a repeat CRP. CTA chest was ordered this morning however was not done as of 1699 and RN inquired and she did not know. 06/17: COVID-19 PCR positive 06/18:Initiated on remdesivir, zinc, vitamin C, vitamin D, abx dc, methylprednisone changed to dexamathsone 06/20: Remains in high flow nasal cannula, he is complaining of cough and shortness of breath with exertion. With the help of a stator connector patient was instructed on proning as much as possible and pulmonary hygiene. Patient remains on high flow nasal cannula at 80% FiO2 on 30 L. Patient is on remdesivir therapy day 08/24. Increased lantus and SSI to high dose for tighter BG control. 06/21: COVID-19 antibody test ordered for possible convalescent plasma tr ansfusion given minimal provement in oxygenation. COVID-19 plasma transfusion consent obtained with the help of the language line. Patient states that he still get shortness of breath with any exertion and is still coughing. Lantus dosing increased for persistent hyperglycemia. Remdesivir therapy day 09/21 06/22: Patient remains on high flow NC at 80% FiO2. Remdesivir therapy day 10/22 06/24. Remains on high flow at 80%. No complaints. ID and pulm following 06/25. On 70% with sats >94%. No complaints. 06/26: FiO2 weaned to 60%, family updated Hospitalist Physical - Constitutional Vitals: Temp Pulse Resp BP Pulse Ox 98.3 F 68 16 94/65 97 06/27/20 12:48 06/27/20 13:54 06/27/20 12:48 06/27/20 13:54 06/27/20 13:54 General appearance: Present: no acute distress, obese - EENT Eyes: Present: PERRL, EOM intact ENT: hearing intact, clear oral mucosa - Neck Neck: Present: supple, normal ROM - Respiratory Respiratory effort: normal Respiratory: bilateral: diminished - Cardiovascular Rhythm: regular Heart Sounds: Present: S1 & S2. Absent: systolic murmur, diastolic murmur - Extremities Extremities: no ischemia, pulses intact, pulses symmetrical, No edema, normal temperature, normal color, Full ROM Peripheral Pulses: within normal limits - Abdominal General gastrointestinal: soft, non-tender, non-distended, normal bowel sounds - Integumentary Integumentary: Present: clear, warm, dry - Psychiatric Psychiatric: appropriate mood/affect, cooperative - Neurologic Neurologic: CNII-XII intact, no focal deficits, moves all extremities Results - Labs CBC & Chem 7: 06/27/20 05:27 06/27/20 05:27 Labs: Laboratory Last Values WBC 8.0 K/mm3 (4.5-11.0) 06/27/20 05:27 RBC 5.19 M/mm3 (3.65-5.03) H 06/27/20 05:27 Hgb 15.5 gm/dl (11.8-15.2) H 06/27/20 05:27 Hct 44.8 % (35.5-45.6) 06/27/20 05:27 MCV 86 fl (84-94) 06/27/20 05:27 MCH 30 pg (28-32) 06/27/20 05:27 MCHC 35 % (32-34) H 06/27/20 05:27 RDW 12.9 % (13.2-15.2) L 06/27/20 05:27 Plt Count 214 K/mm3 (140-440) 06/27/20 05:27 Lymph % (Auto) 34.1 % (13.4-35.0) 06/27/20 05:27 Ford % (Auto) 8.7 % (0.0-7.3) H 06/27/20 05:27 Eos % (Auto) 0.7 % (0.0-4.3) 06/27/20 05:27 Baso % (Auto) 0.5 % (0.0-1.8) 06/27/20 05:27 Lymph # (Auto) 2.7 K/mm3 (1.2-5.4) 06/27/20 05:27 Ford # (Auto) 0.7 K/mm3 (0.0-0.8) 06/27/20 05:27 Eos # (Auto) 0.1 K/mm3 (0.0-0.4) 06/27/20 05:27 Baso # (Auto) 0.0 K/mm3 (0.0-0.1) 06/27/20 05:27 Seg Neutrophils % 56.0 % (40.0-70.0) 06/27/20 05:27 Seg Neutrophils # 4.5 K/mm3 (1.8-7.7) 06/27/20 05:27 D-Dimer 383.39 ng/mlDDU (0-234) H 06/25/20 05:09 Sodium 136 mmol/L (137-145) L 06/27/20 05:27 Potassium 3.4 mmol/L (3.6-5.0) L 06/27/20 05:27 Chloride 101.3 mmol/L (98-107) 06/27/20 05:27 Carbon Dioxide 23 mmol/L (22-30) 06/27/20 05:27 Anion Gap 15 mmol/L 06/27/20 05:27 BUN 16 mg/dL (9-20) 06/27/20 05:27 Creatinine 0.5 mg/dL (0.8-1.3) L 06/27/20 05:27 Estimated GFR > 60 ml/min 06/27/20 05:27 BUN/Creatinine Ratio 32 % 06/27/20 05:27 Glucose 131 mg/dL (75-100) H 06/27/20 05:27 POC Glucose 275 mg/dL (70-105) H 06/27/20 16:28 Hemoglobin A1c 10.8 % (4-6) H 06/19/20 16:40 Lactic Acid 1.30 mmol/L (0.7-2.0) 06/16/20 15:21 Calcium 9.0 mg/dL (8.4-10.2) 06/27/20 05:27 Ferritin 1844.0 ng/mL (30.0-300.0) H 06/25/20 05:09 Total Bilirubin 0.60 mg/dL (0.1-1.2) 06/27/20 05:27 AST 27 units/L (5-40) 06/27/20 05:27 ALT 74 units/L (7-56) H 06/27/20 05:27 Alkaline Phosphatase 61 units/L (35-129) 06/27/20 05:27 Lactate Dehydrogenase 196 units/L (91-180) H 06/25/20 05:09 C-Reactive Protein 0.70 mg/dL (0.00-1.30) 06/25/20 05:09 Total Protein 6.0 g/dL (6.3-8.2) L 06/27/20 05:27 Albumin 3.1 g/dL (3.9-5) L 06/27/20 05:27 Albumin/Globulin Ratio 1.1 % 06/27/20 05:27 Procalcitonin < 0.05 ng/mL (<0.15) 06/26/20 16:08 Urine Color Straw (Yellow) 06/26/20 Unknown Urine Turbidity Clear (Clear) 06/26/20 Unknown Urine pH 6.0 (5.0-7.0) 06/26/20 Unknown Ur Specific Beals 1.007 (1.003-1.030) 06/26/20 Unknown Urine Protein <15 mg/dl mg/dL (Negative) 06/26/20 Unknown Urine Glucose (UA) >=500 mg/dL (Negative) 06/26/20 Unknown Urine Ketones Neg mg/dL (Negative) 06/26/20 Unknown Urine Blood Neg (Negative) 06/26/20 Unknown Urine Nitrite Neg (Negative) 06/26/20 Unknown Urine Bilirubin Neg (Negative) 06/26/20 Unknown Urine Urobilinogen < 2.0 mg/dL (<2.0) 06/26/20 Unknown Ur Leukocyte Esterase Neg (Negative) 06/26/20 Unknown Urine WBC (Auto) < 1.0 /HPF (0.0-6.0) 06/26/20 Unknown Urine RBC (Auto) < 1.0 /HPF (0.0-6.0) 06/26/20 Unknown Urine Bacteria (Auto) 1+ /HPF (Negative) 06/26/20 Unknown Coronavirus (PCR) Positive (Negative) A 06/17/20 10:03 SARS-CoV-2 IgG Ab Reactive (NonReactive) A 06/21/20 13:02 Blood Type O POSITIVE 06/21/20 13:00 Antibody Screen Negative 06/21/20 13:00 Microbiology: Microbiology 06/26/20 16:08 Peripheral/Venous Blood Culture - Preliminary Culture in Progress 06/26/20 16:08 Peripheral/Venous Blood Culture - Preliminary Culture in Progress Bernal/IV: Voiding Method Urinal IV Catheter Type [Right Hand] Peripheral IV IV Catheter Type [Left INT / Saline Lock Antecubital] Active Medications - Current Medications Current Medications: Generic Name Dose Route Start Last Admin Trade Name Freq PRN Reason Stop Dose Admin Acetaminophen 650 mg 06/16/20 18:24 Tylenol PO Q4H PRN Pain MILD(1-3)/Fever >100.5/COLLAZO Ascorbic Acid 500 mg 06/18/20 10:00 06/27/20 09:23 Vitamin C PO 500 mg QDAY KATHARINE Administration Cholecalciferol 5,000 unit 06/18/20 10:00 06/27/20 09:24 Vitamin D3 PO 5,000 unit DAILY KATHARINE Administration Dexamethasone 6 mg 06/20/20 10:00 06/27/20 09:23 Decadron PO 06/29/20 10:01 6 mg DAILY KATHARINE Administration Dextrose 50 ml 06/19/20 08:36 D50w (25gm) Syringe IV Q30MIN PRN Hypoglycemia Protocol Heparin Sodium (Porcine) 5,000 unit 06/16/20 22:00 06/27/20 09:24 Heparin SUB-Q 5,000 unit Q12HR KATHARINE Administration Insulin Human Lispro 0 unit 06/19/20 11:30 06/27/20 13:13 Humalog SUB-Q 3 unit ACHS KATHARINE Administration Protocol Ondansetron HCl 4 mg 06/16/20 18:24 Zofran IV Q8H PRN Nausea And Vomiting Potassium Chloride 30 meq 06/28/20 16:59 K-Dur PO 06/28/20 17:00 ONCE ONE Sodium Chloride 10 ml 06/16/20 22:00 06/27/20 09:40 Sodium Chloride Flush Syringe 10 Ml IV 10 ml BID KATHARINE Administration Sodium Chloride 10 ml 06/16/20 18:24 06/18/20 05:38 Sodium Chloride Flush Syringe 10 Ml IV 10 ml PRN PRN Administration LINE FLUSH Zinc Sulfate 220 mg 06/18/20 10:00 06/27/20 09:39 Zinc Sulfate PO 220 mg QDAY KATHARINE Administration Nutrition/Malnutrition Assess - Dietary Evaluation Nutrition/Malnutrition Findings: Nutrition Notes Start: 06/23/20 12:57 Freq: Status: Active Protocol: Document 06/26/20 16:55 (Rec: 06/26/20 16:57 [id number]) Nutrition Notes Need for Assessment generated from: LOS Initial or Follow up Brief Note Other Pertinent Diagnosis Pneu d/t COVID-19(+), hyponatremia, hypokalemia Current Diet Consistent CHO Subjective/Other Information FU for DM education needs. Pt did not answer phone x2. Nutrition Intervention Follow-Up By: 06/28/20 Additional Comments FU for diet education needs
--- NOTE | 2020-06-27 18:12 | Cat Scan Report ---
CT angio chest INDICATION / CLINICAL INFORMATION: r/o pe. TECHNIQUE: Axial CT images were obtained through the chest after injection of IV contrast. 3 plane MIP and/or 3D reconstructions were produced. All CT scans at this location are performed using CT dose reduction f or ALARA by means of automated exposure control. COMPARISON: None available. FINDINGS: PULMONARY ARTERIES: No definite pulmonary emboli. Respiratory motion degrades image quality obscuring the segmental and subsegmental pulmonary arteries. HEART: No significant abnormality. MEDIASTINUM / ANATOLIY: No significant abnormality. LUNGS: Bilateral groundglass opacities seen within all 5 lobes along with a peripheral subpleural pre dilection. No pleural effusion. No pneumothorax. ADDITIONAL FINDINGS: None. UPPER ABDOMEN: No acute findings. SKELETAL STRUCTURES: No significant osseous abnormality. IMPRESSION: 1. No definite pulmonary embolism. Respiratory motion decreases the sensitivity of evaluation. 2. Bilateral airspace disease with classic imaging features of Covid pneumonia. Signer Name: Tripp Navarrete MD Signed: 06/27/2020 6:08 PM Workstation Name: [id number]
[2020-06-28] MEDS ORDERED: SODIUM CHLORIDE 0.9% 500 ML 500 ML IV ONE (00:38)
[2020-06-28 06:43] LABS: Blood Urea Nitrogen 12 mg/dL (9-20); Calcium 8.9 mg/dL (8.4-10.2); Hemolysis Index 6
[2020-06-28 06:48] LABS: BUN/Creatinine Ratio 17
--- NOTE | 2020-06-28 08:02 | Progress Note ---
Assessment and Plan Cultures: Blood cultures 06/16/2020 no growth Blood culture 06/26/2020 no growth today A/P: 39-year-old man past medical history diabetes admitted with COVID-19 pneumonia #Hypotension:? Secondary to COVID-19 pneumonia. ? Baseline hypotension. Patient is asymptomatic. Repeat blood culture negative. Urinalysis negative. Procalcitonin<0.05 #Severe COVID-19 pneumonia: Patient presented with a week of symptoms, chest x- ray with diffuse bilateral infiltrates, very elevated inflammatory markers, ferritin 1944 worsening, CRP improving. CTA without PE, showing multifocal pneumonia. #Acute hypoxemic respiratory failure: Likely secondary to COVID-19 infection. Improving patient is now on 6 L nasal cannula. #Diabetes: tight glycemic control for best outcomes. Recs: -Follow-up repeat blood cultures and UA -Continue dexamethasone per pulmonary -Completed remdesivir -Obtain daily inflammatory markers - ferritin, Ddimer, CRP, LDH, ordered today -Proning as able -Anticoagulation per primary -Covid antibody positive, not a candidate for CCP. Evaluation for home oxygen, obtain 6-minute walking test Destiny Guevara MD [facility] ([facility] Office [phone] Subjective Date of service: 06/28/20 Principal diagnosis: COVID-19 Interval history: Patient reports feeling much better, minimal cough, no shortness of breath, now on 6 L nasal cannula Objective - Exam Narrative Exam: Physical Exam: reviewed ED and hospitalist notes, limited due to conservation of PPE and decrease risk of transmission. General appearance: limited due to conservation of PPE Eyes: limited due to conservation of PPE HENT: Atraumatic; limited due to conservation of PPE Lungs: limited due to conservation of PPE CV: limited due to conservation of PPE Abdomen: limited due to conservation of PPE Extremities: limited due to conservation of PPE Skin: limited due to conservation of PPE Psych: limited due to conservation of PPE Neuro: limited due to conservation of PPE - Constitutional Vitals: Vital Signs Temp Pulse Resp BP Pulse Ox 98.1 F 55 L 17 92/59 99 06/28/20 06:12 06/28/20 06:12 06/28/20 06:12 06/28/20 06:12 06/28/20 06:12 Temperature -Last 24 Hours Temperature 98.1 F Temperature 97.5 F Temperature 97.8 F Temperature 98.3 F - Labs CBC & Chem 7: 06/27/20 05:27 06/28/20 06:05 Labs: Abnormal lab results 06/27/20 06/27/20 06/27/20 Range/Units 08:37 11:24 16:28 Creatinine (0.8-1.3) mg/dL Glucose (75-100) mg/dL POC Glucose 117 H 197 H 275 H (70-105) mg/dL 06/27/20 06/28/20 Range/Units 21:56 06:05 Creatinine 0.7 L (0.8-1.3) mg/dL Glucose 150 H (75-100) mg/dL POC Glucose 270 H (70-105) mg/dL
--- NOTE | 2020-06-28 08:31 | Progress Note ---
Assessment and Plan 39 y/o male with acute respiratory failure secondary to COVID 19 pneumonia. 1. Wean FiO2 for sats >88% 2. not a candidate for Convalescent plasma 3. Continue steroids for 10 days total, end on the . 4. electrolyte replacement per primary team 5. Proning as much as possible 6. Most likely patient will need oxygen at discharge. Will need ambulatory walk test prior to release. 7. Noticed that IMS placed on midodrine for hypotension. Now that oxygen requirement is improving, would be ok with fluid boluses but may need to check orthostatics to confirm that this is the cause of hypotension. Subjective Date of service: 06/28/20 Principal diagnosis: COVID-19 Interval history: Down to 4 liters now. Sats have been good. Still steroids. Think the last dose is tomorrow. Objective Vital Signs - 12hr 06/27/20 06/27/20 06/27/20 20:32 22:00 23:33 Temperature 97.5 F L Pulse Rate 58 L Respiratory 17 17 Rate Blood Pressure 89/50 O2 Sat by Pulse 99 96 96 Oximetry 06/28/20 06/28/20 06:12 08:01 Temperature 98.1 F Pulse Rate 55 L Respiratory 17 Rate Blood Pressure 92/59 82/46 O2 Sat by Pulse 99 Oximetry Constitutional: other (Mild respiratory distress on high flow nasal cannula at 80%) Eyes: non-icteric ENT: oropharynx moist Neck: supple, no lymphadenopathy, no JVD Ascultation: Bilateral: rhonchi Gastrointestinal: normoactive bowel sounds CBC and BMP: 06/27/20 05:27 06/28/20 06:05 ABG, PT/INR, D-dimer: PT/INR, D-dimer D-Dimer 383.39 ng/mlDDU (0-234) H 06/25/20 05:09 Abnormal lab findings: Abnormal Labs 06/16/20 06/16/20 06/16/20 15:21 15:21 15:21 WBC RBC Hgb Hct MCHC RDW Lymph % (Auto) Barton % (Auto) Barton # (Auto) Seg Neutrophils % Seg Neutrophils # D-Dimer 349.09 H Sodium Potassium Chloride Carbon Dioxide BUN Creatinine Glucose 291 H POC Glucose Hemoglobin A1c Ferritin 1670.0 H AST ALT Lactate Dehydrogenase 316 H C-Reactive Protein 36.30 H Total Protein Albumin Coronavirus (PCR) SARS-CoV-2 IgG Ab 06/16/20 06/16/20 06/17/20 15:21 15:21 05:44 WBC 11.6 H RBC 5.52 H 5.21 H Hgb 16.1 H 15.6 H Hct 48.3 H 46.6 H MCHC RDW Lymph % (Auto) 10.5 L Barton % (Auto) 7.7 H 11.7 H Barton # (Auto) 0.9 H 1.2 H Seg Neutrophils % 81.6 H Seg Neutrophils # 9.5 H D-Dimer Sodium Potassium Chloride Carbon Dioxide BUN Creatinine 0.5 L Glucose 289 H POC Glucose Hemoglobin A1c Ferritin AST ALT Lactate Dehydrogenase C-Reactive Protein Total Protein Albumin 3.8 L Coronavirus (PCR) SARS-CoV-2 IgG Ab 06/17/20 06/17/20 06/18/20 05:44 10:03 21:43 WBC RBC Hgb Hct MCHC RDW Lymph % (Auto) Barton % (Auto) Barton # (Auto) Seg Neutrophils % Seg Neutrophils # D-Dimer Sodium 136 L Potassium Chloride 97.8 L Carbon Dioxide 20 L BUN 22 H Creatinine Glucose 299 H POC Glucose 386 H Hemoglobin A1c Ferritin AST ALT Lactate Dehydrogenase C-Reactive Protein Total Protein Albumin Coronavirus (PCR) Positive A SARS-CoV-2 IgG Ab 06/19/20 06/19/20 06/19/20 05:19 05:19 07:52 WBC RBC 5.37 H Hgb 15.9 H Hct 46.9 H MCHC RDW 12.9 L Lymph % (Auto) Barton % (Auto) 9.7 H Barton # (Auto) 0.9 H Seg Neutrophils % 71.9 H Seg Neutrophils # D-Dimer Sodium Potassium Chloride Carbon Dioxide 21 L BUN 31 H Creatinine Glucose 353 H POC Glucose 360 H Hemoglobin A1c Ferritin AST ALT Lactate Dehydrogenase C-Reactive Protein Total Protein Albumin Coronavirus (PCR) SARS-CoV-2 IgG Ab 06/19/20 06/19/20 06/19/20 13:02 16:40 16:40 WBC RBC Hgb Hct MCHC RDW Lymph % (Auto) Barton % (Auto) Barton # (Auto) Seg Neutrophils % Seg Neutrophils # D-Dimer 574.02 H Sodium Potassium Chloride Carbon Dioxide BUN Creatinine Glucose POC Glucose 392 H Hemoglobin A1c Ferritin AST ALT Lactate Dehydrogenase 323 H C-Reactive Protein Total Protein Albumin Coronavirus (PCR) SARS-CoV-2 IgG Ab 06/19/20 06/19/20 06/19/20 16:40 16:40 16:40 WBC RBC Hgb Hct MCHC RDW Lymph % (Auto) Barton % (Auto) Barton # (Auto) Seg Neutrophils % Seg Neutrophils # D-Dimer Sodium Potassium Chloride Carbon Dioxide BUN Creatinine Glucose POC Glucose Hemoglobin A1c 10.8 H Ferritin 2098.0 H AST ALT Lactate Dehydrogenase C-Reactive Protein 5.10 H Total Protein Albumin Coronavirus (PCR) SARS-CoV-2 IgG Ab 06/19/20 06/19/20 06/20/20 17:50 23:00 08:12 WBC RBC Hgb Hct MCHC RDW Lymph % (Auto) Barton % (Auto) Barton # (Auto) Seg Neutrophils % Seg Neutrophils # D-Dimer Sodium Potassium Chloride Carbon Dioxide BUN Creatinine Glucose POC Glucose 412 H 317 H 286 H Hemoglobin A1c Ferritin AST ALT Lactate Dehydrogenase C-Reactive Protein Total Protein Albumin Coronavirus (PCR) SARS-CoV-2 IgG Ab 06/20/20 06/20/20 06/20/20 12:41 16:43 22:22 WBC RBC Hgb Hct MCHC RDW Lymph % (Auto) Barton % (Auto) Barton # (Auto) Seg Neutrophils % Seg Neutrophils # D-Dimer Sodium Potassium Chloride Carbon Dioxide BUN Creatinine Glucose POC Glucose 374 H 315 H 316 H Hemoglobin A1c Ferritin AST ALT Lactate Dehydrogenase C-Reactive Protein Total Protein Albumin Coronavirus (PCR) SARS-CoV-2 IgG Ab 06/21/20 06/21/20 06/21/20 07:13 07:13 09:14 WBC RBC Hgb Hct MCHC RDW Lymph % (Auto) Barton % (Auto) Barton # (Auto) Seg Neutrophils % Seg Neutrophils # D-Dimer 837.90 H Sodium Potassium Chloride Carbon Dioxide BUN Creatinine Glucose POC Glucose 229 H Hemoglobin A1c Ferritin AST ALT Lactate Dehydrogenase 231 H C-Reactive Protein 2.20 H Total Protein Albumin Coronavirus (PCR) SARS-CoV-2 IgG Ab 06/21/20 06/21/20 06/21/20 13:02 13:44 19:44 WBC RBC Hgb Hct MCHC RDW Lymph % (Auto) Barton % (Auto) Barton # (Auto) Seg Neutrophils % Seg Neutrophils # D-Dimer Sodium Potassium Chloride Carbon Dioxide BUN Creatinine Glucose POC Glucose 416 H 396 H Hemoglobin A1c Ferritin AST ALT Lactate Dehydrogenase C-Reactive Protein Total Protein Albumin Coronavirus (PCR) SARS-CoV-2 IgG Ab Reactive A 06/21/20 06/22/20 06/22/20 23:09 05:12 07:43 WBC RBC Hgb Hct MCHC RDW Lymph % (Auto) Barton % (Auto) Barton # (Auto) Seg Neutrophils % Seg Neutrophils # D-Dimer Sodium 136 L Potassium 3.3 L D Chloride Carbon Dioxide BUN 22 H Creatinine 0.5 L Glucose 256 H POC Glucose 328 H 248 H Hemoglobin A1c Ferritin AST 42 H ALT Lactate Dehydrogenase C-Reactive Protein Total Protein Albumin 3.0 L Coronavirus (PCR) SARS-CoV-2 IgG Ab 06/22/20 06/22/20 06/22/20 13:05 16:06 21:39 WBC RBC Hgb Hct MCHC RDW Lymph % (Auto) Barton % (Auto) Barton # (Auto) Seg Neutrophils % Seg Neutrophils # D-Dimer Sodium Potassium Chloride Carbon Dioxide BUN Creatinine Glucose POC Glucose 339 H 341 H 224 H Hemoglobin A1c Ferritin AST ALT Lactate Dehydrogenase C-Reactive Protein Total Protein Albumin Coronavirus (PCR) SARS-CoV-2 IgG Ab 06/23/20 06/23/20 06/23/20 05:31 05:31 05:31 WBC RBC Hgb Hct MCHC RDW Lymph % (Auto) Barton % (Auto) Barton # (Auto) Seg Neutrophils % Seg Neutrophils # D-Dimer 560.69 H Sodium Potassium Chloride Carbon Dioxide BUN Creatinine 0.6 L Glucose 201 H POC Glucose Hemoglobin A1c Ferritin 1770.0 H AST ALT Lactate Dehydrogenase 189 H C-Reactive Protein Total Protein Albumin Coronavirus (PCR) SARS-CoV-2 IgG Ab 06/23/20 06/23/20 06/24/20 18:01 23:06 08:18 WBC RBC Hgb Hct MCHC RDW Lymph % (Auto) Barton % (Auto) Barton # (Auto) Seg Neutrophils % Seg Neutrophils # D-Dimer Sodium Potassium Chloride Carbon Dioxide BUN Creatinine Glucose POC Glucose 379 H 265 H 145 H Hemoglobin A1c Ferritin AST ALT Lactate Dehydrogenase C-Reactive Protein Total Protein Albumin Coronavirus (PCR) SARS-CoV-2 IgG Ab 06/24/20 06/24/20 06/24/20 11:43 16:09 22:35 WBC RBC Hgb Hct MCHC RDW Lymph % (Auto) Barton % (Auto) Barton # (Auto) Seg Neutrophils % Seg Neutrophils # D-Dimer Sodium Potassium Chloride Carbon Dioxide BUN Creatinine Glucose POC Glucose 330 H 349 H 274 H Hemoglobin A1c Ferritin AST ALT Lactate Dehydrogenase C-Reactive Protein Total Protein Albumin Coronavirus (PCR) SARS-CoV-2 IgG Ab 06/25/20 06/25/20 06/25/20 05:09 05:09 05:09 WBC RBC Hgb Hct MCHC RDW Lymph % (Auto) Barton % (Auto) Barton # (Auto) Seg Neutrophils % Seg Neutrophils # D-Dimer 383.39 H Sodium Potassium 3.4 L Chloride Carbon Dioxide 21 L BUN Creatinine 0.4 L Glucose 170 H POC Glucose Hemoglobin A1c Ferritin 1844.0 H AST ALT 84 H Lactate Dehydrogenase 196 H C-Reactive Protein Total Protein Albumin 3.2 L Coronavirus (PCR) SARS-CoV-2 IgG Ab 06/25/20 06/25/20 06/25/20 05:09 07:39 11:01 WBC RBC 5.47 H Hgb 16.0 H Hct 46.6 H MCHC RDW 12.8 L Lymph % (Auto) Barton % (Auto) 8.1 H Barton # (Auto) Seg Neutrophils % Seg Neutrophils # D-Dimer Sodium Potassium Chloride Carbon Dioxide BUN Creatinine Glucose POC Glucose 182 H 272 H Hemoglobin A1c Ferritin AST ALT Lactate Dehydrogenase C-Reactive Protein Total Protein Albumin Coronavirus (PCR) SARS-CoV-2 IgG Ab 06/25/20 06/25/20 06/26/20 16:12 21:14 08:04 WBC RBC Hgb Hct MCHC RDW Lymph % (Auto) Barton % (Auto) Barton # (Auto) Seg Neutrophils % Seg Neutrophils # D-Dimer Sodium Potassium Chloride Carbon Dioxide BUN Creatinine 0.5 L Glucose 153 H POC Glucose 299 H 305 H Hemoglobin A1c Ferritin AST ALT Lactate Dehydrogenase C-Reactive Protein Total Protein Albumin Coronavirus (PCR) SARS-CoV-2 IgG Ab 06/26/20 06/26/20 06/26/20 08:05 12:38 16:00 WBC RBC Hgb Hct MCHC RDW Lymph % (Auto) Barton % (Auto) Barton # (Auto) Seg Neutrophils % Seg Neutrophils # D-Dimer Sodium Potassium Chloride Carbon Dioxide BUN Creatinine Glucose POC Glucose 136 H 253 H 302 H Hemoglobin A1c Ferritin AST ALT Lactate Dehydrogenase C-Reactive Protein Total Protein Albumin Coronavirus (PCR) SARS-CoV-2 IgG Ab 06/26/20 06/27/20 06/27/20 21:16 05:27 05:27 WBC RBC 5.19 H Hgb 15.5 H Hct MCHC 35 H RDW 12.9 L Lymph % (Auto) Barton % (Auto) 8.7 H Barton # (Auto) Seg Neutrophils % Seg Neutrophils # D-Dimer Sodium 136 L Potassium 3.4 L Chloride Carbon Dioxide BUN Creatinine 0.5 L Glucose 131 H POC Glucose 210 H Hemoglobin A1c Ferritin AST ALT 74 H Lactate Dehydrogenase C-Reactive Protein Total Protein 6.0 L Albumin 3.1 L Coronavirus (PCR) SARS-CoV-2 IgG Ab 06/27/20 06/27/20 06/27/20 08:37 11:24 16:28 WBC RBC Hgb Hct MCHC RDW Lymph % (Auto) Barton % (Auto) Barton # (Auto) Seg Neutrophils % Seg Neutrophils # D-Dimer Sodium Potassium Chloride Carbon Dioxide BUN Creatinine Glucose POC Glucose 117 H 197 H 275 H Hemoglobin A1c Ferritin AST ALT Lactate Dehydrogenase C-Reactive Protein Total Protein Albumin Coronavirus (PCR) SARS-CoV-2 IgG Ab 06/27/20 06/28/20 21:56 06:05 WBC RBC Hgb Hct MCHC RDW Lymph % (Auto) Barton % (Auto) Barton # (Auto) Seg Neutrophils % Seg Neutrophils # D-Dimer Sodium Potassium Chloride Carbon Dioxide BUN Creatinine 0.7 L Glucose 150 H POC Glucose 270 H Hemoglobin A1c Ferritin AST ALT Lactate Dehydrogenase C-Reactive Protein Total Protein Albumin Coronavirus (PCR) SARS-CoV-2 IgG Ab
[2020-06-28] MEDS: INSULIN LISPRO 100 UNIT/ML VIAL 3 mL SUB-Q SCH ×4 (08:37→22:39)
[2020-06-28] MEDS ORDERED: ALBUMIN HUMAN 25% (25 GM/100 ML) INJ IV NR (09:00)
[2020-06-28] MEDS: ZINC SULFATE 220 MG CAP PO SCH (09:23)
[2020-06-28] MEDS: MIDODRINE 5 MG TAB PO SCH ×3 (09:23→16:36)
[2020-06-28] MEDS: DEXAMETHASONE 4 MG TAB PO SCH (09:24)
[2020-06-28] MEDS: CHOLECALCIFEROL (VIT D3) 5,000 UNIT TAB PO SCH (09:24)
[2020-06-28] MEDS: INSULIN GLARGINE 100 UNITS/ML SUB-Q SCH ×2 (09:25→22:39)
[2020-06-28] MEDS: HEPARIN 5,000 UNIT/1 ML VIAL SUB-Q SCH ×2 (09:26→22:38)
[2020-06-28] MEDS: ASCORBIC ACID 500 MG TAB PO SCH (09:26)
--- NOTE | 2020-06-28 14:05 | Discharge Summary ---
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 EMS was notified and upon arrival found the patient in distress with a pulse oximetry of 80% on room air and plan patient has developed oxygenation via nonrebreather mask. In the emergency department patient was found to have a pulse oximetry of 80% on room air which is consistent with acute hypoxemic respiratory failure and his chest x-ray revealed bilateral pneumonia. Infectious disease and pulmonology were consulted. On 06/11 COVID-19 PCR resulted as positive and he was initiated on remdesivir on 06/18-06/22 along with vitamin C, zinc, vitamin D and dexamethasone. Patient was placed on high flow nasal cannula which is up titrated to an FiO2 of 100% but has since been weaned off and the patient will be discharged with oxygen therapy via nasal cannula. During the course patient's hospital stay he was hypotensive and received a total of 1 L normal saline bolus, 500 mL of albumin and was started on midodrine. Patient will be discharged to complete his 10-day course of dexamethasone, Eliquis 2.5 twice a day for 7 days, 5 mg 3 times a day for 3 days. Ambulatory SPO2 obtained on 06/29 were in the 90s therefore he does not need oxygen at the time discharge. Patient will need to follow-up with his primary care physician 1 to 2 weeks of discharge for evaluation of continued use of oxygen. Assessment and Plan - Patient Problems (1) Pneumonia due to COVID-19 virus Current Visit: Yes Status: Acute Plan to address problem: 06/17: COVID-19 PCR positive 06/16 through 06/18 antibiotic therapy, which was received by ID 06/18: Initiated on remdesivir, zinc, vitamin C, vitamin D, abx dc, methylprednisone changed to dexamathsone Will be discharged with supplemental oxygenation, need to follow-up with PCP for evaluation of continued use Prone to sleep as needed OOB 3 times daily and as tolerated Continue pulmonary hygiene with use of incentive spirometer Anticoagulation per COVID-19 protocol, will be discharged with a 7-day course of Eliquis 07/01 SARs CoV 2 antibody test ordered, consent obtained for transfusion of convalescent plasma if antibody testing is negative 06/22 Bilateral lower extremity duplex ultrasound negative for DVT 06/26 CTA chest ordered per ID recommendation shows no evidence of pulmonary embolism shows persistent bilateral patchy opacities in lungs consistent with COVID-19 pneumonia (2) Acute hypoxemic respiratory failure Current Visit: Yes Status: Acute Plan to address problem: Patient will be discharged with supplemental oxygen Wean as tolerated Dexamethasone therapy Continue pulmonary hygiene 06/22 Bilateral lower extremity duplex ultrasound negative for DVT 06/26 CTA chest ordered per ID recommendation which showed no evidence of pulmonary embolism but persistent bilateral patchy opacities (3) Hypokalemia Current Visit: Yes Status: Resolved Plan to address problem: 06/22 potassium 3.3, repleated 06/25 potassium 3.4, repleted, 06/25 potassium 3.7 06/27 potassium 3.4, repleted, 06/28 potassium 4.1 (4) Elevated d-dimer Current Visit: Yes Status: Acute Plan to address problem: Presented with a D-dimer of 349, 06/19 D-dimer 574, 06/21 D-dimer 837, 06/23 D- dimer 560, 06/25 D-dimer 383 06/22 bilateral lower extremity Doppler ultrasounds negative for DVT 06/26 CTA chest shows no evidence of pulmonary embolism Patient will need to be discharged with Eliquis 2.5 twice daily for 7 days (5) Diabetes Current Visit: Yes Status: Chronic Plan to address problem: 06/19 hemoglobin A1c 10.8 Patient will be discharged with metformin and blood glucose monitoring supplies Continue carb controlled diet Accu-Cheks per primary care physician instructions Follow-up with primary care physician Encourage dietary changes and increase physical activity upon discharge as tolerated (6) DVT prophylaxis Current Visit: Yes Status: Acute Plan to address problem: Discharge with Eliquis 2.5mg twice daily for 7 days Disposition: DC-01 TO HOME OR SELFCARE Time spent for discharge: 45 Core Measure Documentation - Palliative Care Palliative Care/ Comfort Measures: Not Applicable - Core Measures Any of the following diagnoses?: none Exam - Constitutional Vitals: Temp Pulse Resp BP Pulse Ox 98.6 F 63 18 111/68 98 06/28/20 11:18 06/28/20 11:18 06/28/20 11:18 06/28/20 11:18 06/28/20 11:18 General appearance: Present: no acute distress - EENT Eyes: Present: PERRL, EOM intact ENT: hearing intact, clear oral mucosa - Neck Neck: Present: supple - Respiratory Respiratory effort: normal Respiratory: bilateral: diminished - Cardiovascular Rhythm: regular Heart Sounds: Present: S1 & S2. Absent: systolic murmur, diastolic murmur - Extremities Extremities: no ischemia, pulses intact, pulses symmetrical, No edema, normal temperature, normal color, Full ROM Peripheral Pulses: within normal limits - Abdominal General gastrointestinal: Present: soft, non-tender, non-distended, normal bowel sounds - Integumentary Integumentary: Present: clear, warm, dry - Musculoskeletal Musculoskeletal: strength equal bilaterally - Psychiatric Psychiatric: appropriate mood/affect, cooperative - Neurologic Neurologic: CNII-XII intact, no focal deficits, moves all extremities - Allied Health Allied health notes reviewed: nursing Plan Activity: advance as tolerated Diet: diabetic, low carbohydrate Special Instructions: record blood sugar diary Additional Instructions: Present to nearest emergency department or contact your primary care physician if you experience worsening symptoms. Follow-up with your primary care physician within 1 to 2 weeks of discharge. You will be discharged with Eliquis, and dexamethasone. Follow the COVID-19 protocol set forth by the CDC and contained in the booklet your nurse will provide you. Follow up with: PRIMARY CARE, [Primary Care Provider] - 3-5 Days Prescriptions: dexAMETHasone [Dexamethasone] 6 mg PO QDAY #1 tablet Apixaban [Eliquis] 2.5 mg PO BID 7 Days #14 tablet Insulin NPH/Regular [Novolin 70/30] 25 unit SUB-Q BID #1 vial Ascorbic Acid [Vitamin C] 500 mg PO QDAY #30 tablet Cholecalciferol (Vitamin D3) [Vitamin D3] 5,000 unit PO DAILY #30 tablet Zinc Sulfate 220 mg PO QDAY #30 capsule Other Discharge Orders: Glucometer (Amb) Location: None Selected Glucometer supplies[Amb] Location: None Selected <ALFONZO MEDINA - Last Filed: 06/30/20 12:58> Providers - Providers Date of Admission: 06/16/20 18:24 Attending physician: ALFONZO MEDINA MD 06/18/20 09:10 Consult to Physician [CONS] Stat Comment: Consulting Provider: COREY GODWIN Physician Instructions: Reason For Exam: covid positive 06/18/20 09:18 Consult to Physician [CONS] Routine Comment: Consulting Provider: SALINA SZYMANSKI Physician Instructions: Reason For Exam: hypoxia 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
--- NOTE | 2020-06-28 14:18 | Progress Note ---
Assessment and Plan Assessment and plan: - Patient Problems (1) Pneumonia due to COVID-19 virus Current Visit: Yes Status: Acute Plan to address problem: 06/17: COVID-19 PCR positive 06/16 through 06/18 antibiotic therapy, which was received by ID 06/18: Initiated on remdesivir, zinc, vitamin C, vitamin D, abx dc, methylprednisone changed to dexamathsone Will be discharged with supplemental oxygenation, need to follow-up with PCP for evaluation of continued use Prone to sleep as needed OOB 3 times daily and as tolerated Continue pulmonary hygiene with use of incentive spirometer Anticoagulation per COVID-19 protocol, will be discharged with a 7-day course of Eliquis 07/01 SARs CoV 2 antibody test ordered, consent obtained for transfusion of convalescent plasma if antibody testing is negative 06/22 Bilateral lower extremity duplex ultrasound negative for DVT 06/26 CTA chest ordered per ID recommendation shows no evidence of pulmonary embolism shows persistent bilateral patchy opacities in lungs consistent with COVID-19 pneumonia (2) Acute hypoxemic respiratory failure Current Visit: Yes Status: Acute Plan to address problem: Patient will be discharged with supplemental oxygen Wean as tolerated Dexamethasone therapy Continue pulmonary hygiene 06/22 Bilateral lower extremity duplex ultrasound negative for DVT 06/26 CTA chest ordered per ID recommendation which showed no evidence of pulmonary embolism but persistent bilateral patchy opacities (3) Hypokalemia Current Visit: Yes Status: Resolved Plan to address problem: 06/22 potassium 3.3, repleated 06/25 potassium 3.4, repleted, 06/25 potassium 3.7 06/27 potassium 3.4, repleted, 06/28 potassium 4.1 (4) Elevated d-dimer Current Visit: Yes Status: Acute Plan to address problem: Presented with a D-dimer of 349, 06/19 D-dimer 574, 06/21 D-dimer 837, 06/23 D- dimer 560, 06/25 D-dimer 383 06/22 bilateral lower extremity Doppler ultrasounds negative for DVT 06/26 CTA chest shows no evidence of pulmonary embolism Patient will need to be discharged with Eliquis 2.5 twice daily for 7 days (5) Diabetes Current Visit: Yes Status: Chronic Plan to address problem: 06/19 hemoglobin A1c 10.8 Patient will be discharged with metformin and blood glucose monitoring supplies Continue carb controlled diet Accu-Cheks per primary care physician instructions Follow-up with primary care physician Encourage dietary changes and increase physical activity upon discharge as tolerated (6) DVT prophylaxis Current Visit: Yes Status: Acute Plan to address problem: Discharge with Eliquis 2.5mg twice daily for 7 days History Interval history: This is a 39-year-old male with diabetes mellitus who presented to the emergency department on 06/16 with complaints of feeling sick over the past week experiencing a subjective fever, dry cough, S OB, decreased exercise intolerance, malaise, body aches which worsened over the past 2 days prior to presentation after known COVID-19 exposure. EMS was notified and upon arrival found the patient in distress with a pulse oximetry of 80% on room air and plan patient has developed oxygenation via nonrebreather mask. In the emergency department patient was found to have a pulse oximetry of 80% on room air which is consistent with acute hypoxemic respiratory failure and his chest x-ray revealed bilateral pneumonia. Infectious disease and pulmonology were consulted. Today RT was able to wean the patient down to 4L nasal cannula. Patient was hypotensive and received 25 g albumin and was started on midodrine. DME ordered for home oxygen. 06/17: COVID-19 PCR positive 06/18:Initiated on remdesivir, zinc, vitamin C, vitamin D, abx dc, methylprednisone changed to dexamathsone 06/20: Remains in high flow nasal cannula, he is complaining of cough and shortness of breath with exertion. With the help of a accident report clerk patient was instructed on proning as much as possible and pulmonary hygiene. Patient remains on high flow nasal cannula at 80% FiO2 on 30 L. Patient is on remdesivir therapy day 08/24. Increased lantus and SSI to high dose for tighter BG control. 06/21: COVID-19 antibody test ordered for possible convalescent plasma transfusion given minimal provement in oxygenation. COVID-19 plasma transfusion consent obtained with the help of the language line. Patient states that he still get shortness of breath with any exertion and is still coughing. Lantus dosing increased for persistent hyperglycemia. Remdesivir therapy day 09/21 06/22: Patient remains on high flow NC at 80% FiO2. Remdesivir therapy day 10/22 06/24. Remains on high flow at 80%. No complaints. ID and pulm following 06/25. On 70% with sats >94%. No complaints. 06/26: FiO2 weaned to 60%, family updated, pt given total of 1L of NS during hospital stay 06/27: CTA chest completed Hospitalist Physical - Physical exam Narrative exam: - Constitutional Vitals: Temp Pulse Resp BP Pulse Ox 98.6 F 63 18 111/68 98 06/28/20 11:18 06/28/20 11:18 06/28/20 11:18 06/28/20 11:18 06/28/20 11:18 General appearance: Present: no acute distress - EENT Eyes: Present: PERRL, EOM intact ENT: hearing intact, clear oral mucosa - Neck Neck: Present: supple - Respiratory Respiratory effort: normal Respiratory: bilateral: diminished - Cardiovascular Rhythm: regular Heart Sounds: Present: S1 & S2. Absent: systolic murmur, diastolic murmur - Extremities Extremities: no ischemia, pulses intact, pulses symmetrical, No edema, normal temperature, normal color, Full ROM Peripheral Pulses: within normal limits - Abdominal General gastrointestinal: Present: soft, non-tender, non-distended, normal bowel sounds - Integumentary Integumentary: Present: clear, warm, dry - Musculoskeletal Musculoskeletal: strength equal bilaterally - Psychiatric Psychiatric: appropriate mood/affect, cooperative - Neurologic Neurologic: CNII-XII intact, no focal deficits, moves all extremities - Allied Health Allied health notes reviewed: nursing - Constitutional Vitals: Temp Pulse Resp BP Pulse Ox 98.6 F 63 18 111/68 98 06/28/20 11:18 06/28/20 11:18 06/28/20 11:18 06/28/20 11:18 06/28/20 11:18 General appearance: Present: no acute distress Results - Labs CBC & Chem 7: 06/27/20 05:27 06/28/20 06:05 Labs: Laboratory Last Values WBC 8.0 K/mm3 (4.5-11.0) 06/27/20 05:27 RBC 5.19 M/mm3 (3.65-5.03) H 06/27/20 05:27 Hgb 15.5 gm/dl (11.8-15.2) H 06/27/20 05:27 Hct 44.8 % (35.5-45.6) 06/27/20 05:27 MCV 86 fl (84-94) 06/27/20 05:27 MCH 30 pg (28-32) 06/27/20 05:27 MCHC 35 % (32-34) H 06/27/20 05:27 RDW 12.9 % (13.2-15.2) L 06/27/20 05:27 Plt Count 214 K/mm3 (140-440) 06/27/20 05:27 Lymph % (Auto) 34.1 % (13.4-35.0) 06/27/20 05:27 [place] % (Auto) 8.7 % (0.0-7.3) H 06/27/20 05:27 Eos % (Auto) 0.7 % (0.0-4.3) 06/27/20 05:27 Baso % (Auto) 0.5 % (0.0-1.8) 06/27/20 05:27 Lymph # (Auto) 2.7 K/mm3 (1.2-5.4) 06/27/20 05:27 [place] # (Auto) 0.7 K/mm3 (0.0-0.8) 06/27/20 05:27 Eos # (Auto) 0.1 K/mm3 (0.0-0.4) 06/27/20 05:27 Baso # (Auto) 0.0 K/mm3 (0.0-0.1) 06/27/20 05:27 Seg Neutrophils % 56.0 % (40.0-70.0) 06/27/20 05:27 Seg Neutrophils # 4.5 K/mm3 (1.8-7.7) 06/27/20 05:27 D-Dimer 383.39 ng/mlDDU (0-234) H 06/25/20 05:09 Sodium 138 mmol/L (137-145) 06/28/20 06:05 Potassium 4.1 mmol/L (3.6-5.0) D 06/28/20 06:05 Chloride 102.2 mmol/L (98-107) 06/28/20 06:05 Carbon Dioxide 28 mmol/L (22-30) 06/28/20 06:05 Anion Gap 12 mmol/L 06/28/20 06:05 BUN 12 mg/dL (9-20) 06/28/20 06:05 Creatinine 0.7 mg/dL (0.8-1.3) L 06/28/20 06:05 Estimated GFR > 60 ml/min 06/28/20 06:05 BUN/Creatinine Ratio 17 % 06/28/20 06:05 Glucose 150 mg/dL (75-100) H 06/28/20 06:05 POC Glucose 241 mg/dL (70-105) H 06/28/20 11:17 Hemoglobin A1c 10.8 % (4-6) H 06/19/20 16:40 Lactic Acid 1.30 mmol/L (0.7-2.0) 06/16/20 15:21 Calcium 8.9 mg/dL (8.4-10.2) 06/28/20 06:05 Ferritin 1844.0 ng/mL (30.0-300.0) H 06/25/20 05:09 Total Bilirubin 0.60 mg/dL (0.1-1.2) 06/27/20 05:27 AST 27 units/L (5-40) 06/27/20 05:27 ALT 74 units/L (7-56) H 06/27/20 05:27 Alkaline Phosphatase 61 units/L (35-129) 06/27/20 05:27 Lactate Dehydrogenase 196 units/L (91-180) H 06/25/20 05:09 C-Reactive Protein 0.70 mg/dL (0.00-1.30) 06/25/20 05:09 Total Protein 6.0 g/dL (6.3-8.2) L 06/27/20 05:27 Albumin 3.1 g/dL (3.9-5) L 06/27/20 05:27 Albumin/Globulin Ratio 1.1 % 06/27/20 05:27 Procalcitonin < 0.05 ng/mL (<0.15) 06/26/20 16:08 Urine Color Straw (Yellow) 06/26/20 Unknown Urine Turbidity Clear (Clear) 06/26/20 Unknown Urine pH 6.0 (5.0-7.0) 06/26/20 Unknown Ur Specific [place] 1.007 (1.003-1.030) 06/26/20 Unknown Urine Protein <15 mg/dl mg/dL (Negative) 06/26/20 Unknown Urine Glucose (UA) >=500 mg/dL (Negative) 06/26/20 Unknown Urine Ketones Neg mg/dL (Negative) 06/26/20 Unknown Urine Blood Neg (Negative) 06/26/20 Unknown Urine Nitrite Neg (Negative) 06/26/20 Unknown Urine Bilirubin Neg (Negative) 06/26/20 Unknown Urine Urobilinogen < 2.0 mg/dL (<2.0) 06/26/20 Unknown Ur Leukocyte Esterase Neg (Negative) 06/26/20 Unknown Urine WBC (Auto) < 1.0 /HPF (0.0-6.0) 06/26/20 Unknown Urine RBC (Auto) < 1.0 /HPF (0.0-6.0) 06/26/20 Unknown Urine Bacteria (Auto) 1+ /HPF (Negative) 06/26/20 Unknown Coronavirus (PCR) Positive (Negative) A 06/17/20 10:03 SARS-CoV-2 IgG Ab Reactive (NonReactive) A 06/21/20 13:02 Blood Type O POSITIVE 06/21/20 13:00 Antibody Screen Negative 06/21/20 13:00 Microbiology: Microbiology 06/26/20 16:08 Peripheral/Venous Blood Culture - Preliminary NO GROWTH AFTER 24 HOURS 06/26/20 16:08 Peripheral/Venous Blood Culture - Preliminary NO GROWTH AFTER 24 HOURS Bernal/IV: Voiding Method Toilet IV Catheter Type [Right Hand] Peripheral IV IV Catheter Type [Left INT / Saline Lock Antecubital] Active Medications - Current Medications Current Medications: Generic Name Dose Route Start Last Admin Trade Name Freq PRN Reason Stop Dose Admin Acetaminophen 650 mg 06/16/20 18:24 Tylenol PO Q4H PRN Pain MILD(1-3)/Fever >100.5/COLLAZO Ascorbic Acid 500 mg 06/18/20 10:00 06/28/20 09:26 Vitamin C PO 500 mg QDAY KATHARINE Administration Cholecalciferol 5,000 unit 06/18/20 10:00 06/28/20 09:24 Vitamin D3 PO 5,000 unit DAILY KATHARINE Administration Dexamethasone 6 mg 06/20/20 10:00 06/28/20 09:24 Decadron PO 06/29/20 10:01 6 mg DAILY KATHARINE Administration Dextrose 50 ml 06/19/20 08:36 D50w (25gm) Syringe IV Q30MIN PRN Hypoglycemia Protocol Heparin Sodium (Porcine) 5,000 unit 06/16/20 22:00 06/28/20 09:26 Heparin SUB-Q 5,000 unit Q12HR KATHARINE Administration Insulin Glargine 25 units 06/27/20 22:00 06/28/20 09:25 Lantus SUB-Q 25 units BID KATHARINE Administration Insulin Human Lispro 0 unit 06/19/20 11:30 06/28/20 13:52 Humalog SUB-Q 4 unit ACHS KATHARINE Administration Protocol Midodrine 10 mg 06/28/20 08:22 06/28/20 13:48 Proamatine PO 10 mg TID@0800,1200,1600 KATHARINE Administration Ondansetron HCl 4 mg 06/16/20 18:24 Zofran IV Q8H PRN Nausea And Vomiting Potassium Chloride 30 meq 06/28/20 17:59 K-Dur PO 06/28/20 18:00 ONCE ONE Sodium Chloride 10 ml 06/16/20 22:00 06/28/20 09:27 Sodium Chloride Flush Syringe 10 Ml IV 10 ml BID KATHARINE Administration Sodium Chloride 10 ml 06/16/20 18:24 06/18/20 05:38 Sodium Chloride Flush Syringe 10 Ml IV 10 ml PRN PRN Administration LINE FLUSH Zinc Sulfate 220 mg 06/18/20 10:00 06/28/20 09:23 Zinc Sulfate PO 220 mg QDAY KATHARINE Administration Nutrition/Malnutrition Assess - Dietary Evaluation Nutrition/Malnutrition Findings: Nutrition Notes Start: 06/23/20 12:57 Freq: Status: Active Protocol: Document 06/26/20 16:55 (Rec: 06/26/20 16:57 [id number]) Nutrition Notes Need for Assessment generated from: LOS Initial or Follow up Brief Note Other Pertinent Diagnosis Pneu d/t COVID-19(+), hyponatremia, hypokalemia Current Diet Consistent CHO Subjective/Other Information FU for DM education needs. Pt did not answer phone x2. Nutrition Intervention Follow-Up By: 06/28/20 Additional Comments FU for diet education needs
[2020-06-28] MEDS ORDERED: POTASSIUM CHLORIDE ER 10 MEQ TAB PO ONE (17:59)
[2020-06-29 06:52] VITALS: BP 93/58
[2020-06-29] MEDS: MIDODRINE 5 MG TAB PO SCH ×2 (08:20→12:08)
[2020-06-29] MEDS: INSULIN LISPRO 100 UNIT/ML VIAL 3 mL SUB-Q SCH ×2 (08:20→12:13)
[2020-06-29] MEDS: CHOLECALCIFEROL (VIT D3) 5,000 UNIT TAB PO SCH (12:08)
[2020-06-29] MEDS: ZINC SULFATE 220 MG CAP PO SCH (12:08)
[2020-06-29] MEDS: DEXAMETHASONE 4 MG TAB PO SCH (12:08)
[2020-06-29] MEDS: ASCORBIC ACID 500 MG TAB PO SCH (12:08)
[2020-06-29] MEDS: INSULIN GLARGINE 100 UNITS/ML SUB-Q SCH (12:12)
== END 2020-06-29 14:00 | disposition home or self-care (01) | DRG 177 ==
LOC: ED 14:15 → 3A 18:24
PROVIDERS: ADMIT Internal Medicine; ATTEND Internal Medicine
PROC: XW033E5 Introduction of Remdesivir Anti-infective into Peripheral Vein, Percutaneous Approach, New Technology Group 5 (ICD-10-PCS; principal; 2020-06-18)
DX: U07.1 COVID-19 (principal); J12.89 Other viral pneumonia; J96.01 Acute respiratory failure with hypoxia; R65.10 Systemic inflammatory response syndrome (SIRS) of non-infectious origin without acute organ dysfunction; E87.1 Hypo-osmolality and hyponatremia; E87.6 Hypokalemia; E11.9 Type 2 diabetes mellitus without complications; Z79.899 Other long term (current) drug therapy
CPT/HCPCS: 36415; 71045; 71275; 80048; 80053; 81001; 82140; 82728; 82947; 82962; 83036; 83615; 84145; 85025; 85379; 86140; 86850; 86900; 86901; 87040; 93970; 94760; G0378; J0456; J0696; J1100; J1644; J1815; J2920; J7040; J7050; J7512; J8540; P9047; Q9967; U0003